=== PATIENT | female | born 1945 | race Caucasian/White ===

== ENCOUNTER 2022-01-31 02:41 | Inpatient (IN) | payer MEDICARE, SELFPAY ==
[2022-01-31] VITALS (25 sets, daily range): BP systolic 98–123; BP diastolic 67–79; PULSE 68–127; RESP 14–18; TEMP 36.4–37; O2SAT 85–98; BMI 17.3
--- NOTE | 2022-01-31 02:51 | PCM.HP.STD ---
HPI - General General Date of Admission: 01/31/22 HPI Narrative JUANJOSE CUEVA, is a 76 F who presents as transfer from [facility]. The patient was recently seen ED in [place], and was transferred here for further cardiac evaluation. She has history of COPD with tobacco use of 40 years, and was recently evaluated by pulmonology for increasing shortness of breath and was increased on her inhalers however she continued to have symptoms. Today was the worst shortness of breath she has ever had and it was not alleviated with her home inhalers. She is on TRELEGY and albuterol inhaler. She presented to the ER with shortness of breath and was hypoxic at 88%, she was given steroids and duo nebs and her breathing did improve and she was 94 to 96% on 2 L. She did have elevated heart rate and EKG noted sinus tachycardia and a troponin was drawn which was elevated and subsequent second troponin was elevated, prompting transfer. Patient was transferred here in stable condition. Is a tobacco user 1 pack/day, for 40 years and family history did note father with early heart disease in his 40s [facility] Medical History COPD (chronic obstructive pulmonary disease) Hernia Kidney stones Smoker Home Medications albuterol sulfate 2 puff INHALATION Q4H PRN 01/31/22 [History Last Taken Unknown] jzxdufrrhir-ipqsagvyy-kzjlsjdm [Trelegy Ellipta] 1 ea INHALATION DAILY 01/31/22 [History Last Taken Unknown] ipratropium-albuterol 3 ml INHALATION Q6H PRN 01/31/22 [History Last Taken Unknown] ditxpezddkaa-vbxo-htmig acid [Multi Complete with Iron] 1 tab PO DAILY 01/31/22 [History Last Taken Unknown] omega 7-grn-koc-fish oil 2 cap PO DAILY 01/31/22 [History Last Taken Unknown] Allergy/AdvReac Type Severity Reaction Status Date / Time brompheniramine Allergy Other Verified 01/31/22 02:50 [From Bromphenex DM] dextromethorphan Allergy Other Verified 01/31/22 02:50 [From Bromphenex DM] pseudoephedrine Allergy Other Verified 01/31/22 02:50 [From Bromphenex DM] Social History Smoking Status: Current every day smoker tobacco type: cigarettes ROS ROS Narrative Patient review is notable for shortness of breath, ongoing weight loss, chest pain dysuria hematuria abdominal pain constipation Rest of seven-point review is negative as well Vital Signs Vital Signs Vital Signs: Weight Weight: 91 lb 11.397 oz Body Mass Index (BMI) 17.3 Physical Exam Narrative Narrative General Appearance ED: cachectic and NAD Nutritional Appearance: above dry mucous membranes normocephalic Eyes PERRL Neck thin Chest Wall inspection of chest normal and palpation of chest normal Respiratory normal respiratory effort, no retractions and minimal air movement but no wheezes Auscultation: Negative for rales, rhonchi or wheezes Cardio fast rate, regular rhythm, S1 normal heart sound, S2 normal heart sound and no murmurs GI non-tender, non-distended and no masses Auscultation: normoactive bowel sounds Palpation: soft; Negative for tender or guarding no lower extremity edema Assessment & Plan Assessment/Plan (1) NSTEMI, initial episode of care: (2) COPD exacerbation: (3) Acute and chronic respiratory failure with hypoxia: PLAN: Elevated troponin - NSTEMI - likely due to demand. Continue monitoring on telemetry, will give 25 mg metoprolol. 2D echo. Stress test and keep NPO. She was advised regarding smoking cessation Continue aspirin 81 mg daily Monitor BP PRN nitroglycerin Continue Heparin drip which patient was transferred on. COPD Continue scheduled DuoNebs while awake, continue p.o. 40 mg prednisone Patient is in no respiratory distress at this time Will titrate nasal cannula oxygen as needed No concern for pneumonia. 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
--- NOTE | 2022-01-31 03:08 | ECHOCS_ITS ---
Reason For Study: NSTEMI Procedure This was a 2D Doppler, Color Flow transthoracic echocardiogram. The study was technically difficult. Contrast injection was performed. Exam performed portable in patient room. Left Ventricle Normal LV size. Moderate segmental systolic dysfunction (see wall motion). The estimated ejection fraction is 35 %. No evidence for diastolic dysfunction. Mid-Anterior : Akinetic. Mid-Lateral : Akinetic. Mid-Posterior: Akinetic. Mid-Inferior: Akinetic. Mid-inferoseptal : Akinetic. Mid- anteroseptal : Akinetic. [place] : Akinetic. Right Ventricle Normal RV size. Normal systolic function. Atria Normal left atrium. Normal right atrium. No doppler evidence for ASD. Mitral Valve There is no mitral annular calcification. Anterior leaflet diffuse mitral valve thickening. Mild (1+) mitral valve insufficiency. Tricuspid Valve Normal tricuspid valve. Mild tricuspid valve insufficiency. Right ventricular systolic pressure estimated to be 36 mmHg. Aortic Valve Trisinus/trileaflet aortic valve. Mild focal aortic valve thickening. Pulmonic Valve The pulmonic valve is not well visualized. Great Vessels Normal sized aortic root. Pericardium/Pleural No pericardial effusion. Medication Diluted definity 2ml given slow IV push to enhance endocardial definition. MMode/2D Measurements & Calculations LVIDd: 4.0 cm IVSd: 0.81 cm Ao root diam: 3.1 cm LVIDs: 2.8 cm LVPWd: 0.72 cm RVDd: 2.3 cm FS: 29.8 % LAV(MOD-bp): 20.7 ml LA A4 area: 9.2 cm2 LA dimension(2D): 2.5 cm LAV(MOD-bp) Indexed: 15.1 ml/m2 LAV(MOD-sp2): 23.4 ml LAV(MOD-sp4): 17.4 ml RA A4 area: 7.0 cm2 Doppler Measurements & Calculations MV E max lauro: 79.5 cm/sec Lat Peak E' Lauro: 5.9 cm/sec Med Peak E' Lauro: 6.6 cm/sec MV A max lauro: 105.3 cm/sec E/E' lat: 13.5 E/E' med: 12.0 MV E/A: 0.75 Ao V2 max: 105.5 cm/sec PA V2 max: 92.0 cm/sec TR max lauro: 263.5 cm/sec Ao max P.5 mmHg TR max P.8 mmHg ECHO/Echo Complete W/ Contrast Interpretation Summary The study was technically difficult. Contrast injection was performed. Moderate segmental systolic dysfunction (see wall motion). The estimated ejection fraction is 35 %. Anterior leaflet diffuse mitral valve thickening. Mild (1+) mitral valve insufficiency. Mild tricuspid valve insufficiency. Mild focal aortic valve thickening. Right ventricular systolic pressure estimated to be 36 mmHg. No evidence for diastolic dysfunction. Comment: Based upon the 2D echocardiographic images of the left ventricle would consider in the differential diagnosis possible Takotsubo syndrome. Ordering Physician: Osmar Stephenson Referring Physician: Vannesa Martin Performed By: Annie Garcia RDCS
--- NOTE | 2022-01-31 03:08 | EKG12_ITS ---
Test Reason : Blood Pressure : / mmHG Vent. Rate : 120 BPM Atrial Rate : 120 BPM P-R Int : 124 ms QRS Dur : 074 ms QT Int : 240 ms P-R-T Axes : 076 006 133 degrees QTc Int : 339 ms Sinus tachycardia Septal infarct , age undetermined Abnormal ECG No previous ECGs available Confirmed by COREY MOSER, AIRN ([id number]), news videotape editor VERENICE NYE ([id number]) on 02/01/2022 9:33:05 AM Referred By: TIO Confirmed By:ARIN NICOLE MD
[2022-01-31 04:17] LABS: Absolute Lymphocyte Count 0.44 X10^3/uL (0.83-4.51); Absolute Neutrophil Count 5.7 X10^3/uL (2.0-7.7); Basophil# 0.01 X10^3/uL; Basophil% 0.2 % (0-1); Hematocrit 39.5 % (37-47); Hemoglobin 13.5 g/dL (12.0-15.0); Lymphocyte # 0.44 X10^3/ul (0.83-4.51); Mean Corp Hgb Conc 34.2 g/dL (32-36); Mean Corpuscular Hgb 30.8 pg (27.0-32.0); Mean Platelet Vol. 8.6 fl (6.2-12.0); Monocyte# 0.12 X10^3/uL; Monocyte% 1.9 % (0-10); NRBC Flagged by Analyzer 0 % (0-5); Neutrophil # 5.73 X10^3/uL (2.7-7.7); Neutrophil % 90.6 % (47-70); POSITIVE DIFFERENTIAL YES; Platelet Count 280 K/mm3 (150-450); RBC Distribution Width CV 12.7 % (11.6-14.6); RBC Distribution Width SD 42.2 fl (35.1-43.9); Red Blood Count 4.39 M/mm3 (4.2-5.4); White Blood Count 6.3 K/mm3 (4.4-11.0)
[2022-01-31 04:20] LABS: Differential Indicated SCAN CRITERIA MET
[2022-01-31 04:47] LABS: Anion Gap 7 (5-15); BUN 16 mg/dL (7-18); BUN/Creat Ratio 28.9 RATIO (10-20); Calcium,Total 8.8 mg/dL (8.5-10.1); Chloride 108 mmol/L (98-107); Creatinine, Serum 0.55 mg/dL (0.55-1.02); EST Glomerular Filtration Rate 114 mL/min (>60); Est Glom Filt Rate - Afr Amer 138 mL/min (>60); Estimated Creatinine Clearance 32.41 ml/min; Glucose 175 mg/dL (74-106); Magnesium 1.8 mg/dL (1.6-2.6); Potassium 3.8 mmol/L (3.5-5.1); Sodium Level 139 mmol/L (136-145)
[2022-01-31 04:48] LABS: Cholesterol 211 mg/dL (200); High Density Lipoprotein 87 mg/dL; Triglycerides 50 mg/dL; Troponin-I HS 1573 pg/mL (3.0-54.0); Very Low Density Lipoprotein 10 mg/dL (5-40)
[2022-01-31 05:35] LABS: Partial Thromboplast Time 45.5 Seconds (24.1-36.2)
[2022-01-31] MEDS: Ipratropium/Albuterol Sulfate 3 ML AMPUL.NEB INHALATION ×2 (06:48→19:13)
[2022-01-31] MEDS: 0.9% Saline Lock 10 ML Syringe IV ×2 (06:51→21:00)
[2022-01-31] MEDS: Metoprolol Tartrate 5 MG/5 ML Vial 2.5 MG IV (06:51)
[2022-01-31] MEDS: 0.9% Normal Saline 1,000 ML 100 ML IV (06:58)
--- NOTE | 2022-01-31 08:27 | PCM.CONS.C ---
Assessment & Plan Assessment/Plan (1) NSTEMI, initial episode of care: PLAN: The patient has findings compatible with an acute non-ST segment elevation ID. It is unclear at this time whether this is an acute coronary syndrome event/type I event versus whether this could be a type II event brought out by the patient's underlying pulmonary disease process. At the moment she is being monitored. Her cardiac enzymes have been followed. Her ECG has been reviewed. Recommendation has been made for further evaluation with diagnostic cardiac catheterization. The procedure and risks of been discussed with her. She was agreeable to this approach. (2) Acute and chronic respiratory failure with hypoxia: PLAN: The patient does have what appears to be acute on chronic respiratory failure and has been noted to have reports of hypoxemia. This may be secondary to her underlying COPD process. She does follow with a curb machine operator-not at [facility]. Depending upon her clinical course she may need evaluation by pulmonology while at [facility]. (3) COPD exacerbation: PLAN: The patient has a history of COPD. She does not know the details of her COPD. She states she does not wear O2 nasal cannula at home. Again she may need further pulmonology evaluation while she is hospitalized. Addt'l Comments This note was generated using a voice recognition system and there may be incorrect words, spelling or punctuation that were not noted when reviewing the office note prior to saving. HPI Consult Data Date of Consult: 01/31/22 HPI Narrative HPI Narrative: JUANJOSE CUEVA, is a 76 year old white female who presents for vascular consultation based upon concerns of an acute non-ST segment elevation ID. She states she has a longstanding history of COPD and chronic shortness of breath/dyspnea. However yesterday she felt that she could not get her breath. She presented to her local emergency department at [facility]. She was noted to have concerns of shortness of breath and dyspnea. She was reported as having an abnormal troponin I level. Her ECG demonstrated sinus rhythm with possible left atrial enlargement. A chest CTA was performed which reported no pulmonary emboli. There was a question of a possible pulmonary changes related to aspiration. She was recommended for further evaluation with diagnostic cardiac catheterization. She stated she requested transfer to [facility] as she has had family members cared for at this institution in the past. During this event she has denied chest discomfort. She denies any nausea or emesis or diaphoresis. She has had no episodes of orthopnea or PND or peripheral pitting edema. She states she has been losing weight. She has had repeat troponin I levels which have been elevated. A repeat ECG demonstrated sinus rhythm with a septal ID pattern of indeterminate age cannot be excluded. PFSH Medical History COPD (chronic obstructive pulmonary disease) Hernia Kidney stones Smoker Home Medications albuterol sulfate 2 puff INHALATION Q4H PRN 01/31/22 [History Last Taken Unknown] kxrnyurxrhc-egvgylsor-wfbbpkhb [Trelegy Ellipta] 1 ea INHALATION DAILY 01/31/22 [History Last Taken Unknown] ipratropium-albuterol 3 ml INHALATION Q6H PRN 01/31/22 [History Last Taken Unknown] hxfztmfytyli-ajpm-hawsd acid [Multi Complete with Iron] 1 tab PO DAILY 01/31/22 [History Last Taken Unknown] omega 5-mif-ntl-fish oil 2 cap PO DAILY 01/31/22 [History Last Taken Unknown] Allergy/AdvReac Type Severity Reaction Status Date / Time brompheniramine Allergy Other Verified 01/31/22 02:50 [From Bromphenex DM] dextromethorphan Allergy Other Verified 01/31/22 02:50 [From Bromphenex DM] pseudoephedrine Allergy Other Verified 01/31/22 02:50 [From Bromphenex DM] Social History Smoking Status: Current every day smoker tobacco type: cigarettes ROS Constitutional Constitutional: Reports as per HPI Eyes Eyes: Reports as per HPI ENT HEENT: Reports as per HPI Cardiovascular Cardiovascular: Reports dyspnea Respiratory/Chest Respiratory/Chest: Reports dyspnea Gastrointestinal Gastrointestinal: Reports weight changes Genitourinary Genitourinary: Reports as per HPI Musculoskeletal Musculoskeletal: Reports as per HPI Integumentary Integumentary: Reports as per HPI Neurologic Neurologic: Reports as per HPI Physical Exam Const alert, oriented x3 and no apparent distress Orientation / Consciousness: awake HEENT normocephalic, head/scalp atraumatic and hearing grossly normal bilaterally Eyes PERRL, EOMs intact bilaterally and conjunctivae normal Neck full ROM, supple and no JVD Resp Auscultation: diminished lung sounds Cardio regular rate, regular rhythm, S1 normal heart sound and S2 normal heart sound Extremity normal to inspection Skin no rashes or lesions noted Neuro oriented x3, moves all extremities, no focal motor deficits and no sensory deficits noted Psych mental status grossly normal Risk Stratification Risk Stratification Applicable: Yes Age >/= 65: Yes >/= 3 CAD Risk Factors (HTN, HLD, DM, family hx of CAD, or current smoker): No Aspirin Use in the Past 7 Days: No Severe Angina (>/= episodes in 24 hours): No EKG ST Changes >/= 0.5mm: No Positive Cardiac Marker: Yes SHAILA Risk Stratification Score: 2 SHAILA % Risk: 8% Risk Procedure Criteria Type of Procedure Procedure Type: Elective Elective Risks - COVID COVID Risk Discussion: The surgeon/proceduralist and patient have discussed in detail the risk of exposure to and/or potential harm posed by the COVID-19 virus with having a surgery/procedure at this time versus the risk of delaying the surgery/procedure. It is not possible to know either the risk of delaying the surgery or procedure or chance of getting an infection with perfect accuracy, but a joint decision was made between the patient and the surgeon/proceduralist to proceed at this time with the scheduled surgery/procedure as indicated on the consent form. Objective Data Vital Signs: Vital Signs Temp Pulse Resp BP Pulse Ox 98.2 F 104 H 18 112/77 94 01/31/22 06:34 01/31/22 07:31 01/31/22 06:48 01/31/22 06:34 01/31/22 06:48 Oxygen Flow Rate (L/min) 2 Oxygen Delivery Method Nasal Cannula Weight: 91 lb 11.397 oz Body Mass Index (BMI) 17.3 Intake & Output: Intake and Output for Last 24 Hours 01/29/22 01/30/22 01/31/22 23:59 23:59 23:59 Intake Total 22.74 / 22.74 Balance 22.74 / 22.74 Lab / Micro Data Result Diagrams: 01/31/22 04:09 01/31/22 04:09 Labs: Laboratory Results - last 24 hr 01/31/22 04:09: Sodium 139, Potassium 3.8, Chloride 108 H, Carbon Dioxide 24.0, Anion Gap 7, BUN 16, Creatinine 0.55, Estim Creat Clear Calc 32.41, Est GFR (MDRD) Af Amer 138, Est GFR (MDRD) Non-Af 114, BUN/Creatinine Ratio 28.9 H, Glucose 175 H, Calcium 8.8, Magnesium 1.8 01/31/22 04:09: Troponin I High Sens 1573 H*, Triglycerides 50, Cholesterol 211 H, LDL Cholesterol 114, VLDL Cholesterol 10, HDL Cholesterol 87 01/31/22 04:09: WBC 6.3, RBC 4.39, Hgb 13.5, Hct 39.5, MCV 90.0, MCH 30.8, MCHC 34.2, RDW Std Deviation 42.2, RDW Coeff of Carter 12.7, Plt Count 280, MPV 8.6, Immature Gran % (Auto) 0.300, Neut % (Auto) 90.6 H, Lymph % (Auto) 7.0 L, [place] % (Auto) 1.9, Eos % (Auto) 0.0, Baso % (Auto) 0.2, Absolute Neuts (auto) 5.7, Absolute Lymphs (auto) 0.44 L, Nucleated RBC % 0 01/31/22 05:09: APTT 45.5 H Cardiology Labs/Tests 01/31/22 04:09: Sodium 139, Potassium 3.8, Chloride 108 H, Carbon Dioxide 24.0, Anion Gap 7, BUN 16, Creatinine 0.55, Est GFR (MDRD) Af Amer 138, Est GFR (MDRD) Non-Af 114, BUN/Creatinine Ratio 28.9 H, Glucose 175 H, Calcium 8.8, Magnesium 1.8 01/31/22 04:09: Triglycerides 50, Cholesterol 211 H, LDL Cholesterol 114, VLDL Cholesterol 10, HDL Cholesterol 87 01/31/22 04:09: WBC 6.3, RBC 4.39, Hgb 13.5, Hct 39.5, MCV 90.0, MCH 30.8, MCHC 34.2, Plt Count 280, MPV 8.6, Immature Gran % (Auto) 0.300, Neut % (Auto) 90.6 H, Lymph % (Auto) 7.0 L, [place] % (Auto) 1.9, Eos % (Auto) 0.0, Baso % (Auto) 0.2, Absolute Neuts (auto) 5.7, Nucleated RBC % 0 01/31/22 05:09: APTT 45.5 H Rhythm: Sinus rhythm EKG: As noted above
[2022-01-31 08:54] LABS: Hemoglobin A1c 5.8 % (3.8-5.6)
--- NOTE | 2022-01-31 09:05 | CASEMGMT ---
According to the [facility] website, the following are in-network tertiary facilities: [facility], [place], [facility], [facility], [facility], [facility], and . Darrell THOMASON CM
[2022-01-31 10:00] LABS: Thyroid Stim Hormone (TSH) 0.29 uIU/mL (0.358-3.74)
--- NOTE | 2022-01-31 10:08 | CL.D_ITS ---
Patient Name: JUANJOSE CUEVA Study Date: 01/31/2022 Performing: Oliver Silverio MD Ht: 61 inches 155 cm : 1945 Wt: 92.7 lbs 42 kg Age: 76 Gender: female BSA: 1.36 PROCEDURE(S) PERFORMED [id number])LHC/COR/LV CLINICAL PROFILE AND INDICATIONS Indications: ACS <= 24 hrs, Suspected CAD Heart Failure: None Stress/Imaging Stress/Image Study Performed: No Angina Classification Anginal Classification w/in 2 Weeks: CCS IV CAD Presentations: Non-STEMI. CONCLUSIONS Elevated Left Ventricular End Diastolic Pressure Segmented LV systolic dysfunction- Mild LVEF: by LV gram 45 % [place] Multivessel CAD (non angiographically significant) RECOMMENDATIONS Risk factor modification Medical therapy DESCRIPTION OF PROCEDURE The patient arrived to the procedure lab. The risks and benefits of the procedure as well as a full d escription of our services here and current unavailability of surgical backup were fully explained to the patient and/or their significant other prior to the catheterization. The Timeout was completed, verifying the correct patient and procedure. The patient's procedural site was prepped and draped in the usual fashion. Local anesthetic was given subcutaneously to right radial region with Lidocaine 2% . Using a modified Seldinger technique, arterial access was obtained via the right radial artery, a 6 Fr sheath was inserted. Left Coronary Artery selective angiography was performed in multiple views u sing a 5 Fr. 4.0 [place] catheter. Right Coronary Artery selective angiography was then performed in mu ltiple views using a 5 Fr. 4.0 [place] catheter. Left Ventriculography was performed in OROZCO projection using a 5 Fr. [place] catheter. LV to AO pullback pressures were then recorded.The arterial sheath was pulled and a TR Band was applied for hemostasis CORONARY ANGIOGRAPHY DOMINANCE: Co- Dominant LEFT HEART ASSESSMENT Left Ventricular Ejection Fraction: by LV Gram 45 % Anterior Hypokinesis. Inferior Mid Hypokinesis. Apical Hypokinesis Elevated Left Ventricular End Diastolic Pressure LVEDP: 35 mmHg LEFT MAIN: Angiographically normal LEFT ANTERIOR DESCENDING ARTERY: Mild luminal irregularities DIAGONAL 1: Proximal - eccentric: 25 % Stenosis CIRCUMFLEX ARTERY: PROX CIRC: Mild luminal irregularities RIGHT CORONARY ARTERY: Mild luminal irregularities PROX RCA: eccentric: 25 % Stenosis AORTIC ROOT: Angiographically normal COMPLICATIONS No Complications PROCEDURE MEDICATIONS Versed 1 mg IV Fentanyl 50 mcg IV Baby Aspirin (81mg) 1 Tabs PO @ 01/31/2022 08:32:25 Heparin given IA 01/31/2022 08:47:49 Verapamil 2.5mg, Ntg 100mcgs, 3000 units of Heparin given IA 01/31/2022 08:47:49 SUMMARY OF HEMODYNAMIC DATA Time AIR REST ECG 08:30:18 Art 121/66 (88) 08:44:25 AO 109/69 (85) SA 08:50:06 LV 123/7, 37 08:56:33 LV 121/5, 35 08:56:40 LV 120/16, 40 08:57:44 LV 124/9, 38 08:57:51 LVp 127/9, 35 08:57:58 AOp 121/74 (95) 08:58:03 Signed By Oliver Silverio MD On 01/31/2022 10:07:06 Oliver Silverio MD
[2022-01-31] MEDS: Acetaminophen 325 MG Tablet 650 MG PO (10:11)
[2022-01-31] MEDS: predniSONE 20 MG Tablet 40 MG PO (10:13)
--- NOTE | 2022-01-31 10:14 | EX.PCM.CONCC ---
Assessment & Plan Assessment/Plan (1) NSTEMI, initial episode of care: PLAN: RECOMMENDATIONS: 1. Wean supplemental oxygen to maintain saturations at or above 90%. 2. Okay to continue scheduled bronchodilators and Solu-Medrol for now. 3. Resume Trelegy Ellipta at discharge along with as needed albuterol. 4. Perform walking oximetry study prior to consideration for discharge home. 5. The patient should follow-up in the pulmonary medicine clinic within 2 weeks of discharge. IMPRESSIONS: 1. Shortness of breath/NSTEMI The patient initially presented as a transfer of care from an outside facility with shortness of breath and an elevated troponin. There was initial concern for an NSTEMI and the patient was taken for cardiac catheterization, which revealed nonangiographically significant bent[place] multivessel coronary artery disease. Ejection fraction was noted to be 45%. I do strongly suspect that there may have been a component of demand ischemia, especially in light of the patient's presumed obstructive lung disease. Although she reported that she was seen by a iron erector in [place] recently, pulmonary function studies nor an ambulatory walking test were ever completed. Therefore, it is certainly plausible that the patient may have been hypoxic at home yesterday with associated tachycardia and tachypnea, which may have precipitated an event of demand ischemia. She does have an extensive tobacco abuse history and stated that she does not have intentions to continue to smoke after discharge. Ultimately, the patient needs to establish care with a local iron erector and needs to have PFTs completed. In addition, I would strongly recommend that an ambulatory pulse oximetry study be completed prior to her discharge home to ensure that she does not require supplemental O2 upon discharge. The patient should follow-up in the pulmonary medicine clinic within 2 weeks of discharge so that PFTs can be order and further pulmonary optimization undertaken. 2. Chronic tobacco dependency I personally spent 3 minutes discussing the deleterious effects of continued tobacco use with the patient, including modalities which could be utilized to achieve a smoke-free lifestyle. As noted above, the patient needs to have baseline PFTs completed on an outpatient basis. In addition, she would be a candidate for yearly LDCT. This note was generated with [employer] software. It may contain incorrect words, spelling, and punctuation that were not noted in checking the note before signing. HPI Consult Data Date of Consult: 01/31/22 HPI Narrative Reason for Consultation: Evaluate for pulmonary reason for demand ischemia HPI Narrative: The patient is a 76-year-old female, with a history as outlined below, who presented as a transfer of care on January 31 from [facility] with increasing shortness of breath. The patient does have an extensive tobacco abuse history of approximately 40 pack years and continues to smoke cigarettes daily. She did report that she was evaluated by a iron erector in [place] recently, who apparently told her that she had COPD based upon the results of a recent CT chest. According to the patient, pulmonary function studies nor an ambulatory walking oximetry study was ever ordered. Instead, the patient was placed on Trelegy by the pulmonary provider. To date, the patient has never completed pulmonary function studies. She does report that she utilizes her Trelegy once daily as instructed in the morning and typically requires the use of her rescue inhaler several times per week. Yesterday, the patient developed more significant dyspnea, which did not respond to the use of her rescue inhaler or nebulizer. On presentation to [facility], the patient was noted to be tachycardic but otherwise hemodynamically stable on 2 L/min of supplemental oxygen. CBC with differential was unremarkable. Chemistry profile was unrevealing. Troponin was increased at 1573. The patient was subsequently evaluated by cardiology and underwent a catheterization, which revealed an elevated LVEDP, mild segmental systolic dysfunction, ejection fraction of 45% and benton multivessel coronary artery disease. PFSH Medical History COPD (chronic obstructive pulmonary disease) Hernia Kidney stones Smoker Home Medications albuterol sulfate 2 puff INHALATION Q4H PRN 01/31/22 [History Last Taken Unknown] gqapvmyayto-cpoavmsou-imxpotoe [Trelegy Ellipta] 1 ea INHALATION DAILY 01/31/22 [History Last Taken Unknown] ipratropium-albuterol 3 ml INHALATION Q6H PRN 01/31/22 [History Last Taken Unknown] zrxhseapoipy-ctys-bpskh acid [Multi Complete with Iron] 1 tab PO DAILY 01/31/22 [History Last Taken Unknown] omega 1-err-rvf-fish oil 2 cap PO DAILY 01/31/22 [History Last Taken Unknown] Allergy/AdvReac Type Severity Reaction Status Date / Time brompheniramine Allergy Other Verified 01/31/22 02:50 [From Bromphenex DM] dextromethorphan Allergy Other Verified 01/31/22 02:50 [From Bromphenex DM] pseudoephedrine Allergy Other Verified 01/31/22 02:50 [From Bromphenex DM] Surgical History (Updated 01/31/22 @ 11:43 by Katie Barrera) History of left heart catheterization (LHC) (~01/31/22) Social History Smoking Status: Current every day smoker tobacco type: cigarettes ROS Constitutional Constitutional: Denies body ache(s), chills or fatigue Eyes Eyes: Denies blurry vision or change in vision ENT HEENT: Denies dizziness, epistaxis or headache(s) Cardiovascular Cardiovascular: Reports dyspnea Respiratory/Chest Respiratory/Chest: Reports cough and dyspnea Gastrointestinal Gastrointestinal: Denies abdominal pain, diarrhea, nausea or vomiting Genitourinary Genitourinary: Denies difficulty urinating Musculoskeletal Musculoskeletal: Denies arthralgias, back pain or joint pain Integumentary Integumentary: Denies lesions Neurologic Neurologic: Denies abnormal gait or abnormal speech Psychiatric Psychiatric: Denies anxiety or depression Endocrine Endocrinology: Denies fatigue Hematologic/Lymphatic Hematologic/Lymphatic: Denies easy bleeding or easy bruising Physical Exam Const alert and no apparent distress General Appearance: cooperative HEENT normocephalic, head/scalp atraumatic and moist oral mucous membranes Eyes PERRL, EOMs intact bilaterally and conjunctivae normal Neck supple General: trachea midline Chest Chest Narrative: Increased AP diameter. Resp Resp Narrative: Prolonged expiratory phase. Auscultation: wheezes and diminished lung sounds Cardio regular rate and regular rhythm GI normal to inspection, nondistended, normoactive bowel sounds Extremity no clubbing, cyanosis or edema Skin no rashes or lesions noted Neuro CN's II-XII intact bilaterally, moves all extremities and no focal motor deficits Psych cooperative and affect normal Lab / Micro Data Result Diagrams: 01/31/22 04:09 01/31/22 04:09 Labs: Laboratory Results - last 24 hr 01/31/22 04:09: Sodium 139, Potassium 3.8, Chloride 108 H, Carbon Dioxide 24.0, Anion Gap 7, BUN 16, Creatinine 0.55, Estim Creat Clear Calc 32.41, Est GFR (MDRD) Af Amer 138, Est GFR (MDRD) Non-Af 114, BUN/Creatinine Ratio 28.9 H, Glucose 175 H, Calcium 8.8, Magnesium 1.8 01/31/22 04:09: Troponin I High Sens 1573 H*, Triglycerides 50, Cholesterol 211 H, LDL Cholesterol 114, VLDL Cholesterol 10, HDL Cholesterol 87 01/31/22 04:09: WBC 6.3, RBC 4.39, Hgb 13.5, Hct 39.5, MCV 90.0, MCH 30.8, MCHC 34.2, RDW Std Deviation 42.2, RDW Coeff of Carter 12.7, Plt Count 280, MPV 8.6, Immature Gran % (Auto) 0.300, Neut % (Auto) 90.6 H, Lymph % (Auto) 7.0 L, [place] % (Auto) 1.9, Eos % (Auto) 0.0, Baso % (Auto) 0.2, Absolute Neuts (auto) 5.7, Absolute Lymphs (auto) 0.44 L, Nucleated RBC % 0 01/31/22 04:09: Troponin I High Sens Cancelled, TSH 0.29 L 01/31/22 04:09: Hemoglobin A1c 5.8 H 01/31/22 05:09: APTT 45.5 H Charges/Coding Visit Charges Inpatient E&M: 12284 Init Hosp L3 Behavior Interventions Behavior Intervention: 04259 Smoking Cessation 3-10 min
--- NOTE | 2022-01-31 10:45 | CASEMGMT ---
PADDY MAYS assessment: Face to Face with patient for initial transition planning/care coordination assessment. PADDY MAYS introduced self and role at [facility], pt voices understanding and consents to assessment. Pt is sitting up in bed in no distress on 2L nc. Pt is A/Ox4 and answers all questions appropriately. Care providers, pharmacy, and demographics verified/updated. Presentation: Pt was direct admit from [facility] for elev troponin-pt also with SOB Admitting dx: NSTEMI, COPD, hypoxia PCP: Mario Specialists: Pt states was seeing pulm in [place] but plans to f/u with Dr. Olson or [place] Preferred Pharmacy: [facility] Benefit[facility] Living Will/HPOA: Pt does not have LW/HPOA and declines AD info. LNOK: Rich Soria, Living Arrangements: Pt lives with in 1 story home with 3-4 railed steps in and states no concerns at home. Pt is independent with ADL's. Transportation: Pt states drives self and states no transportation concerns. DME/HHC: Pt states no current DME or need for any further DME. Pt states no preference for DME company, if qualifies for home oxygen at discharge. Pt states no hx of HHC or SNF. Pt states no concerns with going home at time of discharge. Pt states is retired. Pt states smokes pack cigarettes daily and does not drink ETOH. Pt states no further concerns/needs. CM to follow for home oxygen need and any further discharge planning/needs. Advised pt to ask for CM if any further questions/concerns/needs arise, voices understanding. Pt Goal: Home Plan: [place] PADDY MAYS
[2022-01-31 11:41] LABS: Bedside Glucose 118 mg/dL (74-106)
--- NOTE | 2022-01-31 12:16 | PN.HOSP_ITS ---
Documented by User: Ean PRAKASH 01/31/22 12:33 Subjective Subjective Patient is a 76-year-old female lying in bed, alert and orient x3. Patient reports that she still feels short of breath, although reports this is improved from admission. Denies development of any infectious symptoms to include fever, chills, N/V/D. Does not appear in acute distress. Objective Data Objective Data Vital Signs: Vital Signs Temp Pulse Resp BP Pulse Ox 97.8 F 89 14 115/79 98 01/31/22 09:23 01/31/22 11:47 01/31/22 11:47 01/31/22 11:47 01/31/22 11:47 Oxygen Flow Rate (L/min) 2 Oxygen Delivery Method Nasal Cannula Weight: 91 lb 11.397 oz Body Mass Index (BMI) 17.3 Intake & Output: Intake and Output for Last 24 Hours 01/29/22 01/30/22 01/31/22 23:59 23:59 23:59 Intake Total 382.74 / 382.74 Balance 382.74 / 382.74 Lab / Micro Data Result Diagrams: 01/31/22 04:09 01/31/22 04:09 Labs: Laboratory Results - last 24 hr 01/31/22 04:09: Sodium 139, Potassium 3.8, Chloride 108 H, Carbon Dioxide 24.0, Anion Gap 7, BUN 16, Creatinine 0.55, Estim Creat Clear Calc 32.41, Est GFR (MDRD) Af Amer 138, Est GFR (MDRD) Non-Af 114, BUN/Creatinine Ratio 28.9 H, Glucose 175 H, Calcium 8.8, Magnesium 1.8 01/31/22 04:09: Troponin I High Sens 1573 H*, Triglycerides 50, Cholesterol 211 H, LDL Cholesterol 114, VLDL Cholesterol 10, HDL Cholesterol 87 01/31/22 04:09: WBC 6.3, RBC 4.39, Hgb 13.5, Hct 39.5, MCV 90.0, MCH 30.8, MCHC 34.2, RDW Std Deviation 42.2, RDW Coeff of Carter 12.7, Plt Count 280, MPV 8.6, Immature Gran % (Auto) 0.300, Neut % (Auto) 90.6 H, Lymph % (Auto) 7.0 L, [place] % (Auto) 1.9, Eos % (Auto) 0.0, Baso % (Auto) 0.2, Absolute Neuts (auto) 5.7, Absolute Lymphs (auto) 0.44 L, Nucleated RBC % 0 01/31/22 04:09: Troponin I High Sens Cancelled, TSH 0.29 L 01/31/22 04:09: Hemoglobin A1c 5.8 H 01/31/22 04:09: Free T4 1.40 01/31/22 05:09: APTT 45.5 H 01/31/22 11:31: POC Glucose 118 H Radiography Diagnostic Testing: Radiology Impression Echocardiogram 01/31/22 03:08 Interpretation Summary The study was technically difficult. Contrast injection was performed. Moderate segmental systolic dysfunction (see wall motion). The estimated ejection fraction is 35 %. Anterior leaflet diffuse mitral valve thickening. Mild (1+) mitral valve insufficiency. Mild tricuspid valve insufficiency. Mild focal aortic valve thickening. Right ventricular systolic pressure estimated to be 36 mmHg. No evidence for diastolic dysfunction. Comment: Based upon the 2D echocardiographic images of the left ventricle would consider in the differential diagnosis possible Takotsubo syndrome. Ordering Physician: Osmar Stephenson Referring Physician: Vannesa Martin Performed By: Annie Garcia RDCS Physical Exam Const alert, oriented x3 and no apparent distress HEENT head/scalp atraumatic and moist oral mucous membranes Head and Scalp: normocephalic Eyes conjunctivae normal Neck no lymphadenopathy, supple and no JVD Resp normal respiratory effort, no retractions and no use of accessory muscles Resp Narrative: Patient is having 98% on 2 L via nasal cannula. Cardio regular rate, regular rhythm and no JVD GI normal to inspection, nondistended, normoactive bowel sounds Extremity normal to inspection Skin no rashes or lesions noted Neuro CN's II-XII intact bilaterally Psych affect normal Assessment & Plan Assessment/Plan (1) Acute and chronic respiratory failure with hypoxia: (2) COPD exacerbation: (3) NSTEMI, initial episode of care: PLAN: Day 1 Discharge planning: Current plan is for patient to discharge home medically ready. 1) acute on chronic hypoxic respiratory failure Unclear etiology, probable mixed component of her underlying CHF with Takotsubo and COPD. Currently satting 98% at 2 L via nasal cannula. Pulmonology consult obtained, recommendations are to continue current treatments and wean off oxygen as tolerated with outpatient follow-up to conduct PFTs. Echocardiogram obtained and demonstrated moderate's systolic dysfunction, an EF of 35% and RVSP of 36 mmHg and no evidence of diastolic dysfunction, findings consistent with Takotsubo syndrome. We will continue supplemental oxygen and wean as tolerated, initiate Entresto, initiate Coreg, initiate albuterol and transition from prednisone to IV steroids. 2) Elevated troponins secondary to demand ischemia Secondary to demand ischemia from #1. Plan as above and for patient to follow- up with pulmonary medicine as an outpatient. 3) hyperglycemia without history of diabetes Elevated glucose recorded on admission, hemoglobin A1c is 5.8. Continue Accu- Cheks with sliding scale insulin. 4) hyperlipidemia Cholesterol at 211. Continue statin, will need to be added to home regimen. DVT prophylaxis - Heparin Patient seen by Ean Huggins PA-C, under the supervision of Dr. Velázquez. Time spent on patient care: 10 minutes. Documented by User: Dr. Miriam Velázquez MD 01/31/22 12:34 Objective Data Lab / Micro Data Result Diagrams: 01/31/22 04:09 01/31/22 04:09
[2022-01-31] MEDS: Carvedilol 3.125 MG TABLET PO ×2 (13:02→20:58)
[2022-01-31 16:41] LABS: Bedside Glucose 124 mg/dL (74-106)
[2022-01-31] MEDS: SACUBITRIL/VALSARTAN 24/26 MG TABLET 1 EACH PO (20:58)
[2022-01-31] MEDS: Atorvastatin Calcium 40 MG Tablet PO (20:58)
[2022-01-31 21:06] LABS: Bedside Glucose 134 mg/dL (74-106)
[2022-01-31] MEDS: MELATONIN 3 MG TABLET PO (21:10)
[2022-02-01] VITALS (7 sets, daily range): BP systolic 120–126; BP diastolic 66–72; PULSE 72–95; RESP 16–18; TEMP 36.6–36.8; O2SAT 86–95
[2022-02-01 05:31] LABS: Absolute Neutrophil Count 11.9 X10^3/uL (2.0-7.7); Basophil# 0.02 X10^3/uL; Basophil% 0.1 % (0-1); Eosinophil# 0.01 X10^3/uL; Eosinophils% 0.1 % (0-5); Hematocrit 38.8 % (37-47); Hemoglobin 13.4 g/dL (12.0-15.0); Lymphocyte % 6.6 % (19-41); Mean Corp Hgb Conc 34.5 g/dL (32-36); Mean Corpuscular Hgb 30.3 pg (27.0-32.0); Mean Corpuscular Volume 87.8 fL (81-99); Monocyte# 0.77 X10^3/uL; Monocyte% 5.6 % (0-10); NRBC Flagged by Analyzer 0 % (0-5); Neutrophil # 11.86 X10^3/uL (2.7-7.7); Platelet Count 346 K/mm3 (150-450); RBC Distribution Width SD 41.7 fl (35.1-43.9); Red Blood Count 4.42 M/mm3 (4.2-5.4); White Blood Count 13.6 K/mm3 (4.4-11.0)
[2022-02-01] MEDS: 0.9% Saline Lock 10 ML Syringe IV (05:43)
[2022-02-01 05:53] LABS: ALB/GLOB Ratio 0.9 RATIO (0.9-2.4); AST(SGOT) 32 U/L (15-37); Alanine Aminotransfer ALT/SGPT 29 U/L (13-56); Alkaline Phosphatase 83 U/L (45-117); Anion Gap 4 (5-15); BUN 22 mg/dL (7-18); BUN/Creat Ratio 49.8 RATIO (10-20); Calcium,Total 8.7 mg/dL (8.5-10.1); Chloride 106 mmol/L (98-107); Creatinine, Serum 0.44 mg/dL (0.55-1.02); EST Glomerular Filtration Rate 148 mL/min (>60); Est Glom Filt Rate - Afr Amer 178 mL/min (>60); Estimated Creatinine Clearance 32.73 ml/min; Globulin 3.2 g/dL (2.2-4.2); Glucose 139 mg/dL (74-106); Magnesium 1.9 mg/dL (1.6-2.6); Potassium 4.2 mmol/L (3.5-5.1); Protein, Total 6.2 g/dL (6.4-8.2); Sodium Level 138 mmol/L (136-145)
--- NOTE | 2022-02-01 06:30 | PN.CC_ITS ---
Assessment & Plan Assessment/Plan (1) NSTEMI, initial episode of care: PLAN: RECOMMENDATIONS: 1. Wean supplemental oxygen to maintain saturations at or above 90%. 2. Continue bronchodilators and steroids. At discharge, please provide the patient with a 5-day course of prednisone 40 mg daily. 3. Resume Trelegy Ellipta at discharge along with as needed albuterol. 4. Perform walking oximetry study prior to consideration for discharge home. 5. The patient should follow-up in the pulmonary medicine clinic within 2 weeks of discharge. IMPRESSIONS: 1. Shortness of breath/NSTEMI The patient initially presented as a transfer of care from an outside facility with shortness of breath and an elevated troponin. There was initial concern for an NSTEMI and the patient was taken for cardiac catheterization, which revealed nonangiographically significant [place] multivessel coronary artery disease. Ejection fraction was noted to be 45%. I do strongly suspect that there may have been a component of demand ischemia, especially in light of the patient's presumed obstructive lung disease. Although she reported that she was seen by a medical interpreter in [place] recently, pulmonary function studies nor an ambulatory walking test were ever completed. Therefore, it is certainly plausible that the patient may have been hypoxic at home with associated tachycardia and tachypnea, which may have precipitated an event of demand ischemia. She does have an extensive tobacco abuse history and stated that she does not have intentions to continue to smoke after discharge. Ultimately, the patient needs to establish care with a local medical interpreter and needs to have PFTs completed. In addition, I would strongly recommend that an ambulatory pulse oximetry study be completed prior to her discharge home to ensure that she does not require supplemental O2 upon discharge. The patient should follow-up in the pulmonary medicine clinic within 2 weeks of discharge so that PFTs can be order and further pulmonary optimization undertaken. 2. Chronic tobacco dependency Tobacco cessation counseling was provided. As noted above, the patient needs to have baseline PFTs completed on an outpatient basis. In addition, she would be a candidate for yearly LDCT. This note was generated with [employer] software. It may contain incorrect words, spelling, and punctuation that were not noted in checking the note before signing. Subjective Subjective The patient was seen and examined at the bedside this morning. Events from the last 24 hours have been reviewed. The patient is currently afebrile, hemodynamically stable and maintaining appropriate oxygen saturations on 2 L/min via nasal cannula. There were no overnight issues. The patient is resting comfortably this morning without any specific complaints. Objective Data Objective Data The patient's most recent lab work, culture data and imaging studies have all been personally reviewed. Surface echocardiogram demonstrated moderate segmental systolic dysfunction with an ejection fraction of 35%. Right ventricular systolic pressure was estimated to be 36 mmHg. Cardiac catheterization demonstrated an elevated LVEDP and [place] multivessel coronary disease. Vital Signs: Vital Signs Temp Pulse Resp BP Pulse Ox 98.3 F 72 16 120/66 95 02/01/22 02:30 02/01/22 02:50 02/01/22 02:30 02/01/22 02:30 02/01/22 02:30 Oxygen Flow Rate (L/min) [ 2 AMBULATING with Oxygen #1] Oxygen Flow Rate (L/min) 2 Oxygen Delivery Method Nasal Cannula Weight: 42 kg Body Mass Index (BMI) 17.3 Intake & Output: Intake and Output for Last 24 Hours 01/30/22 01/31/22 02/01/22 23:59 23:59 23:59 Intake Total 1309.41 / 1309.41 Balance 1309.41 / 1309.41 Medical Nutrition Assessment Dietitian: Malnutrition Criteria Met Start: 01/31/22 15:34 Freq: Status: Active Protocol: Document 01/31/22 15:34 (Rec: 01/31/22 15:34 [id number]) Nutrition Malnutrition Evidence of Malnutrition Exists Yes Malnutrition (severe): Chronic Evidenced By Suboptimal Energy Intake ( Severe),Weight Loss (Severe), Physical Changes (Severe) Clinical Problem Chronic Disease or Condition Related Malnutrition Etiology severe, chronic malnutrition r /t inadequate energy intake w/ increased energy needs d/t COPD Signs/Symptoms as evidenced by estimated PO intake meeting <75% of estimated energy needs > 3 months; unintentional wt loss of 23.3#/20% x 1 year; severe cachexia- muscle wasting/fat loss evident in temples, clavicle, orbital, upper extremities; BMI 17.3 Status Active Problem Recommendation Dietitian Recommendations/Changes given severe malnutrition, will change diet to regular; will add ensure enlive 120mL 4x/day w/medpass and magic cup w/ dinner for additional calories/protein if consumed. Lab / Micro Data Attestation: I reviewed the patient's lab results. Result Diagrams: 02/01/22 04:41 02/01/22 04:41 Labs: Laboratory Results - last 24 hr 01/31/22 04:09: Troponin I High Sens Cancelled, TSH 0.29 L 01/31/22 04:09: Hemoglobin A1c 5.8 H 01/31/22 04:09: Free T4 1.40 01/31/22 11:31: POC Glucose 118 H 01/31/22 16:29: POC Glucose 124 H 01/31/22 20:57: POC Glucose 134 H 02/01/22 04:41: Sodium 138, Potassium 4.2, Chloride 106, Carbon Dioxide 28.0, Anion Gap 4 L, BUN 22 H, Creatinine 0.44 L, Estim Creat Clear Calc 32.73, Est GFR (MDRD) Af Amer 178, Est GFR (MDRD) Non-Af 148, BUN/Creatinine Ratio 49.8 H, Glucose 139 H, Calcium 8.7, Magnesium 1.9, Total Bilirubin 0.30, AST 32, ALT 29, Alkaline Phosphatase 83, Total Protein 6.2 L, Albumin 3.0 L, Globulin 3.2, Albumin/Globulin Ratio 0.9 02/01/22 04:41: WBC 13.6 H, RBC 4.42, Hgb 13.4, Hct 38.8, MCV 87.8, MCH 30.3, M CHC 34.5, RDW Std Deviation 41.7, RDW Coeff of Carter 13.0, Plt Count 346, MPV 9.0, Immature Gran % (Auto) 0.600, Neut % (Auto) 87.0 H, Lymph % (Auto) 6.6 L, [place] % (Auto) 5.6, Eos % (Auto) 0.1, Baso % (Auto) 0.1, Absolute Neuts (auto) 11.9 H, Absolute Lymphs (auto) 0.90, Nucleated RBC % 0 Radiography Diagnostic Testing: Radiology Impression Echocardiogram 01/31/22 03:08 Interpretation Summary The study was technically difficult. Contrast injection was performed. Moderate segmental systolic dysfunction (see wall motion). The estimated ejection fraction is 35 %. Anterior leaflet diffuse mitral valve thickening. Mild (1+) mitral valve insufficiency. Mild tricuspid valve insufficiency. Mild focal aortic valve thickening. Right ventricular systolic pressure estimated to be 36 mmHg. No evidence for diastolic dysfunction. Comment: Based upon the 2D echocardiographic images of the left ventricle would consider in the differential diagnosis possible Takotsubo syndrome. Ordering Physician: Osmar Stephenson Referring Physician: Vannesa Martin Performed By: Annie Garcia RDCS Physical Exam Const alert and no apparent distress General Appearance: cooperative Nutritional Appearance: thin HEENT normocephalic, head/scalp atraumatic and moist oral mucous membranes Eyes PERRL, EOMs intact bilaterally and conjunctivae normal Neck supple General: trachea midline Chest Chest Narrative: Increased AP diameter. Resp Resp Narrative: Prolonged expiratory phase. Auscultation: diminished lung sounds Cardio regular rate and regular rhythm GI normal to inspection, nondistended, normoactive bowel sounds Extremity no clubbing, cyanosis or edema Skin no rashes or lesions noted Neuro CN's II-XII intact bilaterally, moves all extremities and no focal motor deficits Psych cooperative and affect normal Charges/Coding Visit Charges Inpatient E&M: 08845 Subs Hosp L2
[2022-02-01 07:01] LABS: Bedside Glucose 149 mg/dL (74-106)
[2022-02-01] MEDS: Ipratropium/Albuterol Sulfate 3 ML AMPUL.NEB INHALATION (07:25)
[2022-02-01] MEDS: SACUBITRIL/VALSARTAN 24/26 MG TABLET 1 EACH PO (09:08)
[2022-02-01] MEDS: Aspirin 81 MG TAB.CHEW PO (09:08)
[2022-02-01] MEDS: Carvedilol 3.125 MG TABLET PO (09:08)
--- NOTE | 2022-02-01 09:20 | PN.CARD_ITS ---
Subjective Subjective The patient states she feels better this day. She is not complaining of any concerning chest discomfort. She has had no worsening shortness of breath or dyspnea. Objective Data Vital Signs: Vital Signs Temp Pulse Resp BP Pulse Ox 97.9 F 95 18 126/72 H 90 02/01/22 07:28 02/01/22 07:28 02/01/22 07:28 02/01/22 07:28 02/01/22 08:59 Oxygen Flow Rate (L/min) [ 4 AMBULATING with Oxygen #2] Oxygen Flow Rate (L/min) [ 2 AMBULATING with Oxygen #1] Oxygen Flow Rate (L/min) 2 Oxygen Delivery Method Nasal Cannula Weight: 92 lb 9.506 oz Body Mass Index (BMI) 17.3 Intake & Output: Intake and Output for Last 24 Hours 01/30/22 01/31/22 02/01/22 23:59 23:59 23:59 Intake Total 1309.41 / 1309.41 Balance 1309.41 / 1309.41 Lab / Micro Data Result Diagrams: 02/01/22 04:41 02/01/22 04:41 Labs: Laboratory Results - last 24 hr 01/31/22 04:09: Troponin I High Sens Cancelled, TSH 0.29 L 01/31/22 04:09: Free T4 1.40 01/31/22 11:31: POC Glucose 118 H 01/31/22 16:29: POC Glucose 124 H 01/31/22 20:57: POC Glucose 134 H 02/01/22 04:41: Sodium 138, Potassium 4.2, Chloride 106, Carbon Dioxide 28.0, Anion Gap 4 L, BUN 22 H, Creatinine 0.44 L, Estim Creat Clear Calc 32.73, Est GFR (MDRD) Af Amer 178, Est GFR (MDRD) Non-Af 148, BUN/Creatinine Ratio 49.8 H, Glucose 139 H, Calcium 8.7, Magnesium 1.9, Total Bilirubin 0.30, AST 32, ALT 29, Alkaline Phosphatase 83, Total Protein 6.2 L, Albumin 3.0 L, Globulin 3.2, Albumin/Globulin Ratio 0.9 02/01/22 04:41: WBC 13.6 H, RBC 4.42, Hgb 13.4, Hct 38.8, MCV 87.8, MCH 30.3, MCHC 34.5, RDW Std Deviation 41.7, RDW Coeff of Carter 13.0, Plt Count 346, MPV 9.0, Immature Gran % (Auto) 0.600, Neut % (Auto) 87.0 H, Lymph % (Auto) 6.6 L, [place] % (Auto) 5.6, Eos % (Auto) 0.1, Baso % (Auto) 0.1, Absolute Neuts (auto) 11.9 H, Absolute Lymphs (auto) 0.90, Nucleated RBC % 0 02/01/22 06:56: POC Glucose 149 H Cardiology Labs/Tests 02/01/22 04:41: Sodium 138, Potassium 4.2, Chloride 106, Carbon Dioxide 28.0, Anion Gap 4 L, BUN 22 H, Creatinine 0.44 L, Est GFR (MDRD) Af Amer 178, Est GFR (MDRD) Non-Af 148, BUN/Creatinine Ratio 49.8 H, Glucose 139 H, Calcium 8.7, Magnesium 1.9, Total Bilirubin 0.30 02/01/22 04:41: WBC 13.6 H, RBC 4.42, Hgb 13.4, Hct 38.8, MCV 87.8, MCH 30.3, MCHC 34.5, Plt Count 346, MPV 9.0, Immature Gran % (Auto) 0.600, Neut % (Auto) 87.0 H, Lymph % (Auto) 6.6 L, [place] % (Auto) 5.6, Eos % (Auto) 0.1, Baso % (Auto) 0.1, Absolute Neuts (auto) 11.9 H, Nucleated RBC % 0 Rhythm: Sinus rhythm Radiography Diagnostic Testing: Radiology Impression Echocardiogram 01/31/22 03:08 Interpretation Summary The study was technically difficult. Contrast injection was performed. Moderate segmental systolic dysfunction (see wall motion). The estimated ejection fraction is 35 %. Anterior leaflet diffuse mitral valve thickening. Mild (1+) mitral valve insufficiency. Mild tricuspid valve insufficiency. Mild focal aortic valve thickening. Right ventricular systolic pressure estimated to be 36 mmHg. No evidence for diastolic dysfunction. Comment: Based upon the 2D echocardiographic images of the left ventricle would consider in the differential diagnosis possible Takotsubo syndrome. Ordering Physician: Osmar Stephenson Referring Physician: Vannesa Martin Performed By: Annie Garcia RDCS Physical Exam Const alert, oriented x3 and no apparent distress Orientation / Consciousness: awake HEENT normocephalic, head/scalp atraumatic and hearing grossly normal bilaterally Eyes PERRL, EOMs intact bilaterally and conjunctivae normal Neck full ROM, supple and no JVD Resp Auscultation: diminished lung sounds Cardio regular rate, regular rhythm, S1 normal heart sound and S2 normal heart sound Extremity normal to inspection Peripheral Pulses: Yes radial pulses present right (No bruits: No hematoma) 2+ Skin no rashes or lesions noted Neuro oriented x3, moves all extremities, no focal motor deficits and no sensory deficits noted Psych mental status grossly normal Assessment & Plan Assessment/Plan (1) NSTEMI, initial episode of care: PLAN: The patient has findings compatible with an acute non-ST segment elevation [place]. She has undergone further evaluation with both transthoracic echocardiogram and diagnostic cardiac catheterization. Based upon the results she does not appear to have angiographically significant CAD to explain her symptoms and/or events. Her left ventricular wall motion systolic function appear potentially compatible with an underlying Takotsubo syndrome which may be secondary to her acute respiratory syndrome/hypoxemia. Thus at the present time she will continue medical therapy which is included the initiation of beta-blockers and afterload reducing agents. She will need continued future outpatient cardiovascular follow-up including outpatient echocardiographic studies to monitor her left ventricular wall motion and systolic function and LVEF-which hopefully will improve over time. (2) Acute and chronic respiratory failure with hypoxia: PLAN: The patient does have what appears to be acute on chronic respiratory failure and has been noted to have reports of hypoxemia. This may be secondary to her underlying COPD process. She has been evaluated by Dr. Olson of pulmonology/critical care medicine. She states she has elected to continue to follow with him (3) COPD exacerbation: PLAN: The patient has a history of COPD. She does not know the details of her COPD. She will continue evaluation and care per internal medicine and pulmonology. Addt'l Comments The patient's case was discussed and reviewed at length with the patient. This note was generated using a voice recognition system and there may be incorrect words, spelling or punctuation that were not noted when reviewing the office note prior to saving. Procedure Criteria Type of Procedure Procedure Type: Elective Elective Risks - COVID COVID Risk Discussion: The surgeon/proceduralist and patient have discussed in detail the risk of exposure to and/or potential harm posed by the COVID-19 virus with having a surgery/procedure at this time versus the risk of delaying the surgery/procedure. It is not possible to know either the risk of delaying the surgery or procedure or chance of getting an infection with perfect accuracy, but a joint decision was made between the patient and the surgeon/proceduralist to proceed at this time with the scheduled surgery/procedure as indicated on the consent form.
--- NOTE | 2022-02-01 10:16 | CASEMGMT ---
Per Daniela RN, pt qualifies for 4L w/ exertion and pt had stated no preference for [employer]. Order signed and faxed to [employer]. Pt to be provided with [employer] portable tank with instructions to call [employer] at discharge. Pt has been independent in room and states no further concerns with going home at discharge. Pt provided with pulse ox from [facility] with instructions by RN. Pt updated on home oxygen and voices no further questions/concerns/needs. SStaten PADDY CM
--- NOTE | 2022-02-01 10:52 | DCINST_ITS ---
Discharge Instructions Diet Discharge Diet: - (Cardiac low fat/low cholesterol diet in addition to ADA 1800 given new onset prediabetes.) Activity Discharge Activity: - (Encourage mild activity until re-evaluation per Pulmonary given oxygen usage, COPD exacerbation.) May resume sexual activity in: 10-14 days Weight Bearing Status: Weight bearing as tolerated Dressing / Incision Call your doctor if your incision/area has: Continuous Slow Oozing, Sudden Increased Bleeding, Increased Pain/ Swelling, Increased Redness, Foul Smelling Discharge and Swelling at the incision site Call your doctor if you observe: Fever of 101 or Higher, Numbness or Tingling, Shortness of breath, Dizziness, Swelling in the ankles, Chest pain, Increased palpitations (irregular heartbeat) and Uncontrolled pain Follow Up Care Test Results: Test results from this visit will be discussed in further detail at your follow-up appointment, if applicable. Discharge Plan Admission Admit Date/Time: 01/31/22 02:41 Primary Reason for Your Visit: Hypoxia, COPD Exacerbation, NSTEMI, Prediabetes Attending Provider: Miriam Velázquez Primary Care Provider: Vannesa Martin Consulting Providers: Oliver Silverio ; Delon Heredia ; Shiva Olson ; Osiris Vanegas [employer] TECHNICIAN Instructions Patient Instructions: Prediabetes, Understanding Oxygen Therapy, Healthy Meals for Diabetes, Understanding Carbohydrates, Eating Out When You Have Diabetes, What Is COPD?, Using a Nebulizer (Adult), Heart Attack Meds, Heart Attack: Back at Home Additional Instructions / Restrictions: FOLLOW-UP/ADMISSION EVALUATION: #1. Oxygen needs with Acute COPD Exacerbation: Please continue to use your supplemental oxygen until it is appropriate evaluated and potentially weaned per Pulmonary medicine. Please complete the steroid taper and if you notice upon completion recurrent shortness of breath please immediately notify the Pulmonary office. #2. Acute Heart Attack secondary to demand from oxygen needs from #1: Your h eart catheterization demonstrated no severe findings therefore no stents were required but cardiology recommended medical management. This regimen will include: aspirin, statin, low-dose Coreg as well as low-dose Entresto per cardiology. Please contact Cardiology office if you notice any routine low or high blood pressures. Cardiology will arrange another future echocardiogram potentially in 6-8 weeks but this can be reviewed at your follow-up. #3. Hyperglycemia with new diagnosis prediabetes: Your HgbA1c was 5.8% which is consistent with prediabetes. Please continue to attempt to reduce this with diet alterations, specifically with the recommended Cardiac/ADA 1800 regimen. #4. Abnormal TSH: Your thyroid function, specifically your TSH was 0.29 which is mildly decreased; however, your free T4 was obtained and noted to be normal 1.40. We consider this subclinical with recommendation for repeat studies given current acute presentation with PCP at follow-up in 6 weeks. Discharge Orders/Prescriptions Prescriptions: New atorvastatin 40 mg Tablet 40 mg PO QHS 30 Days Qty: 30 RF: 1 carvedilol 3.125 mg Tablet 3.125 mg PO BID 30 Days Qty: 60 RF: 1 aspirin 81 mg Tablet,Chewable 81 mg PO BREAKFAST 30 Days Qty: 30 RF: 1 Entresto 24-26 mg Tablet 1 ea PO BID 30 Days Qty: 60 RF: 1 albuterol sulfate 2.5 mg /3 mL (0.083 %) Solution For Nebulization 2.5 mg inhalation Q2H PRN PRN (Reason: Dyspnea, wheezing) 30 Days Qty: 180 RF: 0 Continued ipratropium-albuterol 0.5 mg-3 mg(2.5 mg base)/3 mL solution for nebulization 3 ml inhalation Q6H PRN (Reason: sob) RF: 0 albuterol sulfate 90 mcg/actuation HFA aerosol inhaler 2 puff INHALATION Q4H PRN (Reason: sob) RF: 0 Multi Complete with Iron 18-400 mg-mcg Tablet 1 tab PO DAILY RF: 0 omega [id number]-fish oil 120-180-500 mg Capsule 2 cap PO DAILY RF: 0 Trelegy Ellipta 100-62.5-25 mcg blister with device 1 ea INHALATION DAILY RF: 0 Referrals / Follow Up: Vannesa Martin MD [Primary Care Provider] - (Follow-up within 3-5 days to review admission.) Shiva Olson DO [STAFF PHYSICIAN] - 02/16/22 9:45 am (Follow-up in 2 weeks, may see [employer]OADBAND TECHNICIAN.) Oliver Silverio MD [STAFF PHYSICIAN] - (Follow-up per Cardiology discretion, may see [employer]AD[employer]AND TECHNICIAN. ) Disposition Disposition (needs filled in before D/C Order can be placed): Home, Self Care
--- NOTE | 2022-02-01 11:04 | PCM.DC.SUM ---
Providers Date of Admission: 01/31/22 Primary Care Physician: Dr. Vannesa Martin MD Consultations 01/31/22 03:08 Consult: Cardiology Routine Consulting Provider: Oliver Silverio Reason for Consult: eval NSTEMI EMERGENT Consult: No Notified: Yes Date Notified: 01/31/22 Time Notified: 06:54 Method of Notification: Text 01/31/22 10:05 Consult: Marketing Communication Manager / Pulmonary Medicine Routine Consulting Provider: Pulmonary Medicine [facility] Reason for Consult: Elevated troponis w/ negative heart cath. EMERGENT Consult: No Notified: Yes Date Notified: 01/31/22 Time Notified: 10:05 Method of Notification: Provider Initiated Reason For Visit: NSTEMI, COPD, HYPOXIA Diagnosis Discharge Diagnosis (1) NSTEMI, initial episode of care: Status: Acute Code(s): I21.4 - Non-ST elevation (NSTEMI) myocardial infarction (2) Acute and chronic respiratory failure with hypoxia: Status: Chronic Code(s): J96.21 - Acute and chronic respiratory failure with hypoxia (3) COPD exacerbation: Status: Chronic Code(s): J44.1 - Chronic obstructive pulmonary disease with (acute) exacerbation Medications at Discharge Home Medications Multi Complete with Iron 1 tab PO DAILY 01/31/22 Trelegy Ellipta 1 ea INHALATION DAILY 01/31/22 albuterol sulfate 2 puff INHALATION Q4H PRN 01/31/22 ipratropium-albuterol 3 ml INHALATION Q6H PRN 01/31/22 omega 4-rwc-jio-fish oil 2 cap PO DAILY 01/31/22 albuterol sulfate 2.5 mg INHALATION Q2H PRN PRN 30 Days #180 ml 02/01/22 aspirin 81 mg PO BREAKFAST 30 Days #30 tab 02/01/22 atorvastatin 40 mg PO QHS 30 Days #30 tab 02/01/22 carvedilol 3.125 mg PO BID 30 Days #60 tab 02/01/22 prednisone 40 mg PO DAILY 5 Days #10 tab 02/01/22 sacubitril-valsartan [Entresto] 1 ea PO BID 30 Days #60 tab 02/01/22 Hospital Course Operations None Procedures 2-D Echocardiogram, Cardiac catheterization and EKG Summary of Care Provided Minutes Spent on Discharge: 35 Hospital Course: Discharge Diagnoses: #1. Acute Hypoxia secondary to Acute on Chronic COPD #2. Acute NSTEMI suspected secondary to type II demand secondary to #1, possible Takotsubo cardiomyopathy #3. Hyperglycemia with new diagnosis prediabetes #4. Abnormal TSH (TSH 0.29, free T4 normal 1.40) subclinical #5. Severe protein calorie malnutrition (evidence for reduced BMI, obvious muscle and fat loss) #6. Tobacco Abuse Discharge Summary: The patient is a 76 y/o F w/ PMHx: COPD, Tobacco use who presented to the [facility] ED on 01/31/22 w/ history of dyspnea sensation with hypoxia upon ED evaluation to be 88% with incidentally noted elevated troponin. Admitted to PCU given #2, maintained on oxygen with wean as tolerated to 2L NC with oxygenation assessment with noted 90% on room air at rest, 86% ambulating on room air, 92% on 4 L nasal cannula therefore upon discharge patient required 2 to 4 L which was set up, continued ATC duonebs, PRN albuterol, IV methylprednisolone while inpatient with transition to prednisone 40 mg burst x5 days per pulmonary request, HOB, IS parameters. Pulmonary did evaluate the patient and recommended steroids, continued home inhaler treatments and planned early follow-up with her office. Additionally EKG in ED w/ SR with no acute evidence of ischemia, CXR w/ chronic changes, Trop elevated, 1573. Will maintain on a monitored bed, magnesium level level normal, on heparin drip upon presentation prior to catheterization which demonstrated no marked CAD findings on cardiac catheterization with suspicion secondary to #1, ECHO obtained with EF 35%, mild MVI, mild TVI, RVSP 36 millimercury, no evidence of diastolic dysfunction, patient with continued medical management with aspirin, statin, low-dose Coreg as well as low-dose Entresto per cardiology. Also noted during admission hyperglycemia with hemoglobin A1c obtained and noted to be 5.8% consistent with prediabetes with education initiated as well as diet alteration in lifestyle recommendations. Also during mission TSH noted to be 0.29 however free T4 was normal thus subclinical with recommended follow-up repeat outpatient with PCP given acute presentation. Patient clinically improved and dyspnea subsided with treatments as noted therefore patient discharged to home with continued oxygen supplementation with regimen changes per cardiology as well as steroids with follow-up with PCP, cardiology and pulmonary medicine. Discharge Time: > 35 Minutes DAY OF DISCHARGE PROGRESS NOTE: Subjective: Patient without acute event overnight per self and nursing report. Patient notes feeling significantly improved since initial ED presentation and notes her shortness of breath has abated on the oxygen. She notes if she is attempts to ambulate without the oxygen in the room she does feel dyspnea onset again. Patient denies fever, chills, nausea, emesis, abdominal pain, chest pain. Patient agreeable to discharge to home with continued oxygen supplementation as well as new regimen. Patient will be discharged with follow-up with primary care physician within 3-5 days in addition to follow-up with cardiology and pulmonary medicine. Objective: T 97.9, heart rate 95, BP 126/72, respiratory rate 18, 94% on 2 L nasal cannula. Physical Examination: General: awake, alert, oriented x 3 and cooperative, seated upright in PCU bed, no acute distress, notes dyspnea has resolved. Skin: normal color, turgor, no icterus, cyanosis. HEENT: AT/NC, EOMI, PERRLA, MMM. Lungs: Diffusely diminished, poor air movement, effort improved no current rales, rhonchi or wheezing. Heart: Currently regular rate and rhythm; no gallop, rub audible. Abdomen: soft, thin cachectic habitus, NTTP, ND, normal BS. Extremities: no cyanosis, clubbing, or edema. Neurological: patient awake, alert, oriented as noted; cognitive function intact; pupils equally reactive to light and accomodation; cranial nerves II-XII grossly normal, moving all 4 extremities, no focal deficits, strength improved, moderately global decrease secondary to acute presentation Psychiatric: affect appears more interactive, smiling, no acute evidence of depressive or anxiety feelings. Assessment and Plan: Please see hospital summary above. Medical Records Data Medical Nutrition Assessment Dietitian: Malnutrition Criteria Met Start: 01/31/22 15:34 Freq: Status: Active Protocol: Document 01/31/22 15:34 AG (Rec: 01/31/22 15:34 AG [id number]) Nutrition Malnutrition Evidence of Malnutrition Exists Yes Malnutrition (severe): Chronic Evidenced By Suboptimal Energy Intake ( Severe),Weight Loss (Severe), Physical Changes (Severe) Clinical Problem Chronic Disease or Condition Related Malnutrition Etiology severe, chronic malnutrition r /t inadequate energy intake w/ increased energy needs d/t COPD Signs/Symptoms as evidenced by estimated PO intake meeting <75% of estimated energy needs > 3 months; unintentional wt loss of 23.3#/20% x 1 year; severe cachexia- muscle wasting/fat loss evident in temples, clavicle, orbital, upper extremities; BMI 17.3 Status Active Problem Recommendation Dietitian Recommendations/Changes given severe malnutrition, will change diet to regular; will add ensure enlive 120mL 4x/day w/medpass and magic cup w/ dinner for additional calories/protein if consumed. Weight / BMI Weight Weight: 92 lb 9.506 oz Body Mass Index (BMI) 17.3 ABG / Lab / Microbiology Data Result Diagrams: 02/01/22 04:41 02/01/22 04:41 Laboratory: Laboratory Results - last 24 hr 01/31/22 04:09: Free T4 1.40 01/31/22 11:31: POC Glucose 118 H 01/31/22 16:29: POC Glucose 124 H 01/31/22 20:57: POC Glucose 134 H 02/01/22 04:41: Sodium 138, Potassium 4.2, Chloride 106, Carbon Dioxide 28.0, Anion Gap 4 L, BUN 22 H, Creatinine 0.44 L, Estim Creat Clear Calc 32.73, Est GFR (MDRD) Af Amer 178, Est GFR (MDRD) Non-Af 148, BUN/Creatinine Ratio 49.8 H, Glucose 139 H, Calcium 8.7, Magnesium 1.9, Total Bilirubin 0.30, AST 32, ALT 29, Alkaline Phosphatase 83, Total Protein 6.2 L, Albumin 3.0 L, Globulin 3.2, Albumin/Globulin Ratio 0.9 02/01/22 04:41: WBC 13.6 H, RBC 4.42, Hgb 13.4, Hct 38.8, MCV 87.8, MCH 30.3, MCHC 34.5, RDW Std Deviation 41.7, RDW Coeff of Carter 13.0, Plt Count 346, MPV 9.0, Immature Gran % (Auto) 0.600, Neut % (Auto) 87.0 H, Lymph % (Auto) 6.6 L, Slope % (Auto) 5.6, Eos % (Auto) 0.1, Baso % (Auto) 0.1, Absolute Neuts (auto) 11.9 H, Absolute Lymphs (auto) 0.90, Nucleated RBC % 0 02/01/22 06:56: POC Glucose 149 H Radiography Diagnostic Testing: Radiology Impression Echocardiogram 01/31/22 03:08 Interpretation Summary The study was technically difficult. Contrast injection was performed. Moderate segmental systolic dysfunction (see wall motion). The estimated ejection fraction is 35 %. Anterior leaflet diffuse mitral valve thickening. Mild (1+) mitral valve insufficiency. Mild tricuspid valve insufficiency. Mild focal aortic valve thickening. Right ventricular systolic pressure estimated to be 36 mmHg. No evidence for diastolic dysfunction. Comment: Based upon the 2D echocardiographic images of the left ventricle would consider in the differential diagnosis possible Takotsubo syndrome. Ordering Physician: Osmar Stephenson Referring Physician: Vannesa Martin Performed By: Annie Garcia RDCS D/C Instructions Discharge Diet: - (Cardiac low fat/low cholesterol diet in addition to ADA 1800 given new onset prediabetes.) May resume sexual activity in: 10-14 days Weight Bearing Status: Weight bearing as tolerated Call your doctor if your incision/area has: Continuous Slow Oozing, Sudden Increased Bleeding, Increased Pain/ Swelling, Increased Redness, Foul Smelling Discharge and Swelling at the incision site Call your doctor if you observe: Fever of 101 or Higher, Numbness or Tingling, Shortness of breath, Dizziness, Swelling in the ankles, Chest pain, Increased palpitations (irregular heartbeat) and Uncontrolled pain Meaningful Use Info Meaningful Use Diagnoses (Choose all that apply): AMI AMI/Post PCI/Angioplasty Aspirin given w/in 24hrs of arrival?: Yes ASA at discharge?: Yes Statins at discharge?: Yes Mc/ARB at discharge?: Yes Beta Marisel at discharge?: Yes Done w/ Acute RI measure.: Yes Documented LVEF (%): 35 Discharge Plan Admission Admit Date/Time: 01/31/22 02:41 Primary Reason for Your Visit: Hypoxia, COPD Exacerbation, NSTEMI, Prediabetes Attending Provider: Miriam Velázquez Primary Care Provider: Vannesa Martin Consulting Providers: Oliver Silverio ; Delon Heredia ; Shiva Olson ; Osiris Vanegas HOSPITALIST NOCTURNIST PHYSICIAN Instructions Patient Instructions: Prediabetes, Understanding Oxygen Therapy, Healthy Meals for Diabetes, Understanding Carbohydrates, Eating Out When You Have Diabetes, What Is COPD?, Using a Nebulizer (Adult), Heart Attack Meds, Heart Attack: Back at Home Additional Instructions / Restrictions: FOLLOW-UP/ADMISSION EVALUATION: #1. Oxygen needs with Acute COPD Exacerbation: Please continue to use your supplemental oxygen until it is appropriate evaluated and potentially weaned per Pulmonary medicine. Please complete the steroid taper (per pulmonary 40 mg prednisone x 5 days) and if you notice upon completion recurrent shortness of breath please immediately notify the Pulmonary office. #2. Acute Heart Attack secondary to demand from oxygen needs from #1: Your heart catheterization demonstrated no severe findings therefore no stents were required but cardiology recommended medical management. This regimen will include: aspirin, statin, low-dose Coreg as well as low-dose Entresto per cardiology. Please contact Cardiology office if you notice any routine low or high blood pressures. Cardiology will arrange another future echocardiogram potentially in 6-8 weeks but this can be reviewed at your follow-up. #3. Hyperglycemia with new diagnosis prediabetes: Your HgbA1c was 5.8% which is consistent with prediabetes. Please continue to attempt to reduce this with diet alterations, specifically with the recommended Cardiac/ADA 1800 regimen. #4. Abnormal TSH: Your thyroid function, specifically your TSH was 0.29 which is mildly decreased; however, your free T4 was obtained and noted to be normal 1.40. We consider this subclinical with recommendation for repeat studies given current acute presentation with PCP at follow-up in 6 weeks. Discharge Orders/Prescriptions Prescriptions: New atorvastatin 40 mg Tablet 40 mg PO QHS 30 Days Qty: 30 RF: 1 carvedilol 3.125 mg Tablet 3.125 mg PO BID 30 Days Qty: 60 RF: 1 aspirin 81 mg Tablet,Chewable 81 mg PO BREAKFAST 30 Days Qty: 30 RF: 1 Entresto 24-26 mg Tablet 1 ea PO BID 30 Days Qty: 60 RF: 1 albuterol sulfate 2.5 mg /3 mL (0.083 %) Solution For Nebulization 2.5 mg inhalation Q2H PRN PRN (Reason: Dyspnea, wheezing) 30 Days Qty: 180 RF: 0 prednisone 20 mg tablet 40 mg PO DAILY 5 Days Qty: 10 RF: 0 Continued ipratropium-albuterol 0.5 mg-3 mg(2.5 mg base)/3 mL solution for nebulization 3 ml inhalation Q6H PRN (Reason: sob) RF: 0 albuterol sulfate 90 mcg/actuation HFA aerosol inhaler 2 puff INHALATION Q4H PRN (Reason: sob) RF: 0 Multi Complete with Iron 18-400 mg-mcg Tablet 1 tab PO DAILY RF: 0 omega 4-xmg-dzd-fish oil 120-180-500 mg Capsule 2 cap PO DAILY RF: 0 Trelegy Ellipta 100-62.5-25 mcg blister with device 1 ea INHALATION DAILY RF: 0 Referrals / Follow Up: Vannesa Martin MD [Primary Care Provider] - (Follow-up within 3-5 days to review admission.) Shiva Olson DO [STAFF PHYSICIAN] - 02/16/22 9:45 am (Follow-up in 2 weeks, may see HOSPITALIST NOCTURNIST PHYSICIAN.) Oliver Silverio MD [STAFF PHYSICIAN] - (Follow-up per Cardiology discretion, may see HOSPITALIST NOCTURNIST PHYSICIAN. ) Disposition Disposition (needs filled in before D/C Order can be placed): Home, Self Care Charges/Coding Visit Charges Inpatient E&M: 28688 Disch Hosp
== END 2022-02-01 14:46 | disposition home or self-care (01) | DRG 190 ==
PROVIDERS: Admitting Provider Hospitalist; PCP Internal Medicine; Visit Provider Family Medicine
DX: J44.1 Chronic obstructive pulmonary disease with (acute) exacerbation (principal); E43 Unspecified severe protein-calorie malnutrition; I21.A1 Myocardial infarction type 2; I51.81 Takotsubo syndrome; Z68.1 Body mass index [BMI] 19.9 or less, adult; Z79.4 Long term (current) use of insulin; F17.210 Nicotine dependence, cigarettes, uncomplicated; E78.5 Hyperlipidemia, unspecified; Z66 Do not resuscitate; Z71.6 Tobacco abuse counseling; Z87.442 Personal history of urinary calculi; Z79.899 Other long term (current) drug therapy; R73.03 Prediabetes; R94.6 Abnormal results of thyroid function studies; R09.02 Hypoxemia
CPT/HCPCS: 36415; 80048; 80053; 80061; 82962; 83036; 83735; 84439; 84443; 84484; 85025; 85730; 93005; 93306; 93458; 94640; 97802; 99152; 99153; 99251; J7030; Q9957; A4216; C1769; C1894; C8929; G0463; Q9967

== ENCOUNTER 2022-02-14 13:42 | Outpatient (CLI) | payer MEDICARE, SELFPAY ==
--- NOTE | 2022-02-14 13:48 | ECHOL_ITS ---
Reason For Study: CAD/ASHD Procedure This was a limited 2D transthoracic echocardiogram. Limited views were obtained. Exam performed in department. Left Ventricle Normal LV size. Left ventricular systolic function is normal. The estimated ejection fraction is 60 %. Unable to assess diastolic dysfunction. No regional wall motion abnormalities noted. Right Ventricle Normal RV size. Normal systolic function. Atria Normal left atrium. Normal right atrium. Mitral Valve There is no mitral annular calcification. Anterior leaflet diffuse mitral valve thickening. Tricuspid Valve Normal tricuspid valve. Aortic Valve Trisinus/trileaflet aortic valve. Normal aortic valve. Pulmonic Valve The pulmonic valve is not well visualized. Pericardium/Pleural No pericardial effusion. MMode/2D Measurements & Calculations LVIDd: 3.5 cm IVSd: 0.89 cm LVAd ap4: 21.2 cm2 LVIDs: 2.5 cm LVPWd: 0.96 cm LVLd ap4: 7.1 cm FS: 27.9 % EDV(MOD-sp4): 53.1 ml EDV(sp4-el): 53.8 ml LVAs ap4: 12.4 cm2 LVLs ap4: 5.6 cm ESV(MOD-sp4): 23.3 ml ESV(sp4-el): 23.4 ml EF(MOD-sp4): 56.0 % EF(sp4-el): 56.5 % SV(MOD-sp4): 29.8 ml SV(MOD-sp2): 24.7 ml LVAd ap2: 18.4 cm2 LVLd ap2: 6.6 cm EDV(MOD-sp2): 43.8 ml EDV(sp2-el): 43.4 ml LVAs ap2: 10.0 cm2 LVLs ap2: 6.1 cm ESV(MOD-sp2): 19.2 ml ESV(sp2-el): 13.8 ml EF(MOD-sp2): 56.3 % SV(sp4-el): 30.4 ml ECHO/Echo, Limited Study Interpretation Summary Limited views were obtained. Left ventricular systolic function is normal. The estimated ejection fraction is 60 %. Anterior leaflet diffuse mitral valve thickening. Unable to assess diastolic dysfunction. Ordering Physician: Oliver Silverio Referring Physician: Oliver Silverio Performed By: DANG
== END 2022-02-14 23:59 | disposition home or self-care (01) ==
LOC: CVS 13:46
PROVIDERS: PCP Internal Medicine; Referring Provider Internal Medicine Cardiovascular Disease; Visit Provider Internal Medicine Cardiovascular Disease
DX: I25.10 Atherosclerotic heart disease of native coronary artery without angina pectoris (principal)
CPT/HCPCS: 93308

== ENCOUNTER → 2022-04-05 | Outpatient (CLI) | payer MEDICARE, SELFPAY ==
[2022-04-05 14:19] VITALS: PULSE 101; PULSE 103; PULSE 105; PULSE 106; PULSE 108; PULSE 85; PULSE 91; O2SAT 91; O2SAT 93; O2SAT 94; O2SAT 96
--- NOTE | 2022-04-05 15:30 | WT_ITS ---
PSN 6 Minute Walk Test 6 Minute Walk Test 6 Minute Walk Test: 6 Minute Walk Test PSN:6-Minute Walk Test Start: 04/05/22 14:19 Freq: Status: Active Protocol: RESP.6MINW Document 04/05/22 14:19 DAIN (Rec: 04/05/22 14:21 DAIN [id number]) 6 Minute Walk Test Date Performed 04/05/22 Time Performed 14:00 Height 5 ft Weight: 43.091 kg Weight in Pounds 95.[address]: Osiris Vanegas TELEPHONE DIRECTORY DISTRIBUTOR DRIVER Assistive device used: None Pre-test Oxygen Delivery Method Room Air Pulse Ox (%) 94 Pulse Rate (60-100 beats/min) 91 Dyspnea Primitivo Scale (0-10) 0.5 Exertion Primitivo Scale (6-20) 6 1st minute Oxygen Delivery Method Room Air Pulse Ox (%) 94 Pulse Rate (60-100 beats/min) 101 H 2nd minute Oxygen Delivery Method Room Air Pulse Ox (%) 93 Pulse Rate (60-100 beats/min) 103 H 3rd minute Oxygen Delivery Method Room Air Pulse Ox (%) 91 Pulse Rate (60-100 beats/min) 105 H 4th minute Oxygen Delivery Method Room Air Pulse Ox (%) 91 Pulse Rate (60-100 beats/min) 106 H 5th minute Oxygen Delivery Method Room Air Pulse Ox (%) 91 Pulse Rate (60-100 beats/min) 105 H 6th minute Oxygen Delivery Method Room Air Pulse Ox (%) 91 Pulse Rate (60-100 beats/min) 108 H Dyspnea Primitivo Scale (0-10) 3 Exertion Primitivo Scale (6-20) 12 Post-test Oxygen Delivery Method Room Air Pulse Ox (%) 96 Pulse Rate (60-100 beats/min) 85 Full Laps Walked 19 Partial Lap, Number of Tiles Walked 0 Total Distance Walked (ft) 1121 Interpretation Interpretation: The patient was able to ambulate 1121 feet over the course of 6 minutes on room air with no assistive devices or breaks. The patient did have significant desaturation from baseline of 94% to as low as 91% with an element of reflexive tachycardia. These findings are consistent with a respiratory limitation exercise tolerance. Recommendations Recommendations: No supplemental oxygen is indicated at this time. However, patient will need to be followed closely given level of desaturation.
== END | disposition home or self-care (01) ==
LOC: PSN 14:01
PROVIDERS: PCP Internal Medicine; Referring Provider Nurse Practitioner Acute Care; Visit Provider Nurse Practitioner Acute Care
DX: J44.9 Chronic obstructive pulmonary disease, unspecified (principal)
CPT/HCPCS: 94618

== ENCOUNTER → 2022-04-06 | Outpatient (CLI) | payer MEDICARE, SELFPAY ==
--- NOTE | 2022-04-06 14:34 | PFTCOMP_ITS ---
COMPLETE PULMONARY FUNCTION TEST INTERPRETATION Brief HPI: Patient is a 76-year-old female, currently under the care of Osiris Vanegas, who presents to [facility] for complete pulmonary function tests secondary to diagnosis of COPD. Respiratory therapist reports good effort and reproducible results. Interpretation: Forced expiration spirometry shows a severe large airways obstructive ventilatory defect with an FEV1 of 48% predicted. There is no significant bronchodilator response by strict ATS criteria. Spirograms are of good quality and plateau slowly, indicating slowly emptying areas of the lungs. The respiratory flow volume loop shows decreased expiratory flow rates at all lung volumes consistent with airway obstruction. Lung volumes by body plethysmography show an elevated total lung capacity at 7.08 L, 178% predicted. FRC and RV are elevated out of proportion. Lung volume measurements are consistent with hyperinflation and air-trapping. Diffusion capacity by carbon monoxide is decreased at 43% predicted. The airway resistance is elevated. No previous pulmonary function tests were available for review. Impression: Irreversible severe large airways obstructive ventilatory defect, resulting in air trapping with hyperinflation, and a symmetric reduction diffusion capacity, consistent with patient's diagnosis of COPD.
== END | disposition home or self-care (01) ==
LOC: PSN 06:39
PROVIDERS: PCP Internal Medicine; Referring Provider Nurse Practitioner Acute Care; Visit Provider Nurse Practitioner Acute Care
DX: J44.9 Chronic obstructive pulmonary disease, unspecified (principal)
CPT/HCPCS: 94060; 94726; 94729

== ENCOUNTER → 2023-02-01 | Outpatient (CLI) | payer MEDICARE, SELFPAY ==
--- NOTE | 2023-02-01 07:36 | CT_ITS ---
STUDY: LOW DOSE CT LUNG CANCER SCREENING REASON FOR EXAM: Female, 77 years old. Patient smoked 1 pack per day for 40 years. RADIATION DOSAGE (If Supplied By Facility): CTDIvol = ( 2.01 ) mGy, DLP = ( 69.47 ) mGycm TECHNIQUE: No contrast was administered. Low dose technique was utilized (average mAS-38 and kVp 120). 1.25 mm axial source images with a slice interval of 1.25-mm were reconstructed in lung windows. 2.5 mm axial source images with a slice interval of 2.5-mm were reconstructed in lung windows. 5.0 mm axial source images with a slice interval of 5.0-mm were reconstructed in soft tissue windows. COMPARISON: None. NODULES: No suspicious nodules are seen. Emphysema: Hyperinflation. Diffuse emphysematous changes with centrilobular emphysema worse in the upper lobes. There is evidence of scarring in the posterior right lung apex with a multiple small bullous formation and bronchiectasis. There is also evidence of a scarring and bronchiectasis in the posterior aspect of the right upper lobe. There is also evidence of a left apical scarring posteriorly with bronchiectasis. Endobronchial lesion: None Aorta: Atherosclerotic plaque formation of the aortic arch CORONARY ARTERIES: Coronary artery calcification is seen. Heart: Unremarkable. Pulmonary artery: Prominent pulmonary arteries. Mediastinal nodes: Calcified right hilar lymph nodes. Other chest and abdominal findings: CT/Low Dose CT Lung Screening IMPRESSION: Lung-RADS category 2 - Continue annual screening with LDCT in 12 months. IMPORTANT NOTES FOR USE: ACR Lung-RADS Version 1.1 Assessment Categories Release Date: 2018 Category: Coded 0-4 bases on nodule(s) with highest degree of suspicion. Negative screen is defined as categories 1 and 2; a positive screen is defined as categories 3 and 4. Category 3 and 4A nodules that are unchanged on interval CT should be coded as category 2, and individuals returned to screening in 12 months. Category 4X: Category 3 or 4 nodules with additional imaging findings that increase the suspicion of lung cancer, such as spiculation, GGN that doubles in size in 1 year, enlarged lymph notes, etc. Category Modifiers: S (significant finding unrelated to lung cancer) Electronically Signed: Ron Lassiter MD at 9:58 EDT ,
--- NOTE | 2023-02-02 07:30 | PFT ---
INTRODUCTION: The patient is a 77-year-old female that presents for pulmonary function studies secondary to a diagnosis of COPD. Respiratory therapy reported good patient effort. Bronchodilators were used during testing. INTERPRETATION: Forced expiration spirometry demonstrates the presence of a severe large airways obstructive ventilatory defect. There was no significant response to aerosolized bronchodilators. Spirograms are of fair quality but do not plateau indicating slow emptying of the lungs. Body plethysmography was performed and revealed an elevated TLC and RV, indicative of underlying hyperinflation and air trapping. Diffusing capacity by single breath CO was reduced to 54% of predicted. IMPRESSION: Irreversible severe large airways obstructive ventilatory defect with associated hyperinflation, air trapping and symmetric reduction in diffusing capacity.
== END | disposition home or self-care (01) ==
LOC: CT 07:35
PROVIDERS: PCP Internal Medicine; Referring Provider Nurse Practitioner Acute Care; Visit Provider Nurse Practitioner Acute Care
DX: J44.9 Chronic obstructive pulmonary disease, unspecified (principal); F17.210 Nicotine dependence, cigarettes, uncomplicated
CPT/HCPCS: 71271; 94060; 94726; 94729

== ENCOUNTER → 2023-04-25 | Outpatient (CLI) | payer MEDICARE, SELFPAY ==
[2023-04-25 12:35] VITALS: PULSE 100; PULSE 101; PULSE 104; PULSE 87; PULSE 89; PULSE 94; PULSE 96; O2SAT 87; O2SAT 90; O2SAT 92; O2SAT 95; O2SAT 97; O2SAT 98
--- NOTE | 2023-04-29 07:13 | PCM.PSN.6M ---
PSN 6 Minute Walk Test 6 Minute Walk Test 6 Minute Walk Test: 6 Minute Walk Test PSN:6-Minute Walk Test Start: 04/25/23 12:35 Freq: Status: Discharge Protocol: [id number] Document 04/25/23 12:35 ANGIEFLAKITO (Rec: 04/25/23 12:37 ZENONCHAPARROFLAKITO [id number]) 6 Minute Walk Test Date Performed 04/25/23 Time Performed 12:20 Height 5 ft Weight: 95 lb Weight in Pounds 95.[address]: Shiva Olson Assistive device used: None Pre-test Oxygen Delivery Method Room Air Pulse Ox (%) 92 Pulse Rate (60-100 beats/min) 87 Dyspnea Primitivo Scale (0-10) 0 Exertion Primitivo Scale (6-20) 6 1st minute Oxygen Delivery Method Room Air Pulse Ox (%) 90 Pulse Rate (60-100 beats/min) 101 H 2nd minute Oxygen Delivery Method Room Air Pulse Ox (%) 90 Pulse Rate (60-100 beats/min) 100 3rd minute Oxygen Delivery Method Room Air Pulse Ox (%) 87 Pulse Rate (60-100 beats/min) 94 Dyspnea Primitivo Scale (0-10) 4 Number of Rests Taken 1 4th minute Oxygen Flow Rate (L/min) (L/min) 2 Oxygen Delivery Method Nasal Cannula Pulse Ox (%) 95 Pulse Rate (60-100 beats/min) 89 5th minute Oxygen Flow Rate (L/min) (L/min) 2 Oxygen Delivery Method Nasal Cannula Pulse Ox (%) 95 Pulse Rate (60-100 beats/min) 94 6th minute Oxygen Flow Rate (L/min) (L/min) 2 Oxygen Delivery Method Nasal Cannula Pulse Ox (%) 97 Pulse Rate (60-100 beats/min) 104 H Dyspnea Primitivo Scale (0-10) 4 Exertion Primitivo Scale (6-20) 13 Post-test Oxygen Flow Rate (L/min) (L/min) 2 Oxygen Delivery Method Nasal Cannula Pulse Ox (%) 98 Pulse Rate (60-100 beats/min) 96 Full Laps Walked 18 Partial Lap, Number of Tiles Walked 20 Total Distance Walked (ft) 1082 Interpretation Interpretation: The patient ambulated 1082 feet over the course of 6 minutes beginning on room air without assistive devices. Pretesting oxygen saturation was noted to be 92% on room air. With ambulation, the jack oxygen saturation was 87%. 2 L/min of supplemental oxygen was applied and the patient was able to complete the remainder of the test while maintaining appropriate oxygen saturations. Recommendations Recommendations: 2 L/min of supplemental oxygen should be utilized with exertion.
== END | disposition home or self-care (01) ==
LOC: PSN 11:59
PROVIDERS: PCP Family Medicine; Referring Provider Internal Medicine Critical Care Medicine; Visit Provider Internal Medicine Critical Care Medicine
DX: J44.9 Chronic obstructive pulmonary disease, unspecified (principal); F17.210 Nicotine dependence, cigarettes, uncomplicated
CPT/HCPCS: 94618

== ENCOUNTER 2023-10-11 06:12 | Emergency (ER) | payer MEDICARE, SELFPAY ==
[2023-10-11] VITALS (8 sets, daily range): BP systolic 98–142; BP diastolic 72–98; PULSE 103–116; RESP 18–29; TEMP 36.5–36.8; O2SAT 87–94; BMI 16.7
--- NOTE | 2023-10-11 06:31 | EKG12_ITS ---
Test Reason : SOB Blood Pressure : / mmHG Vent. Rate : 099 BPM Atrial Rate : 099 BPM P-R Int : 116 ms QRS Dur : 084 ms QT Int : 338 ms P-R-T Axes : 081 031 075 degrees QTc Int : 433 ms Normal sinus rhythm Nonspecific ST and T wave abnormality Abnormal ECG Confirmed by COREY MOSER, ARIN ([id number]), editor school photograph AZIZA CHOWDARY ([id number]) on 10/14/2023 10:11:40 AM Referred By: Confirmed By:ARIN NICOLE MD
--- NOTE | 2023-10-11 06:33 | EDS_ITS ---
HPI <Dr. Pj Kamara MD - Last Filed: 10/11/23 07:25> History of Present Illness Chief Complaint: Cough Informant: patient Narrative Narrative: Patient presents with dyspnea. Patient started her symptoms about a week ago. It started with a cough. She was bringing up some whitish-yellow sputum that was a little bit more than her baseline. She has never had fevers chills or chest pain. No muscle aches. No nausea vomiting diarrhea. She has a long history of significant COPD. She is not on oxygen all the time but does have it at home and she uses it every time her oxygen level drops into the 80s. She was seen on Saturday at urgent care. She was started on prednisone at 40 mg a day for 4 days and then down to 30 for 4 days, 20 and then 10. She is taken her first dose of 30 mg. This initial dose is 1 mg/kg since she is a small person. She was also started on 100 mg of doxycycline twice a day. No history of PE or DVT. No history of heart disease other than an episode of Takotsubo that I noted on her medical record. Patient states that she does not want to come in the hospital. She wants medicines to help her get better and then go home. I find out she also has a nebulizer at home she has albuterol. But she does not have Atrovent. PFSH <Dr. Pj Kamara MD - Last Filed: 10/11/23 07:25> [facility] Medical History Atherosclerotic heart disease of [place] coronary artery without angina pectoris Chronic insomnia COPD (chronic obstructive pulmonary disease) COPD exacerbation Hernia Kidney stones NSTEMI, initial episode of care Psoriasis Smoker Takotsubo cardiomyopathy Vitamin D deficiency Home Medications multivitamin-ferrous fumarate-folic acid 18 mg-400 mcg tablet (Multi Complete with Iron) 1 tab PO DAILY 01/31/22 [History Last Taken Unknown] aspirin 81 mg chewable tablet 81 mg PO BREAKFAST 30 days #30 tabs 02/01/22 [Rx Last Taken Unknown] albuterol sulfate 2.5 mg/3 mL (0.083 %) solution for nebulization 2.5 mg (3 mL) inhalation Q4H PRN Dyspnea, wheezing 30 days #180 mL 12/05/22 [Rx Last Taken Unknown] albuterol sulfate 90 mcg/actuation aerosol inhaler 2 inh inhalation Q4H PRN shortness of breath or wheezing #3 ea 01/10/23 [Rx Last Taken Unknown] fluticasone fur. 100 mcg-umeclid 62.5 mcg-vilant 25 mcg inhalat.powder (Trelegy Ellipta) 1 ea inhalation DAILY lungs #3 ea 01/10/23 [Rx Last Taken Unknown] benzonatate 200 mg capsule 200 mg PO TID PRN cough #90 caps 02/28/23 [Rx Last Ta coco Unknown] lisinopril 2.5 mg tablet 2.5 mg PO DAILY #90 tabs 05/22/23 [Rx Last Taken Unknown] Nebulizer tubing/equipment #1 ea 05/24/23 [Rx Last Taken Unknown] doxycycline hyclate 100 mg capsule 100 mg PO Q12H 10/11/23 [History Last Taken Unknown] guaifenesin 1,200 mg tablet, extended release 12 hr (Mucinex) 1,200 mg PO BID 10/11/23 [History Last Taken Unknown] ipratropium bromide 0.02 % solution for inhalation 2.5 ml inhalation Q6H PRN shortness of breath or wheezing #62.5 mL 10/11/23 [Rx Last Taken Unknown] prednisone 10 mg tablet See Taper PO DAILY 10/11/23 [History Last Taken Unknown] Allergy/AdvReac Type Severity Reaction Status Date / Time brompheniramine Allergy Other Verified 10/11/23 06:13 [From Bromphenex DM] dextromethorphan Allergy Other Verified 10/11/23 06:13 [From Bromphenex DM] pseudoephedrine Allergy Other Verified 10/11/23 06:13 [From Bromphenex DM] Family History Father COPD (chronic obstructive pulmonary disease) Colon cancer Heart disease Brother COPD (chronic obstructive pulmonary disease) Lung cancer Diabetes Heart disease Hypertension Mother Heart disease Arthritis Brother Lung cancer Brother Lung cancer Son Cancer renal Other Uterine cancer Surgical History Cataract extraction status H/O eye surgery H/O hernia repair H/O skin graft H/O: hysterectomy History of bladder surgery History of left heart catheterization (LHC) (~01/31/22) Social History household members: spouse current occupational status: 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 Pj Kamara MD - Last Filed: 10/11/23 07:25> ROS ED ROS Narrative A complete review of systems was performed and is negative except as documented in the history of present illness. Some specific details below. Constitutional: No recent fevers or chills. No malaise or myalgias ENT: No difficulty swallowing. No swelling. No pain. No reflux symptoms. No nasal drainage. CV: She denies chest pain or palpitations. No syncope or near syncope. Respiratory: See history of present illness. GI: No abdominal pain. No nausea vomiting diarrhea. No blood in stool. : No frequency dysuria or hematuria. Musculoskeletal: No recent trauma. No pains. No swelling. Skin: No rash. Nondiaphoretic. Neuro: No weakness or numbness. Endocrine: No polyuria or polydipsia. EXAM <Dr. Pj Kamara MD - Last Filed: 10/11/23 07:25> Physical Exam Narrative Exam Narrative: CONSTITUTIONAL: Patient is nontoxic in appearance. The patient looks comfortable. Work of breathing looks slightly increased. HEENT: No notable trauma. Mucous membranes moist. EYES: No conjunctival injection. No pallor noted. NECK:No JVD. No stridor. CARDIOVASCULAR: Mildly tachycardic rate. Regular rhythm. No notable murmur. No JVD. RESPIRATORY: She is not in respiratory distress. She is able to carry on conversation. But she obviously has some increased work of breathing. Her lungs show diffuse inspiratory and expiratory wheezing with decreased air motion bilaterally. No asymmetry. No subcutaneous air. Saturations were about 87% on room air when she walked in here. But they are normal at about 94% on 2 L. GASTROINTESTINAL: Not distended. Bowel sounds are normal. No tenderness. GENITOURINARY: No CVA tenderness. MUSCULOSKELETAL: Atraumatic. No peripheral edema. No cord. No tenderness along the deep venous system. No asymmetry. No distended veins. NEUROLOGICAL: Patient is alert and appropriate. No focal deficit noted. No lethargy or confusion. No indication of CO2 retention at all. SKIN: No noted rashes. No diaphoresis. PSYCHIATRIC: Patient is calm. Mood is appropriate. Const Vital Signs: 10/11/23 06:19 10/11/23 06:19 10/11/23 06:22 Temperature 97.7 F L 97.7 F L Temperature Source Temporal Temporal Pulse Rate 106 H 106 H Respiratory Rate 24 H 21 H Respiratory Effort Short of Breath Blood Pressure 142/98 H 142/98 H Blood Pressure Mean 112 112 Pulse Ox 87 93 Oxygen Delivery Method Room Air Nasal Cannula Oxygen Flow Rate (L/min) 2 10/11/23 06:22 10/11/23 06:43 10/11/23 06:50 Temperature Temperature Source Pulse Rate Respiratory Rate Respiratory Effort Blood Pressure Blood Pressure Mean Pulse Ox 93 92 Oxygen Delivery Method Nasal Cannula Nasal Cannula Nasal Cannula Oxygen Flow Rate (L/min) 2 2 2 10/11/23 06:50 10/11/23 07:18 10/11/23 07:43 Temperature Temperature Source Pulse Rate 103 H 106 H 116 H Respiratory Rate 19 H 25 H 20 H Respiratory Effort Blood Pressure 101/76 Blood Pressure Mean 84 Pulse Ox 94 Oxygen Delivery Method Nasal Cannula Oxygen Flow Rate (L/min) 2.5 10/11/23 07:54 Temperature 98.3 F Temperature Source Oral Pulse Rate 113 H Respiratory Rate 29 H Respiratory Effort Blood Pressure 98/78 Blood Pressure Mean 84 Pulse Ox 93 Oxygen Delivery Method Nasal Cannula Oxygen Flow Rate (L/min) 2.5 <Dr. Adama Mast, DO - Last Filed: 10/11/23 08:46> Physical Exam Const Vital Signs: 10/11/23 06:19 10/11/23 06:19 10/11/23 06:22 Temperature 97.7 F L 97.7 F L Temperature Source Temporal Temporal Pulse Rate 106 H 106 H Respiratory Rate 24 H 21 H Respiratory Effort Short of Breath Blood Pressure 142/98 H 142/98 H Blood Pressure Mean 112 112 Pulse Ox 87 93 Oxygen Delivery Method Room Air Nasal Cannula Oxygen Flow Rate (L/min) 2 10/11/23 06:22 10/11/23 06:43 10/11/23 06:50 Temperature Temperature Source Pulse Rate Respiratory Rate Respiratory Effort Blood Pressure Blood Pressure Mean Pulse Ox 93 92 Oxygen Delivery Method Nasal Cannula Nasal Cannula Nasal Cannula Oxygen Flow Rate (L/min) 2 2 2 10/11/23 06:50 10/11/23 07:18 10/11/23 07:43 Temperature Temperature Source Pulse Rate 103 H 106 H 116 H Respiratory Rate 19 H 25 H 20 H Respiratory Effort Blood Pressure 101/76 Blood Pressure Mean 84 Pulse Ox 94 Oxygen Delivery Method Nasal Cannula Oxygen Flow Rate (L/min) 2.5 10/11/23 07:54 Temperature 98.3 F Temperature Source Oral Pulse Rate 113 H Respiratory Rate 29 H Respiratory Effort Blood Pressure 98/78 Blood Pressure Mean 84 Pulse Ox 93 Oxygen Delivery Method Nasal Cannula Oxygen Flow Rate (L/min) 2.5 MDM <Dr. Pj Kamara MD - Last Filed: 10/11/23 07:25> [facility] MDM Narrative Medical decision making narrative: My independent interpretation of her PA and lateral chest x-ray shows significant pulmonary scarring and chronic changes with signs of COPD. I did review a prior CT scan of the chest done about a month and a half ago. Allowing for different technique and they do have similar appearance. Final reading of her chest x-ray is pending. Patient CBC shows mild elevation of white count 11.2 but she is on her fourth day of steroids. Patient's electrolytes are overall normal. Patient's BNP is pending. Patient's influenza and COVID are both negative. I did listen the patient again after breathing treatments. She still has wheezing but is actually moving better air. She states she feels better. Saturations are 94/95% on 2 L. Patient still affirms that she wants to go home. I told her that she is on good therapy with prednisone and doxycycline. I can add Atrovent for her nebulizer. But if she is not improving I still recommend she come back in and she may need to be admitted at that point. Lab Data Attestation: I reviewed the patient's lab results. Labs: Laboratory Results - last 24 hr 10/11/23 06:35 WBC 11.2 H RBC 4.54 Hgb 13.1 Hct 39.6 MCV 87.2 MCH 28.9 MCHC 33.1 RDW Std Deviation 42.5 RDW Coeff of Carter 13.4 Plt Count 281 MPV 8.5 Immature Gran % (Auto) 0.300 Neut % (Auto) 80.9 H Lymph % (Auto) 7.[address] [place] % (Auto) 10.6 H Eos % (Auto) 0.2 Baso % (Auto) 0.4 Absolute Neuts (auto) 9.1 H Absolute Lymphs (auto) 0.85 Nucleated RBC % 0 Sodium 136 Potassium 3.6 Chloride 102 Carbon Dioxide 27.0 Anion Gap 7 BUN 22 H Creatinine 0.51 L Estim Creat Clear Calc 29.39 Est GFR (MDRD) Af Amer 152 Est GFR (MDRD) Non-Af 125 BUN/Creatinine Ratio 43.4 H Glucose 107 H Calcium 9.0 B-Natriuretic Peptide 40.9 Radiography Diagnostic Testing: Clinical Impression(s) from Imaging Studies Chest X-Ray 10/11/23 07:00 IMPRESSION: COPD with superimposed basilar congestive versus atelectatic changes. Electronically Signed: Otoniel Waite MD at 7:29 EST , EKG Initial EKG: Comments: My independent interpretation of the patient's EKG shows a normal sinus rhythm with overall rate of 99. No ventricular ectopy. Mild baseline variation. Nonspecific ST and T wave change but no sign of acute infarct or ischemia. MT interval, QRS duration and QTc are normal. <Dr. Adama Mast, DO - Last Filed: 10/11/23 08:46> [facility] Lab Data Labs: Laboratory Results - last 24 hr 10/11/23 06:35 WBC 11.2 H RBC 4.54 Hgb 13.1 Hct 39.6 MCV 87.2 MCH 28.9 MCHC 33.1 RDW Std Deviation 42.5 RDW Coeff of [place] 13.4 Plt Count 281 MPV 8.5 Immature Gran % (Auto) 0.300 Neut % (Auto) 80.9 H Lymph % (Auto) 7.[address] [place] % (Auto) 10.6 H Eos % (Auto) 0.2 Baso % (Auto) 0.4 Absolute Neuts (auto) 9.1 H Absolute Lymphs (auto) 0.85 Nucleated RBC % 0 Sodium 136 Potassium 3.6 Chloride 102 Carbon Dioxide 27.0 Anion Gap 7 BUN 22 H Creatinine 0.51 L Estim Creat Clear Calc 29.39 Est GFR (MDRD) Af Amer 152 Est GFR (MDRD) Non-Af 125 BUN/Creatinine Ratio 43.4 H Glucose 107 H Calcium 9.0 B-Natriuretic Peptide 40.9 Radiography Chest X-Ray - ED: 2 View, Read by ED Physician, Read by Radiologist, Chronic Changes and No Infiltrates Diagnostic Testing: Clinical Impression(s) from Imaging Studies Chest X-Ray 10/11/23 07:00 IMPRESSION: COPD with superimposed basilar congestive versus atelectatic changes. Electronically Signed: Otoniel Waite MD at 7:29 EST , PA and lateral chest x-ray was obtained. There are 2 views. On my independent interpretation, lung henson show chronic changes with bibasilar atelectasis. There is normal cardiac silhouette. Bony thorax is normal. There is no acute process noted. Radiologist also interpreted the x-ray and agrees. Treatment and Re-Evaluation :: Care of the patient was turned over to me pending chest x-ray results and BNP results. Chest x-ray was obtained. There are 2 views. On my independent interpretation, there are chronic changes consistent with COPD. There is bibasilar atelectasis. There is no acute infiltrate noted. Radiologist also interpreted the x-rays and agrees. BNP was reviewed and was within normal limits. Patient is feeling better and wants to go home. Patient will be discharged. Patient was instructed to follow-up with her primary care physician in 5 to 7 days. Patient was instructed return if worse in any way. Patient understood and was agreeable with the plan. All questions were answered. Discharge Plan Triage Chief Complaint: Cough ED Provider: Pj Kamara Dx/Rx/DC Orders Clinical Impression: COPD with acute exacerbation, Nicotine dependence, cigarettes, uncomplicated Instructions: ED COPD Flare Prescriptions: New ipratropium bromide 0.02 % solution 2.5 ml inhalation Q6H PRN (Reason: shortness of breath or wheezing) Qty: 62.5 1RF No Action Multi Complete with Iron 18-400 mg-mcg Tablet 1 tab PO DAILY aspirin 81 mg Tablet,Chewable 81 mg PO BREAKFAST 30 Days Qty: 30 1RF doxycycline hyclate 100 mg capsule 100 mg PO Q12H prednisone 10 mg tablet See Taper PO DAILY Taper: Prednisone Taper 40 mg WITH BREAKFAST for 3 Days 30 mg WITH BREAKFAST for 3 Days 20 mg WITH BREAKFAST for 7 Days guaifenesin [Mucinex] 1,200 mg tablet extended release 12hr 1,200 mg PO BID albuterol sulfate 2.5 mg /3 mL (0.083 %) solution for nebulization 2.5 mg inhalation Q4H PRN (Reason: Dyspnea, wheezing) 30 Days Qty: 180 11RF albuterol sulfate 90 mcg/actuation HFA aerosol inhaler 2 inh INHALATION Q4H PRN (Reason: shortness of breath or wheezing) Qty: 3 6RF Trelegy Ellipta 100-62.5-25 mcg blister with device 1 ea INHALATION DAILY Qty: 3 3RF benzonatate 200 mg capsule 200 mg PO TID PRN (Reason: cough) Qty: 90 3RF lisinopril 2.5 mg tablet 2.5 mg PO DAILY Qty: 90 3RF (DME) Nebulizer tubing/equipment See Rx Instructions .ROUTE .MEDSUPPLY Qty: 1 6RF Rx Instructions: As directed Primary Care Provider: Molly Farias Referrals: Molly Farias DO [Primary Care Provider] - 1-2 Days if not improving Activity Restrictions/Additional Instructions: Return if still having trouble breathing, oxygen level is dropping into the 80s with your oxygen, pain, fever or any other concerns. Disposition Disposition: Home, Self Care
[2023-10-11] MEDS: MethylPREDNISolone 125 MG/2 ML Vial IV (06:37)
[2023-10-11] MEDS: Ipratropium/Albuterol Sulfate 3 ML AMPUL.NEB INHALATION (06:42)
[2023-10-11] MEDS: Albuterol 2.5 MG/3 ML VIAL.NEB. INHALATION ×2 (06:42→07:41)
[2023-10-11 06:45] LABS: Absolute Lymphocyte Count 0.85 X10^3/uL (0.83-4.51); Absolute Neutrophil Count 9.1 X10^3/uL (2.0-7.7); Basophil# 0.04 X10^3/uL; Basophil% 0.4 % (0-1); Eosinophil# 0.02 X10^3/uL; Eosinophils% 0.2 % (0-5); Hematocrit 39.6 % (37-47); Hemoglobin 13.1 g/dL (12.0-15.0); Lymphocyte # 0.85 X10^3/ul (0.83-4.51); Lymphocyte % 7.6 % (19-41); Mean Corp Hgb Conc 33.1 g/dL (32-36); Mean Corpuscular Hgb 28.9 pg (27.0-32.0); Mean Corpuscular Volume 87.2 fL (81-99); Mean Platelet Vol. 8.5 fl (6.2-12.0); Monocyte# 1.19 X10^3/uL; Monocyte% 10.6 % (0-10); NRBC Flagged by Analyzer 0 % (0-5); Neutrophil # 9.07 X10^3/uL (2.7-7.7); Neutrophil % 80.9 % (47-70); Platelet Count 281 K/mm3 (150-450); RBC Distribution Width CV 13.4 % (11.6-14.6); RBC Distribution Width SD 42.5 fl (35.1-43.9); Red Blood Count 4.54 M/mm3 (4.2-5.4); White Blood Count 11.2 K/mm3 (4.4-11.0)
--- NOTE | 2023-10-11 07:00 | RAD_ITS ---
INDICATION: Cough, shortness of breath EXAMINATION/TECHNIQUE: X-RAY - frontal and lateral views of chest COMPARISON: None FINDINGS: LINES/DEVICES: None. LUNGS: Hyperexpanded lungs and flattened diaphragms. Scattered bilateral lung scarring. Biapical bullous changes. Coarsened markings within lower lungs. Chronic blunting of costophrenic angles. No detectable pneumothorax. MEDIASTINUM AND CARDIOVASCULAR STRUCTURES: Heart normal size. Atherosclerotic calcifications along aorta. BONES AND SOFT TISSUES: Skeletal degenerative changes. RAD/Chest PA and Lateral IMPRESSION: COPD with superimposed basilar congestive versus atelectatic changes. Electronically Signed: Otoniel Waite MD at 7:29 EST ,
[2023-10-11 07:05] LABS: Anion Gap 7 (5-15); BUN 22 mg/dL (7-18); BUN/Creat Ratio 43.4 RATIO (10-20); Chloride 102 mmol/L (98-107); Creatinine, Serum 0.51 mg/dL (0.55-1.02); EST Glomerular Filtration Rate 125 mL/min (>60); Est Glom Filt Rate - Afr Amer 152 mL/min (>60); Estimated Creatinine Clearance 29.39 ml/min; Glucose 107 mg/dL (74-106); Potassium 3.6 mmol/L (3.5-5.1); Sodium Level 136 mmol/L (136-145)
[2023-10-11 07:55] LABS: BNP,B-Type NATRIURETIC PEPTIDE 40.9 pg/mL (0-100)
== END 2023-10-11 09:11 | disposition home or self-care (01) ==
PROVIDERS: Emergency Provider Emergency Medicine; PCP Family Medicine; Visit Provider Emergency Medicine
DX: J44.1 Chronic obstructive pulmonary disease with (acute) exacerbation (principal); I25.10 Atherosclerotic heart disease of native coronary artery without angina pectoris; F17.210 Nicotine dependence, cigarettes, uncomplicated; Z99.81 Dependence on supplemental oxygen; Z79.51 Long term (current) use of inhaled steroids; Z98.49 Cataract extraction status, unspecified eye; Z90.710 Acquired absence of both cervix and uterus; R06.00 Dyspnea, unspecified; R05.9 Cough, unspecified
CPT/HCPCS: 71046; 80048; 83880; 85025; 87428; 93005; 94640; 96374; 99283; A4216

== ENCOUNTER 2023-10-17 09:00 | Inpatient (IN) | payer MEDICARE, SELFPAY ==
[2023-10-17] VITALS (18 sets, daily range): BP systolic 107–144; BP diastolic 63–79; PULSE 85–126; RESP 16–30; TEMP 36.4–37.2; O2SAT 78–94; BMI 16.8; BMI 16.5
--- NOTE | 2023-10-17 09:25 | EDS_ITS ---
HPI History of Present Illness Chief Complaint: Shortness of Breath Informant: patient Onset/Context/Timing Onset: Days Context: gradual Timing: Continuous Quality: Positive for Dyspnea on exertion Worsened by: Exertion and Lying flat Relieved by: Oxygen Associated Symptoms cough, rhinorrhea, chills and white sputum; Negative for post nasal drip, ear pain, fever, sore throat, sweats, yellow sputum or green sputum Chest Pain: Positive for None Narrative Narrative: Patient presents with shortness of breath that has been getting worse over the past 2 days. Patient was seen here recently for COPD exacerbation. Patient states her breathing is worse with any exertion and with laying flat. Patient states that her oxygen has been helping with her breathing. Patient admits to a cough with some white sputum. Patient admits to some rhinorrhea. Patient also admits to some subjective chills. Patient denies any fevers. Patient denies any chest pain. Patient denies any nausea or vomiting. Patient states she completed a recent course of prednisone and doxycycline for COPD exacerbation. PE Risk Factors: Negative for Cancer, OCP + Smoking + > 35, Prior DVT or PE, Recent immobilization, Recent surgery or Recent travel [facility] Medical History Atherosclerotic heart disease of teller coronary artery without angina pectoris Chronic insomnia COPD (chronic obstructive pulmonary disease) COPD exacerbation Hernia Kidney stones NSTEMI, initial episode of care Psoriasis Smoker Takotsubo cardiomyopathy Vitamin D deficiency Home Medications multivitamin-ferrous fumarate-folic acid 18 mg-400 mcg tablet (Multi Complete with Iron) 1 tab PO DAILY 01/31/22 [History Last Taken 10/16/23] aspirin 81 mg chewable tablet 81 mg PO BREAKFAST 30 days #30 tabs 02/01/22 [Rx Last Taken 10/16/23] albuterol sulfate 2.5 mg/3 mL (0.083 %) solution for nebulization 2.5 mg (3 mL) inhalation Q4H PRN Dyspnea, wheezing 30 days #180 mL 12/05/22 [Rx Last Taken 10/16/23] albuterol sulfate 90 mcg/actuation aerosol inhaler 2 inh inhalation Q4H PRN shor tness of breath or wheezing #3 ea 01/10/23 [Rx Last Taken Unknown] fluticasone fur. 100 mcg-umeclid 62.5 mcg-vilant 25 mcg inhalat.powder (Trelegy Ellipta) 1 ea inhalation DAILY lungs #3 ea 01/10/23 [Rx Last Taken 10/17/23] benzonatate 200 mg capsule 200 mg PO TID PRN cough #90 caps 02/28/23 [Rx Last Taken Unknown] lisinopril 2.5 mg tablet 2.5 mg PO DAILY #90 tabs 05/22/23 [Rx Last Taken 10/16/23] Nebulizer tubing/equipment #1 ea 05/24/23 [Rx Last Taken Unknown] guaifenesin 1,200 mg tablet, extended release 12 hr (Mucinex) 1,200 mg PO BID 10/11/23 [History Last Taken Unknown] ipratropium bromide 0.02 % solution for inhalation 2.5 ml inhalation Q6H PRN shortness of breath or wheezing #62.5 mL 10/11/23 [Rx Last Taken 10/16/23] Allergy/AdvReac Type Severity Reaction Status Date / Time brompheniramine Allergy Other Verified 10/17/23 09:01 [From Bromphenex DM] dextromethorphan Allergy Other Verified 10/17/23 09:01 [From Bromphenex DM] pseudoephedrine Allergy Other Verified 10/17/23 09:01 [From Bromphenex DM] Family History Father COPD (chronic obstructive pulmonary disease) Colon cancer Heart disease Brother COPD (chronic obstructive pulmonary disease) Lung cancer Diabetes Heart disease Hypertension Mother Heart disease Arthritis Brother Lung cancer Brother Lung cancer Son Cancer renal Other Uterine cancer Surgical History Cataract extraction status H/O eye surgery H/O hernia repair H/O skin graft H/O: hysterectomy History of bladder surgery History of left heart catheterization (LHC) (~01/31/22) Social History household members: spouse current occupational status: 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 Smoking Status: Current every day smoker tobacco type: cigarettes Tobacco: How many years used: 40 Electronic Cigarette Use: not used second hand exposure: No alcohol intake: never substance use type: does not use what type of physical activity do you participate in: none do you feel safe at home: Yes ROS ROS ED Constitutional Constitutional ED: Reports chills; Denies fever(s) Eyes Eyes: Denies blurry vision or change in vision ENT ENT ED: Reports rhinorrhea; Denies sore throat Cardiovascular Cardiovascular: Denies chest pain or palpitations Respiratory/Chest Respiratory/Chest: Reports cough and dyspnea Gastrointestinal Gastrointestinal: Denies nausea or vomiting Genitourinary Genitourinary ED: Denies dysuria or hematuria Musculoskeletal Musculoskeletal: Reports back pain; Denies neck pain Integumentary Denies abscess or rash Neurologic Neurologic: Denies headache(s) or weakness Allergic/Immunologic Allergic/Immunologic ED: Denies mouth swelling or urticaria EXAM Physical Exam Const Vital Signs: 10/17/23 09:01 10/17/23 09:03 10/17/23 09:09 Temperature 99 F Temperature Source Temporal Pulse Rate 126 H Respiratory Rate 30 H Respiratory Effort Respiratory Depth Respiratory Pattern Blood Pressure 144/79 H Blood Pressure Mean 100 Pulse Ox 78 89 90 Oxygen Delivery Method Room Air Nasal Cannula Nasal Cannula Oxygen Flow Rate (L/min) 2 4 10/17/23 09:09 10/17/23 09:11 10/17/23 09:13 Temperature 97.6 F L Temperature Source Oral Pulse Rate 120 H Respiratory Rate 27 H Respiratory Effort Short of Breath Labored Respiratory Depth Deep Respiratory Pattern Hyperpnea Blood Pressure 141/72 H Blood Pressure Mean 95 Pulse Ox 88 93 Oxygen Delivery Method Nasal Cannula Nasal Cannula Nasal Cannula Oxygen Flow Rate (L/min) 2 3 3 10/17/23 09:13 10/17/23 10:09 10/17/23 10:07 Temperature Temperature Source Pulse Rate 112 H Respiratory Rate 27 H Respiratory Effort Respiratory Depth Respiratory Pattern Normal Blood Pressure Blood Pressure Mean Pulse Ox 93 93 Oxygen Delivery Method Nasal Cannula Nasal Cannula Oxygen Flow Rate (L/min) 3 3 10/17/23 11:03 10/17/23 11:39 Temperature 98.2 F 98 F Temperature Source Temporal Pulse Rate 106 H 109 H Respiratory Rate 26 H 24 H Respiratory Effort Respiratory Depth Respiratory Pattern Blood Pressure 124/74 H 107/76 Blood Pressure Mean 90 86 Pulse Ox 91 91 Oxygen Delivery Method Nasal Cannula Oxygen Flow Rate (L/min) 3 Positive well nourished General Appearance ED: NAD HEENT Reports moist mucous membranes Neck supple and no JVD Resp Auscultation: wheezes expiratory wheezes and throughout and diminished lung sounds diffuse Cardio regular rhythm Rate: tachycardic GI non-tender and non-distended Auscultation: normoactive bowel sounds Palpation: soft Extremity normal to inspection General Extremety ED: Negative for edema or tenderness General Extremity: Negative for edema Neuro oriented x3, CN's II-XII intact bilaterally and no sensory deficits noted [place] Coma Scale: document GCS findings Spontaneous Obeys Commands Oriented 15 Sensorium / Orientation: alert Speech: speech normal Motor Exam: strength 5/5 throughout Psych mental status grossly normal MDM MDM MDM Narrative Medical decision making narrative: Differential diagnosis includes COPD exacerbation, pneumonia, bronchitis, viral upper respiratory infection, cardiac dysrhythmia, cardiac ischemia, and pulmonary embolism. EKG will be obtained to assess for cardiac dysrhythmia and cardiac ischemia. Chest x-ray will be obtained to assess for pneumonia and pneumothorax. CBC will be obtained to assess for leukocytosis and anemia. Basic metabolic profile will be obtained to assess for electrolyte abnormality and renal function. D-dimer will be obtained to assess for pulmonary embolism. High-sensitivity troponin will be obtained to assess for cardiac ischemia. Lab Data Attestation: I reviewed the patient's lab results. Lab results narrative: CBC was reviewed. There is a mild leukocytosis of 12.3. Basic metabolic profile was reviewed and was within normal limits. High-sensitivity troponin was reviewed and was normal at 8. D-dimer was reviewed and was normal at 0.43. Labs: Laboratory Results - last 24 hr 10/17/23 10/17/23 09:10 10:38 WBC 12.3 H RBC 4.90 Hgb 13.8 Hct 43.1 MCV 88.0 MCH 28.2 MCHC 32.0 RDW Std Deviation 43.7 RDW Coeff of Carter 13.5 Plt Count 319 MPV 8.7 Immature Gran % (Auto) 0.600 Neut % (Auto) 91.2 H Lymph % (Auto) 3.4 L [place] % (Auto) 4.5 Eos % (Auto) 0.1 Baso % (Auto) 0.2 Absolute Neuts (auto) 11.3 H Absolute Lymphs (auto) 0.42 L Nucleated RBC % 0 Differential Comment SCANNED D-Dimer Quant (PE/DVT) 0.43 Sodium 136 Potassium 3.8 Chloride 101 Carbon Dioxide 32.0 Anion Gap 3 L BUN 13 Creatinine 0.96 Estim Creat Clear Calc 30.77 Est GFR (MDRD) Af Amer 72 Est GFR (MDRD) Non-Af 60 BUN/Creatinine Ratio 13.5 Glucose 102 Calcium 8.8 Troponin I High Sens 8 Radiography Chest X-Ray - ED: 2 View, Read by ED Physician and Read by Radiologist Diagnostic Testing: Clinical Impression(s) from Imaging Studies Chest X-Ray 10/17/23 10:15 IMPRESSION: Findings suggestive of a chronic interstitial scarring worse at the lung bases with a superimposed infiltrate in the right lower lobe. Electronically Signed: Ron Lassiter MD at 10:33 EST , PA and lateral chest x-rays obtained. There are 2 views. On my independent interpretation, there are chronic changes. There is a right lower lobe infiltrate. There is no cardiomegaly noted. Bony thorax is normal. Radiologist also interpreted the x-ray and agrees. EKG Initial EKG: Attestation: I personally reviewed and interpreted this EKG as follows: Interpretation: Sinus Tachycardia (112) and Non-Specific ST Changes Comments: EKG was obtained. On my independent interpretation, it showed a sinus tachycardia with a rate of 112. CA interval, QRS interval, and QTc intervals were all normal. [place] was normal. There are nonspecific ST-T wave changes. Prior EKG tracings: available for review Prior: Unchanged (10/11/2023) Management Discussion w/another healthcare provider: Hospitalist Treatment and Re-Evaluation :: Smoking cessation was discussed. Patient was given a DuoNeb aerosol here. Patient was given a dose of Solu-Medrol. Patient was advised of her findings. Patient was started on Rocephin and Zithromax. Patient is agreeable to admission to the hospital. Case will be discussed with the hospitalist for admission. He will admit the patient to medical surgical floor. Discharge Plan Triage Chief Complaint: Shortness of Breath ED Provider: Adama Mast Dx/Rx/DC Orders Clinical Impression: Pneumonia, Nicotine dependence, cigarettes, uncomplicated, COPD with acute exacerbation Prescriptions: No Action Multi Complete with Iron 18-400 mg-mcg Tablet 1 tab PO DAILY aspirin 81 mg Tablet,Chewable 81 mg PO BREAKFAST 30 Days Qty: 30 1RF guaifenesin [Mucinex] 1,200 mg tablet extended release 12hr 1,200 mg PO BID ipratropium bromide 0.02 % solution 2.5 ml inhalation Q6H PRN (Reason: shortness of breath or wheezing) Qty: 62.5 1RF albuterol sulfate 2.5 mg /3 mL (0.083 %) solution for nebulization 2.5 mg inhalation Q4H PRN (Reason: Dyspnea, wheezing) 30 Days Qty: 180 11RF albuterol sulfate 90 mcg/actuation HFA aerosol inhaler 2 inh INHALATION Q4H PRN (Reason: shortness of breath or wheezing) Qty: 3 6RF Trelegy Ellipta 100-62.5-25 mcg blister with device 1 ea INHALATION DAILY Qty: 3 3RF benzonatate 200 mg capsule 200 mg PO TID PRN (Reason: cough) Qty: 90 3RF lisinopril 2.5 mg tablet 2.5 mg PO DAILY Qty: 90 3RF (DME) Nebulizer tubing/equipment See Rx Instructions .ROUTE .MEDSUPPLY Qty: 1 6RF Rx Instructions: As directed Primary Care Provider: Molly Farias Referrals: Molly Farias DO [Primary Care Provider] - Disposition Disposition: Acute Care Hospital [facility]
[2023-10-17] MEDS: Ipratropium/Albuterol Sulfate 3 ML AMPUL.NEB INHALATION ×2 (10:06→20:10)
[2023-10-17 10:10] LABS: Absolute Lymphocyte Count 0.42 X10^3/uL (0.83-4.51); Absolute Neutrophil Count 11.3 X10^3/uL (2.0-7.7); Basophil# 0.03 X10^3/uL; Basophil% 0.2 % (0-1); Eosinophil# 0.01 X10^3/uL; Eosinophils% 0.1 % (0-5); Hematocrit 43.1 % (37-47); Hemoglobin 13.8 g/dL (12.0-15.0); Lymphocyte # 0.42 X10^3/ul (0.83-4.51); Lymphocyte % 3.4 % (19-41); Mean Corpuscular Hgb 28.2 pg (27.0-32.0); Mean Platelet Vol. 8.7 fl (6.2-12.0); Monocyte# 0.55 X10^3/uL; Monocyte% 4.5 % (0-10); NRBC Flagged by Analyzer 0 % (0-5); Neutrophil # 11.25 X10^3/uL (2.7-7.7); Neutrophil % 91.2 % (47-70); POSITIVE DIFFERENTIAL YES; Platelet Count 319 K/mm3 (150-450); RBC Distribution Width CV 13.5 % (11.6-14.6); RBC Distribution Width SD 43.7 fl (35.1-43.9); White Blood Count 12.3 K/mm3 (4.4-11.0)
[2023-10-17 10:11] LABS: Differential Indicated SCAN CRITERIA MET
[2023-10-17] MEDS: MethylPREDNISolone 125 MG/2 ML Vial 80 MG IV (10:15)
--- NOTE | 2023-10-17 10:15 | RAD_ITS ---
STUDY: X-RAY CHEST REASON FOR EXAM: Female, 78 years old. Dyspnea . Cough and chills. TECHNIQUE: PA and lateral views of the chest. COMPARISON: Comparison is made with prior study dated October 11, 2023. FINDINGS: EKG electrodes are seen. There is hyperinflation of the lungs consistent with chronic obstructive lung disease (COPD). Stable increased markings at the lung bases worse on the right side suggestive of scarring with possible superimposed infiltrate in the right lower lobe. Stable scarring at the right lung apex. There is no demonstrated pleural abnormality. Normal size heart. Normal mediastinum and tino. Normal visualized pulmonary arteries. There is atherosclerotic calcification of the aortic arch with tortuosity. Normal visualized thoracic spine. Normal visualized ribs, clavicles, and shoulders. There is no demonstrated abnormality of the visualized soft tissue structures of the upper abdomen. RAD/Chest PA and Lateral IMPRESSION: Findings suggestive of a chronic interstitial scarring worse at the lung bases with a superimposed infiltrate in the right lower lobe. Electronically Signed: Ron Lassiter MD at 10:33 EST ,
[2023-10-17 10:25] LABS: Anion Gap 3 (5-15); BUN 13 mg/dL (7-18); BUN/Creat Ratio 13.5 RATIO (10-20); Calcium,Total 8.8 mg/dL (8.5-10.1); Chloride 101 mmol/L (98-107); Creatinine, Serum 0.96 mg/dL (0.55-1.02); EST Glomerular Filtration Rate 60 mL/min (>60); Est Glom Filt Rate - Afr Amer 72 mL/min (>60); Estimated Creatinine Clearance 30.77 ml/min; Glucose 102 mg/dL (74-106); Potassium 3.8 mmol/L (3.5-5.1); Sodium Level 136 mmol/L (136-145); Troponin-I HS 8 pg/mL (3.0-54.0)
[2023-10-17 10:39] LABS: Differential Comment SCANNED
[2023-10-17 11:05] LABS: D-Dimer Quantitative (DVT/PE) 0.43 FEU/ug/m (0.27-0.49)
[2023-10-17] MEDS: Ceftriaxone 2 GM in 0.9% Normal Saline (50mL MB+) 50 ML IV (11:35)
[2023-10-17] MEDS: Azithromycin 500 MG in Dextrose 5%-Water (250mL Bag) 250 ML 250 MG IV (12:54)
[2023-10-17] MEDS: 0.9% Saline Lock 10 ML Syringe IV ×2 (17:36→21:30)
--- NOTE | 2023-10-17 18:21 | HP.PCM.HOS_ITS ---
HPI - General General Date of Admission: 10/17/23 Date of Service: 10/17/23 Chief Complaint: Shortness of breath HPI Narrative JUANJOSE CUEVA, is a 78 F who presents to the emergency room at [facility] for evaluation of increased shortness of breath over the last 2 days, patient has home O2 but only uses it as needed. She states she has been coughing up some clear phlegm, she denies any fever but she states that at times she feels hot and then cold. Patient states that she started having increased dyspnea with cough productive of whitish-yellow sputum last week in September of this year. Patient was seen in the emergency room on 10/11/2023 here for exacerbation of COPD, she had been seen in an urgent care center 5 days before and had been started on prednisone taper and doxycycline. Patient was discharged from the emergency room on 10/11/2023 with instructions to follow-up with her PCP, she was kept on doxycycline and prednisone. Workup in the emergency room today included a chest x-ray which showed findings suggestive of a chronic interstitial scarring worse at the lung bases with a superimposed infiltrate in the right lower lobe. Patient was admitted to [place] [id number] for acute exacerbation of COPD and right lower lobe pneumonia, she will be maintained on IV Solu-Medrol and she was placed on IV Zithromax and Rocephin, I briefly talked with her about her CODE STATUS-she emphasized that she is a DNR CC arrest with no intubation. [facility] Medical History (Updated 10/17/23 @ 15:41 by Debora Bardales) Atherosclerotic heart disease of [place] coronary artery without angina pectoris Chronic insomnia COPD (chronic obstructive pulmonary disease) COPD exacerbation Hernia Hypertension Kidney stones NSTEMI, initial episode of care On home oxygen therapy Psoriasis Smoker Takotsubo cardiomyopathy Vitamin D deficiency Home Medications multivitamin-ferrous fumarate-folic acid 18 mg-400 mcg tablet (Multi Complete with Iron) 1 tab PO DAILY HEALTH MAINTENANCE 01/31/22 [History Last Taken 10/16/23] aspirin 81 mg chewable tablet 81 mg PO BREAKFAST HEART HEALTH 30 days #30 tabs 02/01/22 [Rx Last Taken 10/16/23] albuterol sulfate 2.5 mg/3 mL (0.083 %) solution for nebulization 2.5 mg (3 mL) inhalation Q4H PRN SHORTNESS OF BREATH/WHEEZING 30 days #180 mL 12/05/22 [Rx Last Taken 10/16/23] albuterol sulfate 90 mcg/actuation aerosol inhaler 2 inh inhalation Q4H PRN SHORTNESS OF BREATH/WHEEZING #3 ea 01/10/23 [Rx Last Taken Unknown] fluticasone fur. 100 mcg-umeclid 62.5 mcg-vilant 25 mcg inhalat.powder (Trelegy Ellipta) 1 ea inhalation DAILY COPD #3 ea 01/10/23 [Rx Last Taken 10/17/23] benzonatate 200 mg capsule 200 mg PO TID PRN COUGH #90 caps 02/28/23 [Rx Last Taken Unknown] lisinopril 2.5 mg tablet 2.5 mg PO DAILY BLOOD PRESSURE #90 tabs 05/22/23 [Rx Last Taken 10/16/23] Nebulizer tubing/equipment #1 ea 05/24/23 [Rx Last Taken Unknown] guaifenesin 1,200 mg tablet, extended release 12 hr (Mucinex) 1,200 mg PO BID CONGESTION 10/11/23 [History Last Taken Unknown] ipratropium bromide 0.02 % solution for inhalation 2.5 ml inhalation Q6H PRN SHORTNESS OF BREATH #62.5 mL 10/11/23 [Rx Last Taken 10/16/23] Allergy/AdvReac Type Severity Reaction Status Date / Time brompheniramine Allergy Other Verified 10/17/23 09:01 [From Bromphenex DM] dextromethorphan Allergy Other Verified 10/17/23 09:01 [From Bromphenex DM] pseudoephedrine Allergy Other Verified 10/17/23 09:01 [From Bromphenex DM] Family History Father COPD (chronic obstructive pulmonary disease) Colon cancer Heart disease Brother COPD (chronic obstructive pulmonary disease) Lung cancer Diabetes Heart disease Hypertension Mother Heart disease Arthritis Brother Lung cancer Brother Lung cancer Son Cancer renal Other Uterine cancer Surgical History Cataract extraction status H/O eye surgery H/O hernia repair H/O skin graft H/O: hysterectomy History of bladder surgery History of left heart catheterization (LHC) (~01/31/22) Social History household members: spouse current occupational status: 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 Smoking Status: Current every day smoker tobacco type: cigarettes Tobacco: How many years used: 40 Electronic Cigarette Use: not used second hand exposure: No alcohol intake: never substance use type: does not use what type of physical activity do you participate in: none do you feel safe at home: Yes ROS Constitutional Constitutional: Reports chills, fatigue, malaise and weakness; Denies anorexia, change in weight, fever(s) or night sweats Eyes Eyes: Denies blurry vision, change in vision, discharge from eye(s) or eye pain Cardiovascular Cardiovascular: Reports dyspnea on exertion; Denies chest pain, claudication, edema or palpitations Respiratory/Chest Respiratory/Chest: Reports cough, productive cough, shortness of breath at rest and shortness of breath with exertion; Denies hemoptysis Gastrointestinal Gastrointestinal: Denies abdominal pain, constipation, diarrhea, hematemesis, hematochezia, melena, nausea or vomiting Genitourinary Genitourinary: Denies dysuria, hematuria, urinary frequency, urinary hesitancy, urinary incontinence or urinary urgency Musculoskeletal Musculoskeletal: Denies back pain, joint pain, joint stiffness, joint swelling, myalgias or neck pain Neurologic Neurologic: Denies abnormal gait, abnormal speech, dizziness, focal weakness, headache(s), loss of vision, numbness, other visual disturbances, paresthesias, syncope or tingling Psychiatric Psychiatric: Denies anxiety, cognitive impairment, depression, irritability, mood swings or suicidal ideation Endocrine Endocrinology: Denies change in body appearance, cold intolerance, excessive sweating, heat intolerance, polydipsia or polyuria Hematologic/Lymphatic Hematologic/Lymphatic: Denies none, anemia, easy bleeding, easy bruising or lymphadenopathy Allergic/Immunologic Allergic/Immunologic: Denies rhinitis, urticaria, eczemia or asthma Vital Signs Vital Signs Vital Signs: 10/17/23 09:01 10/17/23 09:03 10/17/23 09:09 Temperature 99 F Temperature Source Temporal Pulse Rate 126 H Respiratory Rate 30 H Respiratory Effort Respiratory Depth Respiratory Pattern Blood Pressure 144/79 H Blood Pressure Mean 100 Blood Pressure Source Blood Pressure Position Blood Pressure Location Pulse Ox 78 89 90 Oxygen Delivery Method Room Air Nasal Cannula Nasal Cannula Oxygen Flow Rate (L/min) 2 4 10/17/23 09:09 10/17/23 09:11 10/17/23 09:13 Temperature 97.6 F L Temperature Source Oral Pulse Rate 120 H Respiratory Rate 27 H Respiratory Effort Short of Breath Labored Respiratory Depth Deep Respiratory Pattern Hyperpnea Blood Pressure 141/72 H Blood Pressure Mean 95 Blood Pressure Source Blood Pressure Position Blood Pressure Location Pulse Ox 88 93 Oxygen Delivery Method Nasal Cannula Nasal Cannula Nasal Cannula Oxygen Flow Rate (L/min) 2 3 3 10/17/23 09:13 10/17/23 10:09 10/17/23 10:07 Temperature Temperature Source Pulse Rate 112 H Respiratory Rate 27 H Respiratory Effort Respiratory Depth Respiratory Pattern Normal Blood Pressure Blood Pressure Mean Blood Pressure Source Blood Pressure Position Blood Pressure Location Pulse Ox 93 93 Oxygen Delivery Method Nasal Cannula Nasal Cannula Oxygen Flow Rate (L/min) 3 3 10/17/23 11:03 10/17/23 11:39 10/17/23 12:00 Temperature 98.2 F 98 F 98 F Temperature Source Temporal Temporal Pulse Rate 106 H 109 H 113 H Respiratory Rate 26 H 24 H 28 H Respiratory Effort Respiratory Depth Respiratory Pattern Blood Pressure 124/74 H 107/76 111/63 Blood Pressure Mean 90 86 79 Blood Pressure Source Blood Pressure Position Blood Pressure Location Pulse Ox 91 91 93 Oxygen Delivery Method Nasal Cannula Nasal Cannula Oxygen Flow Rate (L/min) 3 3 10/17/23 13:00 10/17/23 14:00 10/17/23 15:18 Temperature 97.8 F 97.8 F Temperature Source Temporal Temporal Pulse Rate 99 93 Respiratory Rate 22 H 26 H Respiratory Effort Respiratory Depth Respiratory Pattern Blood Pressure 116/74 111/69 Blood Pressure Mean 88 83 Blood Pressure Source Blood Pressure Position Blood Pressure Location Pulse Ox 93 92 92 Oxygen Delivery Method Nasal Cannula Nasal Cannula Nasal Cannula Oxygen Flow Rate (L/min) 3 3 3 10/17/23 15:30 10/17/23 16:32 Temperature 98.8 F Temperature Source Oral Pulse Rate 98 Respiratory Rate 20 H 20 H Respiratory Effort Short of Breath Respiratory Depth Respiratory Pattern Blood Pressure 112/65 Blood Pressure Mean 80 Blood Pressure Source Monitor Blood Pressure Position Semi-Fowlers Blood Pressure Location Right Arm Pulse Ox 94 Oxygen Delivery Method Nasal Cannula Nasal Cannula Oxygen Flow Rate (L/min) 2 3 Weight Weight: 38.3 kg Body Mass Index (BMI) 16.5 Physical Exam Const alert, oriented x3 and no apparent distress Constitutional Narrative: Patient appears cachectic General Appearance: cooperative, well kempt and well developed Orientation / Consciousness: awake, oriented to person, oriented to place and oriented to time HEENT normocephalic, head/scalp atraumatic, hearing grossly normal bilaterally and moist oral mucous membranes Eyes PERRL, EOMs intact bilaterally and conjunctivae normal Neck supple, no JVD, thyroid normal and no carotid bruits General: trachea midline Resp normal respiratory effort, no retractions and no use of accessory muscles Resp Narrative: Decreased breath sounds are noted bilaterally with occasional expiratory wheezes noted over both lung Auscultation: wheezes; Negative for rales or rhonchi Cardio regular rate, regular rhythm, S1 normal heart sound, S2 normal heart sound, no m urmurs, no rub and no gallops GI normal to inspection, nondistended, normoactive bowel sounds, soft to palpation, non-tender and non-distended Extremity no clubbing, cyanosis or edema Skin no rashes or lesions noted General Skin Exam: no breakdown Neuro oriented x3, CN's II-XII intact bilaterally, moves all extremities, no focal motor deficits and no sensory deficits noted Sensorium / Orientation: awake and alert Speech: speech normal Psych affect normal Results Lab / Micro Data 10/17/23 09:10 10/17/23 09:10 Labs: Laboratory Results - last 24 hr 10/17/23 09:10: WBC 12.3 H, RBC 4.90, Hgb 13.8, Hct 43.1, MCV 88.0, MCH 28.2, MCHC 32.0, RDW Std Deviation 43.7, RDW Coeff of Carter 13.5, Plt Count 319, MPV 8.7, Immature Gran % (Auto) 0.600, Neut % (Auto) 91.2 H, Lymph % (Auto) 3.4 L, Leslie % (Auto) 4.5, Eos % (Auto) 0.1, Baso % (Auto) 0.2, Absolute Neuts (auto) 11.3 H, Absolute Lymphs (auto) 0.42 L, Nucleated RBC % 0, Differential Comment SCANNED, Sodium 136, Potassium 3.8, Chloride 101, Carbon Dioxide 32.0, Anion Gap 3 L, BUN 13, Creatinine 0.96, Estim Creat Clear Calc 30.77, Est GFR (MDRD) Af Am er 72, Est GFR (MDRD) Non-Af 60, BUN/Creatinine Ratio 13.5, Glucose 102, Calcium 8.8, Troponin I High Sens 8 10/17/23 10:38: D-Dimer Quant (PE/DVT) 0.43 Micro: Microbiology 10/17/23 14:31 Mucosa - Nasopharyngeal Respiratory Panel (PCR) - Final 10/17/23 16:20 Urine, Clean Catch Legionella Antigen - Final 10/17/23 16:20 Urine, Clean Catch Streptococcus pneumoniae Antigen (M - Final Imagaing Radiology Impression Chest X-Ray 10/17/23 10:15 IMPRESSION: Findings suggestive of a chronic interstitial scarring worse at the lung bases with a superimposed infiltrate in the right lower lobe. Electronically Signed: Ron Lassiter MD at 10:33 EST , Assessment & Plan Assessment/Plan (1) Pneumonia: PLAN: Plan 1. Right lower lobe community-acquired pneumonia-patient was admitted she will receive IV Zithromax and Rocephin, urine antigen for Legionella and strep will be obtained, respiratory panel will be obtained #2 acute exacerbation of COPD-patient will be maintained on IV Solu-Medrol and aggressive aerosol treatments #3 chronic hypoxic respiratory failure-patient's pulse ox will be monitored Total clinical time spent by myself addressing the patient's medical issues, reviewing all of her data, and collaborating with patient's care team: 55 minutes Charges/Coding Visit Charges Inpatient E&M: 20155 Init Hosp L2
[2023-10-17] MEDS: hydrOXYzine PAM 25 MG Capsule 50 MG PO (18:29)
[2023-10-17] MEDS: guaiFENesin 1,200 MG Tablet 1200 MG PO (21:29)
[2023-10-17] MEDS: Heparin Injection (Vial) 5,000 UNIT/ML VIAL 5000 UNIT SC (21:30)
[2023-10-18] VITALS (12 sets, daily range): BP systolic 100–122; BP diastolic 68–73; PULSE 87–122; RESP 16–20; TEMP 36.4–36.8; O2SAT 91–97
[2023-10-18 05:30] LABS: Absolute Lymphocyte Count 0.29 X10^3/uL (0.83-4.51); Absolute Neutrophil Count 8.9 X10^3/uL (2.0-7.7); Hematocrit 38.2 % (37-47); Hemoglobin 12.8 g/dL (12.0-15.0); Lymphocyte # 0.29 X10^3/ul (0.83-4.51); Mean Corp Hgb Conc 33.5 g/dL (32-36); Mean Corpuscular Hgb 29.1 pg (27.0-32.0); Mean Corpuscular Volume 86.8 fL (81-99); Mean Platelet Vol. 8.7 fl (6.2-12.0); Monocyte# 0.39 X10^3/uL; Monocyte% 4.1 % (0-10); NRBC Flagged by Analyzer 0 % (0-5); Neutrophil # 8.85 X10^3/uL (2.7-7.7); Neutrophil % 92.5 % (47-70); POSITIVE DIFFERENTIAL YES; Platelet Count 268 K/mm3 (150-450); RBC Distribution Width CV 13.4 % (11.6-14.6); RBC Distribution Width SD 42.5 fl (35.1-43.9); White Blood Count 9.6 K/mm3 (4.4-11.0)
[2023-10-18 05:44] LABS: Differential Indicated SCAN CRITERIA MET
[2023-10-18 06:09] LABS: Differential Comment SCANNED
[2023-10-18] MEDS: Ipratropium/Albuterol Sulfate 3 ML AMPUL.NEB INHALATION ×4 (07:42→19:49)
[2023-10-18] MEDS: Heparin Injection (Vial) 5,000 UNIT/ML VIAL 5000 UNIT SC ×2 (09:26→23:50)
[2023-10-18] MEDS: Aspirin 81 MG TAB.CHEW PO (09:26)
[2023-10-18] MEDS: guaiFENesin 1,200 MG Tablet 1200 MG PO ×2 (09:27→23:51)
[2023-10-18] MEDS: Ceftriaxone 1 GM/50 ML BAG IV (09:27)
[2023-10-18] MEDS: Lisinopril 2.5 MG Tablet PO (09:27)
[2023-10-18] MEDS: Azithromycin 500 MG in Dextrose 5%-Water (250mL Bag) 250 ML 250 MG IV (10:50)
--- NOTE | 2023-10-18 10:52 | CASEMGMT ---
PADDY MAYS Assessment: Face to Face with pt for initial transition planning/care coordination assessment. PADDY MAYS introduced self and role at [facility], pt voices understanding and consents to assessment. Pt is A&O x4 and answers all questions appropriately at this time. Pt sitting up in bed in no distress with oxygen on. Care providers, pharmacy, and demographics verified/updated. Admitting Dx: pneumonia, exac COPD PCP:Dinora Specialists:Nora Olson pulm Preferred Pharmacy: [facility] Insurance: [employer] [facility] Prescription Benefit: yes LNOK: Rich Soria, Living Arrangements: Pt lives with in a mobile home with 3 steps to enter. Pt reports she is I in ADL's and denies concerns at home. Transportation: Pt drives self and denies concerns with transportation. DME:nebulizer, pox, oxygen through [employer], portable oxygen tanks- pt family to bring in upon dc. HHC/SNF: Denies hx of Pt states no concerns with going home at time of dc. Email to [employer] to verify oxygen rx. Discussed Pt Link with pt, she is not interested in this. Pt states no further concerns/needs. CM to follow. Advised pt to ask CM if any further question/concerns/needs arise, voices understanding. Pt Goal: Home Plan: Home, follow for oxygen rx change
--- NOTE | 2023-10-18 14:08 | PN.HOSP_ITS ---
Reason for Visit Reason for Visit: Diagnoses Pneumonia, unspecified organism (10/17/23) Subjective Subjective Patient was seen and examined today, she remains on 4 L of oxygen, her white blood cell count is normal. Objective Data Objective Data Vital Signs: Vital Signs Temp Pulse Resp BP Pulse Ox O2 Del Method O2 Flow Rate 97.8 F 122 H 18 100/68 92 Nasal Cannula 4 10/18/23 08:40 10/18/23 11:42 10/18/23 11:42 10/18/23 08:40 10/18/23 11:42 10/18/23 11:42 10/18/23 11:42 Oxygen Flow Rate (L/min) 4 Oxygen Delivery Method Nasal Cannula Weight: 38.3 kg Body Mass Index (BMI) 16.5 Intake & Output: Intake and Output for Last 24 Hours 10/16/23 10/17/23 10/18/23 23:59 23:59 23:59 Intake Total 305 / 455 1455 / 1455 Balance 305 / 455 1455 / 1455 Medical Nutrition Assessment Dietitian: Malnutrition Criteria Met Start: 10/18/23 12:06 Freq: Status: Active Protocol: Document 10/18/23 12:06 LEONOR (Rec: 10/18/23 12:07 SLA Desktop) Nutrition Malnutrition Evidence of Malnutrition Exists Yes Malnutrition (severe): Chronic Evidenced By Suboptimal Energy Intake ( Severe),Weight Loss (Severe), Physical Changes (Severe) Clinical Problem Chronic Disease or Condition Related Malnutrition Etiology related to increased pearl/pro needs r/t COPD and inadequate energy intake Signs/Symptoms as evidenced by BMI 16.5 kg, inability to gain wt in past two years and pt meeting <75% of est nutritional needs. Pt w/ obvious fat/muscle loss throughout body. Status Active Problem Recommendation Dietitian Recommendations/Changes Will continue Regular diet as ordered - pt does not want fortified foods now. Encouraged pt to ask nsg staff for snacks between meals - order updated to include snacks tid between meals. Will continue ensure compact tid w/ medpass as ordered Continue to monitor for changes in pt nutritional status and make adjustments as needed. Lab / Micro Data 10/18/23 04:41 10/17/23 09:10 Labs: Laboratory Results - last 24 hr 10/18/23 04:41: WBC 9.6, RBC 4.40, Hgb 12.8, Hct 38.2, MCV 86.8, MCH 29.1, MCHC 33.5, RDW Std Deviation 42.5, RDW Coeff of Carter 13.4, Plt Count 268, MPV 8.7, Immature Gran % (Auto) 0.400, Neut % (Auto) 92.5 H, Lymph % (Auto) 3.0 L, Gilliam % (Auto) 4.1, Eos % (Auto) 0.0, Baso % (Auto) 0.0, Absolute Neuts (auto) 8.9 H, Absolute Lymphs (auto) 0.29 L, Nucleated RBC % 0, Differential Comment SCANNED Micro: Microbiology 10/17/23 14:31 Mucosa - Nasopharyngeal Respiratory Panel (PCR) - Final 10/17/23 16:20 Urine, Clean Catch Legionella Antigen - Final 10/17/23 16:20 Urine, Clean Catch Streptococcus pneumoniae Antigen (M - Final Physical Exam Narrative alert, oriented x3 and no apparent distress Constitutional Narrative: Patient appears cachectic General Appearance: cooperative, well kempt and well developed Orientation / Consciousness: awake, oriented to person, oriented to place and oriented to time HEENT normocephalic, head/scalp atraumatic, hearing grossly normal bilaterally and moist oral mucous membranes Eyes PERRL, EOMs intact bilaterally and conjunctivae normal Neck supple, no JVD, thyroid normal and no carotid bruits General: trachea midline Resp normal respiratory effort, no retractions and no use of accessory muscles Resp Narrative: Decreased breath sounds are noted bilaterally with occasional expiratory wheezes noted over both lung Auscultation: wheezes; Negative for rales or rhonchi Cardio regular rate, regular rhythm, S1 normal heart sound, S2 normal heart sound, no murmurs, no rub and no gallops GI normal to inspection, nondistended, normoactive bowel sounds, soft to palpation, non-tender and non-distended Extremity no clubbing, cyanosis or edema Skin no rashes or lesions noted General Skin Exam: no breakdown Neuro oriented x3, CN's II-XII intact bilaterally, moves all extremities, no focal mot or deficits and no sensory deficits noted Sensorium / Orientation: awake and alert Speech: speech normal Psych affect normal Assessment & Plan Assessment/Plan (1) Pneumonia: PLAN: Plan 1. Right lower lobe community-acquired pneumonia-patient will remain on Zithromax and Rocephin, white blood cell count was normal #2 acute exacerbation of COPD-patient will be maintained on IV Solu-Medrol and aggressive aerosol treatments #3 chronic hypoxic respiratory failure-patient's pulse ox will be monitored Total clinical time spent by myself addressing the patient's medical issues, reviewing all of her data, and collaborating with patient's care team: 25 minutes Charges/Coding Visit Charges Inpatient E&M: 20208 Subs Hosp L1
[2023-10-18] MEDS: 0.9% Saline Lock 10 ML Syringe IV ×2 (14:37→23:55)
[2023-10-18] MEDS: hydrOXYzine PAM 25 MG Capsule 50 MG PO ×2 (14:37→23:51)
[2023-10-19] VITALS (14 sets, daily range): BP systolic 113–146; BP diastolic 67–90; PULSE 97–117; RESP 18–20; TEMP 36.4–36.9; O2SAT 90–94
[2023-10-19] MEDS: 0.9% Saline Lock 10 ML Syringe IV (06:24)
[2023-10-19] MEDS: Ipratropium/Albuterol Sulfate 3 ML AMPUL.NEB INHALATION ×4 (07:07→20:08)
[2023-10-19] MEDS: Heparin Injection (Vial) 5,000 UNIT/ML VIAL 5000 UNIT SC ×2 (09:10→20:49)
[2023-10-19] MEDS: guaiFENesin 1,200 MG Tablet 1200 MG PO ×2 (09:23→20:51)
[2023-10-19] MEDS: Lisinopril 2.5 MG Tablet PO (09:23)
[2023-10-19] MEDS: Aspirin 81 MG TAB.CHEW PO (09:23)
[2023-10-19] MEDS: Ceftriaxone 1 GM/50 ML BAG IV (09:24)
[2023-10-19] MEDS: Oxymetazoline 0.05% 1 SPRAY SPRAY.BTL NASAL ×2 (11:07→20:49)
[2023-10-19] MEDS: Azithromycin 500 MG in Dextrose 5%-Water (250mL Bag) 250 ML 250 MG IV (11:08)
--- NOTE | 2023-10-19 15:29 | PN.HOSP_ITS ---
Reason for Visit Reason for Visit: Diagnoses Pneumonia, unspecified organism (10/17/23) Subjective Subjective Seen and examined today, she does complain of some nasal congestion today. No increased shortness of breath. Objective Data Objective Data Vital Signs: Vital Signs Temp Pulse Resp BP Pulse Ox O2 Del Method O2 Flow Rate 98.4 F 106 H 18 113/67 92 Nasal Cannula 3 10/19/23 14:41 10/19/23 14:41 10/19/23 14:41 10/19/23 14:41 10/19/23 14:41 10/19/23 14:41 10/19/23 14:41 FiO2 93 10/19/23 07:08 Oxygen Flow Rate (L/min) 3 Oxygen Delivery Method Nasal Cannula Weight: 38.3 kg Body Mass Index (BMI) 16.5 Intake & Output: Intake and Output for Last 24 Hours 10/17/23 10/18/23 10/19/23 23:59 23:59 23:59 Intake Total 305 / 455 2205 / 2205 305 / 305 Balance 305 / 455 2205 / 2205 305 / 305 Medical Nutrition Assessment Dietitian: Malnutrition Criteria Met Start: 10/18/23 12:06 Freq: Status: Active Protocol: Document 10/18/23 12:06 SLA (Rec: 10/18/23 12:07 SLA Desktop) Nutrition Malnutrition Evidence of Malnutrition Exists Yes Malnutrition (severe): Chronic Evidenced By Suboptimal Energy Intake ( Severe),Weight Loss (Severe), Physical Changes (Severe) Clinical Problem Chronic Disease or Condition Related Malnutrition Etiology related to increased pearl/pro needs r/t COPD and inadequate energy intake Signs/Symptoms as evidenced by BMI 16.5 kg, inability to gain wt in past two years and pt meeting <75% of est nutritional needs. Pt w/ obvious fat/muscle loss throughout body. Status Active Problem Recommendation Dietitian Recommendations/Changes Will continue Regular diet as ordered - pt does not want fortified foods now. Encouraged pt to ask nsg staff for snacks between meals - order updated to include snacks tid between meals. Will continue ensure compact tid w/ medpass as ordered Continue to monitor for changes in pt nutritional status and make adjustments as needed. Lab / Micro Data 10/18/23 04:41 10/17/23 09:10 Micro: Microbiology 10/17/23 14:31 Mucosa - Nasopharyngeal Respiratory Panel (PCR) - Final 10/17/23 16:20 Urine, Clean Catch Legionella Antigen - Final 10/17/23 16:20 Urine, Clean Catch Streptococcus pneumoniae Antigen (M - Final Physical Exam Narrative alert, oriented x3 and no apparent distress Constitutional Narrative: Patient appears cachectic General Appearance: cooperative, well kempt and well developed Orientation / Consciousness: awake, oriented to person, oriented to place and or iented to time HEENT normocephalic, head/scalp atraumatic, hearing grossly normal bilaterally and moist oral mucous membranes Eyes PERRL, EOMs intact bilaterally and conjunctivae normal Neck supple, no JVD, thyroid normal and no carotid bruits General: trachea midline Resp normal respiratory effort, no retractions and no use of accessory muscles Resp Narrative: Decreased breath sounds are noted bilaterally with occasional expiratory wheezes noted over both lung Auscultation: wheezes; Negative for rales or rhonchi Cardio regular rate, regular rhythm, S1 normal heart sound, S2 normal heart sound, no murmurs, no rub and no gallops GI normal to inspection, nondistended, normoactive bowel sounds, soft to palpation, non-tender and non-distended Extremity no clubbing, cyanosis or edema Skin no rashes or lesions noted General Skin Exam: no breakdown Neuro oriented x3, CN's II-XII intact bilaterally, moves all extremities, no focal motor deficits and no sensory deficits noted Sensorium / Orientation: awake and alert Speech: speech normal Psych affect normal Assessment & Plan Assessment/Plan (1) Pneumonia: PLAN: Plan 1. Right lower lobe community-acquired pneumonia-patient will remain on Zithromax and Rocephin #2 acute exacerbation of COPD-patient will be maintained on IV Solu-Medrol and aggressive aerosol treatments #3 chronic hypoxic respiratory failure-patient's pulse ox will be monitored #4 chronic protein and caloric malnutrition-related to increased caloric and protein needs as a result of COPD and inadequate energy intake as evidenced by BMI of 16.5 and inability to gain weight in the past 2 years and patient meeting less than 75% of estimated nutritional needs. Patient has obvious fat/muscle loss throughout the body-regular diet will be continued, Ensure compact 3 times daily with med Pass will be given. Total clinical time spent by myself addressing the patient's medical issues, reviewing all of her data, and collaborating with patient's care team: 25 minutes Charges/Coding Visit Charges Inpatient E&M: 89136 Subs Hosp L1
[2023-10-19] MEDS: hydrOXYzine PAM 25 MG Capsule 50 MG PO (21:04)
[2023-10-20 02:57] VITALS: BP 124/75; PULSE 102; RESP 18; TEMP 36.8; O2SAT 92
[2023-10-20 05:35] VITALS: BP 125/82; PULSE 108; RESP 18; TEMP 36.6; O2SAT 92
[2023-10-20] MEDS: Ipratropium/Albuterol Sulfate 3 ML AMPUL.NEB INHALATION (06:57)
[2023-10-20 06:58] VITALS: PULSE 101; RESP 20; O2SAT 94
[2023-10-20 08:52] VITALS: BP 135/72; PULSE 120; RESP 20; TEMP 36.9; O2SAT 92
[2023-10-20] MEDS: Lisinopril 2.5 MG Tablet PO (08:55)
[2023-10-20] MEDS: Heparin Injection (Vial) 5,000 UNIT/ML VIAL 5000 UNIT SC (08:55)
[2023-10-20] MEDS: guaiFENesin 1,200 MG Tablet 1200 MG PO (08:55)
[2023-10-20] MEDS: Aspirin 81 MG TAB.CHEW PO (08:55)
[2023-10-20] MEDS: Oxymetazoline 0.05% 1 SPRAY SPRAY.BTL NASAL (08:55)
[2023-10-20] MEDS: Ceftriaxone 1 GM/50 ML BAG IV (09:02)
--- NOTE | 2023-10-20 09:22 | PCM.DC ---
Discharge Instructions Diet Discharge Diet: No restrictions Activity Discharge Activity: Return to Normal Activity Weight Bearing Status: Full weight bearing Follow Up Care Test Results: Test results from this visit will be discussed in further detail at your follow-up appointment, if applicable. Discharge Plan Admission Admit Date/Time: 10/17/23 11:49 Primary Reason for Your Visit: pneumonia Attending Provider: Otoniel Ervin Primary Care Provider: Molly Farias Discharge Orders/Prescriptions Prescriptions: New hydroxyzine HCl 25 mg tablet 25 mg PO QHS PRN (Reason: sleep) Qty: 60 0RF Rx Instructions: use one or two capsules at bedtime as needed for sleep levofloxacin 750 mg tablet 750 mg PO DAILY Qty: 7 0RF Rx Instructions: one daily starting 10/21/23 prednisone 20 mg tablet 40 mg PO DAILY Qty: 15 0RF Rx Instructions: two daily for 5 days, then one daily for 5 days, then stop Continued Multi Complete with Iron 18-400 mg-mcg Tablet 1 tab PO DAILY aspirin 81 mg Tablet,Chewable 81 mg PO BREAKFAST 30 Days Qty: 30 1RF guaifenesin [Mucinex] 1,200 mg tablet extended release 12hr 1,200 mg PO BID ipratropium bromide 0.02 % solution 2.5 ml inhalation Q6H PRN (Reason: SHORTNESS OF BREATH ) Qty: 62.5 1RF albuterol sulfate 2.5 mg /3 mL (0.083 %) solution for nebulization 2.5 mg inhalation Q4H PRN (Reason: SHORTNESS OF BREATH/WHEEZING ) 30 Days Qty: 180 11RF albuterol sulfate 90 mcg/actuation HFA aerosol inhaler 2 inh INHALATION Q4H PRN (Reason: SHORTNESS OF BREATH/WHEEZING ) Qty: 3 6RF Trelegy Ellipta 100-62.5-25 mcg blister with device 1 ea INHALATION DAILY Qty: 3 3RF benzonatate 200 mg capsule 200 mg PO TID PRN (Reason: COUGH ) Qty: 90 3RF lisinopril 2.5 mg tablet 2.5 mg PO DAILY Qty: 90 3RF (DME) Nebulizer tubing/equipment See Rx Instructions .ROUTE .MEDSUPPLY Qty: 1 6RF Rx Instructions: As directed Referrals / Follow Up: Molly Farias DO [Primary Care Provider] - Within 1 Month Osiris Vanegas MASTER CONTROL TECHNICIAN, MASTER CONTROL TECHNICIAN-C [Med Staff - Adv Practice Prof] - See Referral Note (in two weeks) Disposition Disposition (needs filled in before D/C Order can be placed): Home, Self Care
[2023-10-20] MEDS: Azithromycin 500 MG in Dextrose 5%-Water (250mL Bag) 250 ML 250 MG IV (09:53)
--- NOTE | 2023-10-20 09:57 | DS.PCM_ITS ---
Providers Date of Admission: 10/17/23 Date of Discharge: 10/20/23 Primary Care Physician: Dr. Molly Farias, DO Reason For Visit: PNEUMONIA, EXACERBATION OF COPD Diagnosis Discharge Diagnosis (1) Pneumonia: Status: Acute Code(s): J18.9 - Pneumonia, unspecified organism Plan 1. Right lower lobe community-acquired pneumonia-patient will remain on Zithromax and Rocephin #2 acute exacerbation of COPD-patient will be maintained on IV Solu-Medrol and aggressive aerosol treatments #3 chronic hypoxic respiratory failure-patient's pulse ox will be monitored #4 chronic protein and caloric malnutrition-related to increased caloric and protein needs as a result of COPD and inadequate energy intake as evidenced by BMI of 16.5 and inability to gain weight in the past 2 years and patient meeting less than 75% of estimated nutritional needs. Patient has obvious fat/muscle loss throughout the body-regular diet will be continued, Ensure compact 3 times daily with med Pass will be given. Total clinical time spent by myself addressing the patient's medical issues, reviewing all of her data, and collaborating with patient's care team: 25 minutes Medications at Discharge Home Medications multivitamin-ferrous fumarate-folic acid 18 mg-400 mcg tablet (Multi Complete with Iron) 1 tab PO DAILY HEALTH MAINTENANCE 01/31/22 aspirin 81 mg chewable tablet 81 mg PO BREAKFAST HEART HEALTH 30 days #30 tabs 02/01/22 albuterol sulfate 2.5 mg/3 mL (0.083 %) solution for nebulization 2.5 mg (3 mL) inhalation Q4H PRN SHORTNESS OF BREATH/WHEEZING 30 days #180 mL 12/05/22 albuterol sulfate 90 mcg/actuation aerosol inhaler 2 inh inhalation Q4H PRN SHORTNESS OF BREATH/WHEEZING #3 ea 01/10/23 fluticasone fur. 100 mcg-umeclid 62.5 mcg-vilant 25 mcg inhalat.powder (Trelegy Ellipta) 1 ea inhalation DAILY COPD #3 ea 01/10/23 benzonatate 200 mg capsule 200 mg PO TID PRN COUGH #90 caps 02/28/23 lisinopril 2.5 mg tablet 2.5 mg PO DAILY BLOOD PRESSURE #90 tabs 05/22/23 Nebulizer tubing/equipment #1 ea 05/24/23 guaifenesin 1,200 mg tablet, extended release 12 hr (Mucinex) 1,200 mg PO BID CONGESTION 10/11/23 ipratropium bromide 0.02 % solution for inhalation 2.5 ml inhalation Q6H PRN SHORTNESS OF BREATH #62.5 mL 10/11/23 hydroxyzine HCl 25 mg tablet 25 mg PO QHS PRN sleep #60 tabs 10/20/23 levofloxacin 750 mg tablet 750 mg PO DAILY #7 tabs 10/20/23 prednisone 20 mg tablet 40 mg (2 x 20 mg) PO DAILY #15 tabs 10/20/23 Hospital Course Operations None Procedures None Summary of Care Provided Minutes Spent on Discharge: 31 Hospital Course: This 78-year-old white female was seen in the emergency room at [facility] with complaints of cough, chills, and shortness of breath over 48 hours. Patient has home O2 but only uses it as needed, she had been seen in the emergency room on 10/11/2023 for exacerbation of COPD and had been seen in an urgent care center 5 days previously and had been started on a prednisone taper and doxycycline. Patient was discharged from her emergency room visit on 10/11/2020 through with instructions to follow-up with her PCP and remain on prednisone and doxycycline. Workup in the emergency room included a chest x-ray which showed findings suggestive of a chronic interstitial scarring worse at the lung bases with a superimposed infiltrate in the right lower lobe. Patient was admitted to [place] [address] for acute exacerbation of COPD and right lower lobe pneumonia, she was treated with IV Zithromax and Rocephin and placed on IV corticosteroids, patient's breathing improved during her hospital stay, the etiology of her pneumonia was not determined, her urine antigen studies were negative and her COVID and flu test was negative. On 10/20/2023, patient was seen and examined: On examination she appeared older than her stated age, she appeared cachectic, she does not appear to be in any distress. Vital signs as documented. Skin warm and dry and without overt rashes. Neck without JVD, thyroid appears normal, trachea is midline, neck is supple. Lungs there were scattered expiratory wheezes noted over both lungs but these were minimal, normal air movement was noted. Heart exam notable for regular rhythm, normal sounds and absence of murmurs, rubs or gallops. Abdomen unremarkable and without evidence of organomegaly, masses, or abdominal aortic enlargement, bowel sounds are present in all 4 quadrants, no abdominal tenderness was noted. Extremities nonedematous, no cyanosis was noted, no clubbing was noted. Neuro: Cranial nerves II through XII are grossly intact, no focal motor deficits were noted, sensation to light touch and pinprick is intact, motor exam 5/5 throughout. Psych: Patient is alert and oriented x3, she does not appear anxious or depressed, she does not appear agitated. Patient was discharged home in stable condition on 10/20/2023, she was instructed to follow-up with her aromatherapist as an outpatient within the next 2 weeks. Medical Records Data Medical Nutrition Assessment Dietitian: Malnutrition Criteria Met Start: 10/18/23 12:06 Freq: Status: Active Protocol: Document 10/18/23 12:06 [facility] (Rec: 10/18/23 12:07 [facility] Desktop) Nutrition Malnutrition Evidence of Malnutrition Exists Yes Malnutrition (severe): Chronic Evidenced By Suboptimal Energy Intake ( Severe),Weight Loss (Severe), Physical Changes (Severe) Clinical Problem Chronic Disease or Condition Related Malnutrition Etiology related to increased pearl/pro needs r/t COPD and inadequate energy intake Signs/Symptoms as evidenced by BMI 16.5 kg, inability to gain wt in past two years and pt meeting <75% of est nutritional needs. Pt w/ obvious fat/muscle loss throughout body. Status Active Problem Recommendation Dietitian Recommendations/Changes Will continue Regular diet as ordered - pt does not want fortified foods now. Encouraged pt to ask nsg staff for snacks between meals - order updated to include snacks tid between meals. Will continue ensure compact tid w/ medpass as ordered Continue to monitor for changes in pt nutritional status and make adjustments as needed. Weight / BMI Weight Weight: 38.3 kg Body Mass Index (BMI) 16.5 ABG / Lab / Microbiology Data 10/18/23 04:41 10/17/23 09:10 Microbiology: Microbiology 10/17/23 14:31 Mucosa - Nasopharyngeal Respiratory Panel (PCR) - Final 10/17/23 16:20 Urine, Clean Catch Legionella Antigen - Final 10/17/23 16:20 Urine, Clean Catch Streptococcus pneumoniae Antigen (M - Final D/C Instructions Discharge Diet: No restrictions Weight Bearing Status: Full weight bearing Meaningful Use Info Meaningful Use Diagnoses (Choose all that apply): None applicable Discharge Plan Admission Admit Date/Time: 10/17/23 11:49 Primary Reason for Your Visit: pneumonia Attending Provider: Otoniel Ervin Primary Care Provider: Molly Farias Discharge Orders/Prescriptions Prescriptions: New hydroxyzine HCl 25 mg tablet 25 mg PO QHS PRN (Reason: sleep) Qty: 60 0RF Rx Instructions: use one or two capsules at bedtime as needed for sleep levofloxacin 750 mg tablet 750 mg PO DAILY Qty: 7 0RF Rx Instructions: one daily starting 10/21/23 prednisone 20 mg tablet 40 mg PO DAILY Qty: 15 0RF Rx Instructions: two daily for 5 days, then one daily for 5 days, then stop Continued Multi Complete with Iron 18-400 mg-mcg Tablet 1 tab PO DAILY aspirin 81 mg Tablet,Chewable 81 mg PO BREAKFAST 30 Days Qty: 30 1RF guaifenesin [Mucinex] 1,200 mg tablet extended release 12hr 1,200 mg PO BID ipratropium bromide 0.02 % solution 2.5 ml inhalation Q6H PRN (Reason: SHORTNESS OF BREATH ) Qty: 62.5 1RF albuterol sulfate 2.5 mg /3 mL (0.083 %) solution for nebulization 2.5 mg inhalation Q4H PRN (Reason: SHORTNESS OF BREATH/WHEEZING ) 30 Days Qty: 180 11RF albuterol sulfate 90 mcg/actuation HFA aerosol inhaler 2 inh INHALATION Q4H PRN (Reason: SHORTNESS OF BREATH/WHEEZING ) Qty: 3 6RF Trelegy Ellipta 100-62.5-25 mcg blister with device 1 ea INHALATION DAILY Qty: 3 3RF benzonatate 200 mg capsule 200 mg PO TID PRN (Reason: COUGH ) Qty: 90 3RF lisinopril 2.5 mg tablet 2.5 mg PO DAILY Qty: 90 3RF (DME) Nebulizer tubing/equipment See Rx Instructions .ROUTE .MEDSUPPLY Qty: 1 6RF Rx Instructions: As directed Referrals / Follow Up: Molly Farias DO [Primary Care Provider] - Within 1 Month Osiris Vanegas NP, STRATEGIC ACCOUNT MANAGER-C [Med Staff - [facility] Practice Prof] - See Referral Note (in two weeks) Disposition Disposition (needs filled in before D/C Order can be placed): Home, Self Care Charges/Coding Visit Charges Inpatient E&M: 54981 Disch Hosp >30min
== END 2023-10-20 11:17 | disposition home or self-care (01) | DRG 190 ==
LOC: ED 11:45 → MS3 14:58
PROVIDERS: Admitting Provider Internal Medicine; Emergency Provider Emergency Medicine; PCP Family Medicine; Referring Provider Emergency Medicine; Visit Provider Internal Medicine
DX: J44.1 Chronic obstructive pulmonary disease with (acute) exacerbation (principal); J18.9 Pneumonia, unspecified organism; E46 Unspecified protein-calorie malnutrition; J96.11 Chronic respiratory failure with hypoxia; Z68.1 Body mass index [BMI] 19.9 or less, adult; Z99.81 Dependence on supplemental oxygen; J44.0 Chronic obstructive pulmonary disease with (acute) lower respiratory infection; I10 Essential (primary) hypertension; I25.10 Atherosclerotic heart disease of native coronary artery without angina pectoris; F17.210 Nicotine dependence, cigarettes, uncomplicated; I25.2 Old myocardial infarction; Z79.51 Long term (current) use of inhaled steroids; Z79.82 Long term (current) use of aspirin
CPT/HCPCS: 36415; 71046; 80048; 84484; 85025; 85379; 87449; 87633; 93005; 94640; 94668; 97802; 99284; J7040; A4216; J0696

== ENCOUNTER → 2024-03-20 | Outpatient (CLI) | payer MEDICARE, SELFPAY ==
--- NOTE | 2024-03-20 06:39 | CT_ITS ---
STUDY: LOW DOSE CT LUNG CANCER SCREENING REASON FOR EXAM: Female, 78 years old. One pack per day smoker x48 years RADIATION DOSAGE (If Supplied By Facility): CTDIvol = ( 1.29 ) mGy, DLP = ( 45.26 ) mGycm TECHNIQUE: No contrast was administered. Low dose technique was utilized (average mAS-38 and kVp 120). 1.25 mm axial source images with a slice interval of 1.25-mm were reconstructed in lung windows. 2.5 mm axial source images with a slice interval of 2.5-mm were reconstructed in lung windows. 5.0 mm axial source images with a slice interval of 5.0-mm were reconstructed in soft tissue windows. COMPARISON: 02/01/2023 FINDINGS: There is severe underlying emphysema unchanged from the previous examination with stable fibrotic scarring in both apices, more pronounced in the right lung than the left. Emphysematous blebs are noted throughout both lung henson with nonspecific pleural thickening in both hemithoraces and fibrotic scarring in the lung bases. There is no organized infiltrate, or effusion. No suspicious noncalcified mass or nodule. Limited soft tissue windows show normal-appearing thyroid gland. No suspicious bulky mediastinal or perihilar lymph nodes. The thoracic aorta is ectatic without aneurysmal dilatation. There are calcified coronary vessels. Limited cuts of the upper abdomen do not show a suspicious abnormality. Bony structures show degenerative change Overall, no significant interval change since the previous study CT/Low Dose CT Lung Screening IMPRESSION: Lung-RADS category 2 - Continue annual screening with LDCT in 12 months. IMPORTANT NOTES FOR USE: ACR Lung-RADS Version 1.1 Assessment Categories Release Date: 2018 Category: Coded 0-4 bases on nodule(s) with highest degree of suspicion. Negative screen is defined as categories 1 and 2; a positive screen is defined as categories 3 and 4. Category 3 and 4A nodules that are unchanged on interval CT should be coded as category 2, and individuals returned to screening in 12 months. Category 4X: Category 3 or 4 nodules with additional imaging findings that increase the suspicion of lung cancer, such as spiculation, GGN that doubles in size in 1 year, enlarged lymph notes, etc. Category Modifiers: S (significant finding unrelated to lung cancer) Electronically Signed: Eduardo Raman MD at 8:43 EDT ,
== END | disposition home or self-care (01) ==
LOC: CT 06:39
PROVIDERS: PCP Family Medicine; Referring Provider Nurse Practitioner Acute Care; Visit Provider Nurse Practitioner Acute Care
DX: F17.210 Nicotine dependence, cigarettes, uncomplicated (principal)
CPT/HCPCS: 71271

== ENCOUNTER 2024-05-20 19:31 | Emergency (ER) | payer MEDICARE, SELFPAY ==
[2024-05-20] VITALS (8 sets, daily range): BP systolic 100–141; BP diastolic 70–80; PULSE 100–310; RESP 17–23; TEMP 36–36.4; O2SAT 94–98; BMI 17.7
--- NOTE | 2024-05-20 19:51 | EKG12_ITS ---
Test Reason : SOB Blood Pressure : / mmHG Vent. Rate : 102 BPM Atrial Rate : 102 BPM P-R Int : 120 ms QRS Dur : 066 ms QT Int : 330 ms P-R-T Axes : 076 044 081 degrees QTc Int : 430 ms Sinus tachycardia Nonspecific ST abnormality Abnormal ECG Confirmed by RADU MOSER, PERRI ([id number]), editorial manager VERENICE NYE ([id number]) on 05/27/2024 10:34:16 A M Referred By: ZHAO Confirmed By:MICKY LOVELACE MD
--- NOTE | 2024-05-20 20:03 | ED.VIS.DYS ---
HPI History of Present Illness Chief Complaint: Shortness of Breath Informant: patient Onset/Context/Timing Onset: Days Context: gradual Timing: Continuous Quality: Positive for Wheezing Current Severity: Mild Maximum Severity: Mild Worsened by: Exertion and Coughing Relieved by: Rest and Oxygen Associated Symptoms cough and white sputum; Negative for fever or sore throat Chest Pain: Positive for None Narrative Narrative: 79-year-old female history of COPD diagnosed January of this year. She is on 2 L oxygen at home which she has been using more recently. Denies any chest pain. No fever. She has a chronic cough of white sputum is not new or changed. She denies any leg pain or swelling. No travel or surgery or immobilization. No history of DVT or PE. No hemoptysis. She is wheezing more. PE Risk Factors: Negative for Cancer, OCP + Smoking + > 35, Prior DVT or PE, Recent immobilization, Recent surgery or Recent travel Prior similar symptoms: Yes Recent Illness/Hospitalization: No PFSH PFSH Medical History On home oxygen therapy Hypertension Pneumonia COPD with acute exacerbation Nicotine dependence, cigarettes, uncomplicated Vitamin D deficiency Psoriasis Chronic insomnia Takotsubo cardiomyopathy Atherosclerotic heart disease of [place] coronary artery without angina pectoris Hernia Kidney stones Smoker COPD (chronic obstructive pulmonary disease) COPD exacerbation NSTEMI, initial episode of assisted Medications ?Medication ?Instructions ?Recorded ?Last Taken ?Type multivitamin-ferrous 1 tab PO DAILY HEALTH MAINTENANCE 01/31/22 10/16/23 History fumarate-folic acid 18 mg-400 mcg tablet (Multi Complete with Iron) aspirin 81 mg chewable tablet 81 mg PO BREAKFAST [facility] 02/01/22 10/16/23 Rx 30 days #30 tabs lisinopril 2.5 mg tablet 2.5 mg PO DAILY BLOOD PRESSURE 05/22/23 10/16/23 Rx #90 tabs Nebulizer tubing/equipment #1 ea 05/24/23 Unknown Rx ipratropium bromide 0.02 % 2.5 ml inhalation Q6H PRN 10/11/23 10/16/23 Rx solution for inhalation SHORTNESS OF BREATH #62.5 mL albuterol sulfate 90 mcg/actuation 2 inh inhalation Q4H PRN SHORTNESS 01/17/24 Unknown Rx aerosol inhaler OF BREATH/WHEEZING #3 ea fluticasone fur. 100 mcg-umeclid 1 ea inhalation DAILY COPD #3 ea 01/29/24 Unknown Rx 62.5 mcg-vilant 25 mcg inhalat.powder (Trelegy Ellipta) albuterol sulfate 2.5 mg/3 mL 2.5 mg (3 mL) inhalation Q4H PRN 04/07/24 Unknown Rx (0.083 %) solution for nebulization SHORTNESS OF BREATH/WHEEZING 30 days #180 mL prednisone 20 mg tablet 40 mg (2 x 20 mg) PO DAILY 7 days 05/20/24 Unknown Rx #14 tabs Allergy/AdvReac Type Severity Reaction Status Date / Time brompheniramine (From Allergy Other Verified 05/20/24 19:31 Bromphenex DM) dextromethorphan (From Allergy Other Verified 05/20/24 19:31 Bromphenex DM) pseudoephedrine (From Allergy Other Verified 05/20/24 19:31 Bromphenex DM) Family History Father COPD (chronic obstructive pulmonary disease) Colon cancer Heart disease Brother COPD (chronic obstructive pulmonary disease) Lung cancer Diabetes Heart disease Hypertension Mother Heart disease Arthritis Brother Lung cancer Brother Lung cancer Son Cancer renal Other Uterine cancer Surgical History H/O hernia repair H/O skin graft Cataract extraction status H/O eye surgery History of bladder surgery H/O: hysterectomy History of left heart catheterization (LHC) (~01/31/22) Social History household members: spouse current occupational status: 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 Shortness of breath. Chronic cough. Review of Systems ROS Unobtainable: Denies due to encephalopathy Constitutional Constitutional ED: Denies chills or fever(s) Eyes Eyes: Denies blurry vision ENT ENT ED: Denies ear pain Cardiovascular Cardiovascular: Denies chest pain Respiratory/Chest Respiratory/Chest: Reports cough and dyspnea Gastrointestinal Gastrointestinal: Denies abdominal pain Genitourinary Genitourinary ED: Denies dysuria Musculoskeletal Musculoskeletal: Denies arthralgias Integumentary Denies abscess Neurologic Neurologic: Denies headache(s) or paresthesias Psychiatric Psychiatric: Denies anxiety or depression Endocrine Endocrinology: Denies cold intolerance Hematologic/Lymphatic Hematologic/Lymphatic: Denies easy bleeding Allergic/Immunologic Allergic/Immunologic ED: Denies mouth swelling EXAM Physical Exam Narrative Exam Narrative: 79-year-old female vital signs are stable. She is afebrile. Pulse ox is 94% on 2 L which is her normal home O2 no hypoxia on oxygen. She does not look septic or toxic she is in no distress. H EENT exam unremarkable. Neck nontender. Lungs prolonged expiratory phase. Expiratory wheezing bilaterally. Equal symmetrical. Consistent with COPD. No rales or rhonchi. Heart tachycardic 110 no murmur. Chest wall ribs nontender. No subcu air. Abdomen soft nontender. Normal bowel sounds currently no hernia or mass. Moving all 4 extremities. Calves are nontender without edema or cords. Back unremarkable. She is awake and alert. Const Vital Signs: 05/20/24 19:32 05/20/24 19:39 05/20/24 20:00 Temperature 96.8 F L Temperature Source Temporal Pulse Rate 310 H Respiratory Rate 18 Respiratory Effort Short of Breath Respiratory Pattern Blood Pressure 136/71 H Blood Pressure Mean 92 Pulse Ox 94 95 Oxygen Delivery Method Nasal Cannula Nasal Cannula Nasal Cannula Oxygen Flow Rate (L/min) 2 2 2 05/20/24 20:08 05/20/24 20:08 05/20/24 20:35 Temperature Temperature Source Pulse Rate 102 H 102 H Respiratory Rate 23 H 18 Respiratory Effort Respiratory Pattern Normal Blood Pressure 141/70 H Blood Pressure Mean 93 Pulse Ox 96 98 Oxygen Delivery Method Nasal Cannula Nasal Cannula Oxygen Flow Rate (L/min) 2 2 05/20/24 21:05 05/20/24 22:00 Temperature Temperature Source Pulse Rate 109 H Respiratory Rate 17 Respiratory Effort Respiratory Pattern Blood Pressure 100/71 115/76 Blood Pressure Mean 80 89 Pulse Ox 97 Oxygen Delivery Method Room Air Oxygen Flow Rate (L/min) Positive well nourished and well developed; Negative for obese, cachectic, contractures or unkempt General Appearance ED: well developed and NAD; Negative for unkempt, cachectic, contractures or pallor Nutritional Appearance: Negative for cachectic or obese HEENT Reports moist mucous membranes; Denies dry mucous membranes atraumatic; Negative for trauma or tenderness Mouth ED: No dry mucous membranes Mouth: No dry mucous membranes Eyes PERRL and EOMs intact bilaterally General Eye ED: Negative for pale conjunctiva or scleral icterus Neck no lymphadenopathy, supple, no meningeal signs and no JVD General: Negative for tenderness Lymph Lymphatic: Negative for other Resp No normal respiratory effort and No clear to auscultation bilaterally Resp Narrative: Prolonged expiratory phase bilaterally. Bilateral expiratory wheezes. No rales or rhonchi. Equal symmetrical. Auscultation: wheezes; Negative for rales or rhonchi Cardio regular rhythm, S1 normal heart sound, S2 normal heart sound and no murmurs; Negative for regular rate Rate: tachycardic GI non-tender, non-distended and no masses Auscultation: normoactive bowel sounds Palpation: soft; Negative for tender, guarding or rebound tenderness present Back/Spine no CVA tenderness and normal to inspection General Back: Negative for CVA tenderness or tenderness Extremity normal to inspection General Extremety ED: Negative for edema, tenderness or other findings General Extremity: Negative for edema or other findings Neuro oriented x3 and CN's II-XII intact bilaterally Sensorium / Orientation: alert, oriented to person, oriented to place and oriented to time; Negative for orientation impaired Speech: speech normal Motor Exam: strength 5/5 throughout Psych mental status grossly normal Appearance: Negative for unkempt Attitude: No agitated Mood & Affect: Negative for depressed, anxious or tearful Thought Process: normal thought process Skin no wounds and skin turgor normal General Skin Exam: Negative for jaundice or pallor Lesions: no lesions Rashes: no rashes Trauma: Negative for abrasion or laceration MDM MDM MDM Narrative Medical decision making narrative: Send 9-year-old female COPD exacerbation. Will be treated with DuoNeb and albuterol aerosols oral prednisone and screening labs chest x-ray and EKG. Clinically ultimately she has a pneumonia. No reason to have a DVT or PE denies cardiac history. Repeat exam at 10:15 PM patient doing much better. She is moving air better. She is not wheezing at this time. She feels much better and she is in no distress. We discussed her care is comfortable being discharged home. She has an inhaler at home. She has a nebulizer with albuterol at home. She will be placed on prednisone 40 mg a day for a week. Use her inhaler or nebulizer. Return if worse. I discussed all test results with her and her . I strongly encouraged her to stop smoking. History & Record Review Discussion w/independent historian: Patient and Family Additional record(s) reviewed:: Prior inpatient record, Prior outpatient record, Prior ED visit and Prior labs Lab Data Attestation: I reviewed the patient's lab results. Lab results narrative: CBC white count is 6 H&H 11.1 and 34. Platelets 286. Electrolytes 3. Normal BUN and creatinine. Glucose 129. Troponin 8. Chest x-ray chronic changes. No pneumonia. No pneumothorax. Labs: Laboratory Results - last 24 hr 05/20/24 19:57 WBC 6.8 RBC 3.73 L Hgb 11.1 L Hct 34.2 L MCV 91.7 MCH 29.8 MCHC 32.5 RDW Std Deviation 45.1 H RDW Coeff of Carter 13.3 Plt Count 286 MPV 8.6 Immature Gran % (Auto) 0.100 Neut % (Auto) 78.7 H Lymph % (Auto) 11.0 L [place] % (Auto) 7.7 Eos % (Auto) 1.5 Baso % (Auto) 1.0 Absolute Neuts (auto) 5.4 Absolute Lymphs (auto) 0.75 L Nucleated RBC % 0 Sodium 139 Potassium 3.7 Chloride 103 Carbon Dioxide 33.0 H Anion Gap 3 L BUN 13 Creatinine 0.60 Estim Creat Clear Calc 38.40 Est GFR (MDRD) Af Amer 124 Est GFR (MDRD) Non-Af 102 BUN/Creatinine Ratio 21.5 H Glucose 129 H Calcium 9.6 Troponin I High Sens 8 Radiography Chest X-Ray - ED: 1 View, Read by ED Physician, Read by Radiologist, Normal, Heart, Lungs, Mediastinum, Bony Structures, No Acute Disease and Chronic Changes Diagnostic Testing: Clinical Impression(s) from Imaging Studies Chest X-Ray 05/20/24 20:15 IMPRESSION: There are no acute findings. Electronically Signed: Santos Hernandez MD at 20:27 EDT , Chest chest x-ray, single view, portable, interpreted both by myself and radiologist shows no acute abnormality. Normal cardiac silhouette. Chronic changes and lung scarring. No pneumonia. No pneumothorax. No effusions. Rhythm Strip Rhythm Strip: Sinus Tach Rate: 102 Ectopy: None EKG Initial EKG: Attestation: I personally reviewed and interpreted this EKG as follows: Interpretation: Sinus Rhythm and No Acute Injury Pattern Comments: Sinus tachycardia rate of 102 no acute signs of [place] or ischemia. Discharge Plan Triage Chief Complaint: Shortness of Breath ED Provider: Js López Dx/Rx/DC Orders Clinical Impression: Acute dyspnea, COPD exacerbation Instructions: ED COPD Flare Prescriptions: New prednisone 20 mg tablet 40 mg PO DAILY 7 Days Qty: 14 0RF No Action Multi Complete with Iron 18-400 mg-mcg Tablet 1 tab PO DAILY aspirin 81 mg Tablet,Chewable 81 mg PO BREAKFAST 30 Days Qty: 30 1RF ipratropium bromide 0.02 % solution 2.5 ml inhalation Q6H PRN (Reason: SHORTNESS OF BREATH ) Qty: 62.5 1RF lisinopril 2.5 mg tablet 2.5 mg PO DAILY Qty: 90 3RF (DME) Nebulizer tubing/equipment See Rx Instructions .ROUTE .MEDSUPPLY Qty: 1 6RF Rx Instructions: As directed albuterol sulfate 90 mcg/actuation HFA aerosol inhaler 2 inh INHALATION Q4H PRN (Reason: SHORTNESS OF BREATH/WHEEZING ) Qty: 3 6RF Trelegy Ellipta 100-62.5-25 mcg blister with device 1 ea INHALATION DAILY Qty: 3 3RF albuterol sulfate 2.5 mg /3 mL (0.083 %) solution for nebulization 2.5 mg inhalation Q4H PRN (Reason: SHORTNESS OF BREATH/WHEEZING ) 30 Days Qty: 180 11RF Primary Care Provider: Molly Farias Referrals: Molly Farias, [Primary Care Provider] - 3-5 Days if not improving Activity Restrictions/Additional Instructions: Return if feeling worse. Use your inhaler or nebulizer at home Prednisone the steroids 40 mg a day for the next 7 days start tomorrow. Prescription sent to your pharmacy. Follow-up with your doctor if not improving or return if worse. Stop smoking. Print Language: Stateless Disposition Disposition: Home, Self Care
[2024-05-20] MEDS: Ipratropium/Albuterol Sulfate 3 ML AMPUL.NEB INHALATION (20:08)
[2024-05-20] MEDS: Albuterol 2.5 MG/3 ML VIAL.NEB. INHALATION (20:08)
[2024-05-20 20:12] LABS: Absolute Lymphocyte Count 0.75 X10^3/uL (0.83-4.51); Absolute Neutrophil Count 5.4 X10^3/uL (2.0-7.7); Basophil# 0.07 X10^3/uL; Eosinophils% 1.5 % (0-5); Hematocrit 34.2 % (37-47); Hemoglobin 11.1 g/dL (12.0-15.0); Lymphocyte # 0.75 X10^3/ul (0.83-4.51); Mean Corp Hgb Conc 32.5 g/dL (32-36); Mean Corpuscular Hgb 29.8 pg (27.0-32.0); Mean Corpuscular Volume 91.7 fL (81-99); Mean Platelet Vol. 8.6 fl (6.2-12.0); Monocyte# 0.53 X10^3/uL; Monocyte% 7.7 % (0-10); NRBC Flagged by Analyzer 0 % (0-5); Neutrophil # 5.38 X10^3/uL (2.7-7.7); Neutrophil % 78.7 % (47-70); Platelet Count 286 K/mm3 (150-450); RBC Distribution Width CV 13.3 % (11.6-14.6); RBC Distribution Width SD 45.1 fl (35.1-43.9); Red Blood Count 3.73 M/mm3 (4.2-5.4); White Blood Count 6.8 K/mm3 (4.4-11.0)
--- NOTE | 2024-05-20 20:15 | RAD_ITS ---
STUDY: XR Chest 1 View 05/20/2024 8:15 PM REASON FOR EXAM: Female, 79 years old. sob COMPARISON: 10/17/2023 TECHNIQUE: XR Chest 1 View FINDINGS: There is no demonstrated pleural abnormality. The lung henson are hyperexpanded. Normal heart size. Normal mediastinum. Normal tino. Prominent appearing increased interstitial lung markings. Normal visualized pulmonary arteries. There is atherosclerotic calcification of the aortic arch with tortuosity. There are diffuse degenerative changes of the visualized thoracic spine. There is degenerative osteoarthritis of the bilateral shoulders. There are no acute findings of the upper abdomen. RAD/Chest 1 View (Portable) IMPRESSION: There are no acute findings. Electronically Signed: Santos Hernandez MD at 20:27 EDT ,
[2024-05-20] MEDS: predniSONE 20 MG Tablet 60 MG PO (20:16)
[2024-05-20 20:30] LABS: Anion Gap 3 (5-15); BUN 13 mg/dL (7-18); BUN/Creat Ratio 21.5 RATIO (10-20); Calcium,Total 9.6 mg/dL (8.5-10.1); Chloride 103 mmol/L (98-107); EST Glomerular Filtration Rate 102 mL/min (>60); Est Glom Filt Rate - Afr Amer 124 mL/min (>60); Glucose 129 mg/dL (74-106); Potassium 3.7 mmol/L (3.5-5.1); Sodium Level 139 mmol/L (136-145); Troponin-I HS 8 pg/mL (3.0-54.0)
== END 2024-05-20 22:40 | disposition home or self-care (01) ==
PROVIDERS: Emergency Provider Emergency Medicine; PCP Family Medicine; Visit Provider Emergency Medicine
DX: R06.00 Dyspnea, unspecified (principal); J44.1 Chronic obstructive pulmonary disease with (acute) exacerbation; I10 Essential (primary) hypertension; F17.210 Nicotine dependence, cigarettes, uncomplicated; I25.10 Atherosclerotic heart disease of native coronary artery without angina pectoris; Z99.81 Dependence on supplemental oxygen; I25.2 Old myocardial infarction; Z79.82 Long term (current) use of aspirin; Z79.899 Other long term (current) drug therapy; Z79.51 Long term (current) use of inhaled steroids; Z90.710 Acquired absence of both cervix and uterus
CPT/HCPCS: 71045; 80048; 84484; 85025; 93005; 94640; 99285; A4216

== ENCOUNTER → 2024-07-01 | Outpatient (CLI) | payer MEDICARE, SELFPAY ==
--- NOTE | 2024-07-01 08:00 | CT_ITS ---
STUDY: CT ABDOMEN AND PELVIS WITH CONTRAST REASON FOR EXAM: Female, 79 years old. Lower abdominal pain. Prior right inguinal hernia repair. RADIATION DOSAGE (If Supplied By Facility): CTDIvol = ( 7.79 ) mGy, DLP = ( 245.82 ) mGycm TECHNIQUE: Transaxial images were obtained from the dome of the diaphragm to the symphysis pubis with oral contrast. Oral and amp; IV Readi-CAT and amp; 70mL Isovue-370 was administered. Sagittal and coronal images were reconstructed. Individualized dose optimization techniques were used for this CT. COMPARISON: None. FINDINGS: Mild degree of increased signal markings at the right lung base suggestive of either atelectasis and/or scarring. No significant coronary calcification is seen. Danae''s lobe of the liver. Normal gallbladder and extrahepatic biliary system. Normal spleen. Normal pancreas. Normal bilateral adrenal glands. Normal right kidney. Normal left kidney. Normal visualized stomach. Normal small intestine. Normal colon. There is non-visualization of the appendix. There is diffuse atherosclerotic calcification of the abdominal aorta, without a demonstrated aneurysm. Normal inferior vena cava. Normal retroperitoneum. The urinary bladder is distended. There is absence of the uterus consistent with a prior hysterectomy. Normal abdominal wall. Spondylosis at the L1-L2 level. CT/Abdomen/Pelvis WITH Contrast IMPRESSION: Findings suggestive of a right basilar scarring and/or atelectasis. Danae''s lobe of the liver. Electronically Signed: Ron Lassiter MD at 10:22 EDT ,
[2024-07-01 08:30] LABS: CREATININE FINGERSTICK < 1.0 mg/dL (0.55-1.02); EGFR FINGERSTICK > 60.0000 mL/min (>60)
== END | disposition home or self-care (01) ==
LOC: CT 08:00
PROVIDERS: PCP Family Medicine; Referring Provider Surgery; Visit Provider Surgery
DX: R10.30 Lower abdominal pain, unspecified (principal)
CPT/HCPCS: 74177; Q9967; A4216

== ENCOUNTER → 2024-08-12 | Outpatient (CLI) | payer MEDICARE, SELFPAY ==
[2024-08-12 11:09] LABS: Erythrocyte Sedimentation Rate 13 mm/hr (0-30)
[2024-08-12 11:12] LABS: Absolute Lymphocyte Count 0.73 X10^3/uL (0.83-4.51); Absolute Neutrophil Count 5.1 X10^3/uL (2.0-7.7); Basophil# 0.07 X10^3/uL; Eosinophil# 0.14 X10^3/uL; Eosinophils% 2.1 % (0-5); Hematocrit 37.1 % (37-47); Hemoglobin 11.9 g/dL (12.0-15.0); Lymphocyte # 0.73 X10^3/ul (0.83-4.51); Lymphocyte % 10.9 % (19-41); Mean Corp Hgb Conc 32.1 g/dL (32-36); Mean Corpuscular Hgb 29.7 pg (27.0-32.0); Mean Corpuscular Volume 92.5 fL (81-99); Mean Platelet Vol. 8.9 fl (6.2-12.0); Monocyte# 0.67 X10^3/uL; NRBC Flagged by Analyzer 0 % (0-5); Neutrophil # 5.09 X10^3/uL (2.7-7.7); Neutrophil % 75.7 % (47-70); Platelet Count 305 K/mm3 (150-450); RBC Distribution Width CV 12.2 % (11.6-14.6); RBC Distribution Width SD 41.8 fl (35.1-43.9); Red Blood Count 4.01 M/mm3 (4.2-5.4); White Blood Count 6.7 K/mm3 (4.4-11.0)
[2024-08-12 11:39] LABS: AST(SGOT) 30 U/L (15-37); Alanine Aminotransfer ALT/SGPT 40 U/L (13-56); Albumin, Serum 3.5 g/dL (3.2-5.0); Alkaline Phosphatase 103 U/L (45-117); Anion Gap 4 (5-15); BUN 15 mg/dL (7-18); BUN/Creat Ratio 27.3 RATIO (10-20); CRP 4.66 mg/L (0.0-3.0); Calcium,Total 9.5 mg/dL (8.5-10.1); Chloride 100 mmol/L (98-107); Creatinine, Serum 0.55 mg/dL (0.55-1.02); EST Glomerular Filtration Rate 114 mL/min (>60); Est Glom Filt Rate - Afr Amer 138 mL/min (>60); Globulin 3.5 g/dL (2.2-4.2); Glucose 96 mg/dL (74-106); Lipase 37 U/L (13-75); Potassium 4.7 mmol/L (3.5-5.1); Sodium Level 138 mmol/L (136-145)
== END | disposition home or self-care (01) ==
LOC: LAB 10:35
PROVIDERS: PCP Family Medicine; Referring Provider Student in an Organized Health Care Education/Training Program; Visit Provider Student in an Organized Health Care Education/Training Program
DX: R10.13 Epigastric pain (principal)
CPT/HCPCS: 36415; 80053; 83690; 85025; 85652; 86140

== ENCOUNTER → 2024-08-15 | Outpatient (CLI) | payer MEDICARE, SELFPAY ==
[2024-08-18 02:08] LABS: Pancreatic Elastase, Fecal > 800 (>200)
[2024-08-18 17:08] LABS: Calprotectin, Stool 89 ug/g (0-120)
== END | disposition home or self-care (01) ==
LOC: LABSPEC 09:12
PROVIDERS: PCP Family Medicine; Referring Provider Student in an Organized Health Care Education/Training Program; Visit Provider Student in an Organized Health Care Education/Training Program
DX: R10.13 Epigastric pain (principal); K58.9 Irritable bowel syndrome, unspecified
CPT/HCPCS: 82653; 83630; 83993

== ENCOUNTER 2024-08-28 05:10 | Day surgery (SDC) | payer MEDICARE, SELFPAY ==
[2024-08-28] VITALS (11 sets, daily range): BP systolic 72–122; BP diastolic 47–77; PULSE 90–107; RESP 18; TEMP 37–37.4; O2SAT 95–100; BMI 18.3
--- NOTE | 2024-08-28 06:30 | IMM_PTH ---
PATIENT: JUANJOSE CUEVA LOC: EN U#:[id number] AGE/SX: 79/F ROOM: RE08/28/[address]: Dr. Forest Stephenson DO : 1945 BED: DIS: 08/28/2024 SPEC #: [id number] RECD: 08/28/24 11:43 STATUS: YOLANDA REQ #: [id number] LUIS: 08/28/24 06:[address]: Forest Stephenson DEPT: IMMUNOHISTOCHEMISTRY RECD BY: Arnulfo Prasad ENTERED: 08/28/24 11:44 SP TYPE: IMMUNO OTHR DR: Dr. Molly Farias DO Tissues: B - Gastric mucous membrane Procedures: H Pylori (initial) KI-67 (add) P53 (add) PHYSICIAN & INSTITUTION [place] [id number] SPECIMEN INFORMATION: Tissue Source: B- Gastric antrum biopsy Clinical Info: Lower abdominal pain, epigastric abdominal pain Specimen Number: [id number] CPT code: 51596,18375g3 METHODOLOGY: Deparaffinized sections of prefer/formalin-fixed tissue or PAP/DQ stained slides are incubated with monoclonal/polyclonal antibodies/oligonucleotide probes. Localization is made via biotin free immunoperoxidase method. Appropriate controls are performed and reacted as expected. Results on target cell population are indicated in the following table: RESULTS: ANTIBODY / CLONE RESULT Block B H Pylori (polyclonal) negative P53 (DO-7) positive, wild type Ki-67 (30-9) positive, low to moderate These tests were developed and their performance characteristics determined by [facility]. They may not have been cleared or approved by the U.S. Food and Drug Administration. The FDA has determined that such clearance or approval is not necessary. The above immunohistochemical/dualISH markers are ordered and reviewed by the Pathologist. INTERPRETATION: B. Gastric antrum, biopsy: Negative for Helicobacter pylori organisms. No evidence of dysplasia. AM. 09/01/2024
--- NOTE | 2024-08-28 06:30 | EGD_PTH ---
PATIENT: JUANJOSE CUEVA LOC: EN U#:[id number] AGE/SX: 79/F ROOM: RE08/28/[address]: Dr. Forest Stephenson DO : 1945 BED: DIS: 08/28/2024 SPEC #: [id number] RECD: 08/28/24 10:28 STATUS: YOLANDA JUANITA #: [id number] LUIS: 08/28/24 06:[address]: Forest Stephenson DEPT: SURGICAL PATHOLOGY RECD BY: Kristen Benavides ENTERED: 08/28/24 12:19 SP TYPE: EGD BIOPSY OT DR: Dr. Molly Farias DO Tissues: A - Duodenum, NOS B - Gastric mucous membrane Procedures: Special Stain Group I Surgery Specimen Level IV Alcian Blue/PAS (control) HEADER OPERATION: EGD with biopsy PRE-OP DIAGNOSIS: Lower abdominal pain, epigastric abdominal pain TISSUE SUBMITTED: A- Duodenum biopsy, B- Gastric antrum biopsy MICROSCOPIC DIAGNOSIS A. Duodenum, biopsy: No pathologic change. B. Gastric antrum, biopsy: Extensive intestinal metaplasia. No evidence of dysplasia. Chronic gastritis. See comment. 08/31/2024 COMMENT B. The results of immunohistochemistry for Helicobacter pylori will be reported separately ([id number]). Alcian blue/PAS stain with matched control supports the above diagnosis. MICROSCOPIC DESCRIPTION Slides are reviewed. GROSS DESCRIPTION A. Received in fixative is one container labeled with the patient's name and designated Duodenum biopsy. The specimen consists of two irregular fragments of light nielson soft tissue that in aggregate measure 0.6 x 0.3 x 0.1 cm. The specimen is totally submitted in one cassette. B. Received in fixative is one container labeled with the patient's name and designated Gastric antrum biopsy. The specimen consists of two irregular fragments of light nielson soft tissue that in aggregate measure 0.6 x 0.3 x 0.1 cm. The specimen is totally submitted in one cassette. 08/28/2024 TC:3 CPT:83688p9,65820
--- NOTE | 2024-08-28 07:03 | PCM.PRE.AN2 ---
ASA Classification* ASA Classification ASA Classification: 3 Assessment & Plan Anesthesia* Anesthesia Assessment Anesthesia Assessment: Discussed sedation and/or anesthesia options, risks, benefits, and alternatives with patient/parents/legal guardian/POA. Questions invited. The patient/parents/legal guardian/POA seems to understand and agrees to proceed with anesthesia plan. Reviewed the physical assessment, medical history, allergy history and patient home medications list prior to surgery/procedure/anesthetic and documented any changes. Performed airway and anesthesia risk assessments. Anesthesia Type Anesthesia Type: MAC (see written pre anesthesia record for full assessment) Anesthesia Focused Assessment* Temperature: 98.6 F Pulse Rate: 107 Blood Pressure: 122/63 Respiratory Rate: 18 Pulse Ox: 96 Airway Assessment Mouth opens: >3 cm Mallampati Score: II Focused Labs Anesthesia Preop lab: CBC WBC 6.7 K/mm3 (4.4-11.0) 08/12/24 10:37 RBC 4.01 M/mm3 (4.2-5.4) L 08/12/24 10:37 Hgb 11.9 g/dL (12.0-15.0) L 08/12/24 10:37 Hct 37.1 % (37-47) 08/12/24 10:37 Plt Count 305 K/mm3 (150-450) 08/12/24 10:37 CHEMISTRY Potassium 4.7 mmol/L (3.5-5.1) 08/12/24 10:37 Sodium 138 mmol/L (136-145) 08/12/24 10:37 Magnesium 1.9 mg/dL (1.6-2.6) 02/01/22 04:41 BUN 15 mg/dL (7-18) 08/12/24 10:37 Creatinine 0.55 mg/dL (0.55-1.02) 08/12/24 10:37 Glucose 96 mg/dL (74-106) 08/12/24 10:37 POC Glucose 149 mg/dL (74-106) H 02/01/22 06:56 TSH 0.29 uIU/mL (0.358-3.74) L 01/31/22 04:09 COAG Pre-Assessment Diagnosis/Proposed Procedure Planned Operative Procedure(s): EGD Anesthesia History 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 When Was Last Pacemaker Check QUESTION #4 FULL TEXT: You/Your Family Experience fever (hyperthermia) with Anesthesia Last Oral Intake Last Oral intake: Last Oral Intake NPO since 00:00 08/28/24 05:50 Meds taken in AM with sips of No 08/28/24 05:50 water? 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 Female Yes 08/26/24 10:52 HX of Motion Sickness No 08/26/24 10:52 HX of N/V After Surgery No 08/26/24 10:52 Non-Smoker Yes 08/26/24 10:52 Duration of Surgery greater No 08/26/24 10:52 than 60 minutes Number of Risk Factors 2 08/26/24 10:52 PONV Score Moderate Risk 08/26/24 10:52 Height & Weight Height & Weight: Anesthesia: Height & Weight Height 5 ft 08/28/24 05:50 Weight: 42.638 kg 08/28/24 05:50 Body Mass Index (BMI) 18.3 08/28/24 05:50 Respiratory Assessment Respiratory Assessment - 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 Has anyone observed you stop No 08/26/24 10:52 breathing during sleep? STOP Results Negative 08/26/24 10:52 QUESTION #5 FULL TEXT : Do you snore loudly (louder than talking or can be heard through closed doors)? 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 Specify any problems Hx of Preganancy in last 3 No 08/26/24 10:52 Months Nurse Filling Out Transfusion VCHRISTIN 08/26/24 10:52 & Questions: Date: 08/26/24 08/26/24 10:52 Time: 10:54 08/26/24 10:52 Patient unable to answer at this time (ie. 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 Hx Now Gestational Age (in weeks): EDC: Hx Hx Para Hx Section SAB PFSH Medical History (Updated 08/26/24 @ 10:52 by Ya Ang) Wears dentures Wears glasses Post-menopausal Former smoker Shortness of breath on exertion Chronic cough History of echocardiogram Cardiology follow-up encounter On home oxygen therapy Hypertension Pneumonia COPD with acute exacerbation Nicotine dependence, cigarettes, uncomplicated Vitamin D deficiency Psoriasis Chronic insomnia Takotsubo cardiomyopathy Atherosclerotic heart disease of [place] coronary artery without angina pectoris Hernia Kidney stones Smoker COPD (chronic obstructive pulmonary disease) COPD exacerbation NSTEMI, initial episode of prison Medications ?Medication ?Instructions ?Recorded ?Last Taken ?Type multivitamin-ferrous 1 tab PO DAILY HEALTH MAINTENANCE 01/31/22 10/16/23 History fumarate-folic acid 18 mg-400 mcg tablet (Multi Complete with Iron) aspirin 81 mg chewable tablet 81 mg PO BREAKFAST HEART HEALTH 02/01/22 08/25/24 Rx 30 days #30 tabs Nebulizer tubing/equipment #1 ea 05/24/23 Unknown Rx fluticasone fur. 100 mcg-umeclid 1 ea inhalation DAILY COPD #3 ea 01/29/24 08/28/24 Rx 62.5 mcg-vilant 25 mcg inhalat.powder (Trelegy Ellipta) lisinopril 2.5 mg tablet 2.5 mg PO DAILY BLOOD PRESSURE 06/01/24 08/27/24 Rx #90 tabs albuterol sulfate 90 mcg/actuation 2 inh inhalation Q4H PRN SHORTNESS 07/08/24 Unknown Rx aerosol inhaler OF BREATH/WHEEZING #3 ea guaifenesin 1,200 mg tablet, 1,200 mg PO Q12H #60 tabs 07/08/24 08/27/24 Rx extended release 12 hr ipratropium 0.5 mg-albuterol 3 mg 3 ml inhalation Q4H PRN PRN SOB 07/08/24 08/28/24 Rx (2.5 mg base)/3 mL nebulization &/OR WHEEZING #180 mL soln benzonatate 200 mg capsule 200 mg PO TID PRN cough 08/26/24 Unknown History omeprazole 20 mg capsule,delayed 20 mg PO DAILY 08/26/24 08/27/24 History release Allergy/AdvReac Type Severity Reaction Status Date / Time brompheniramine (From Allergy Other Verified 08/28/24 05:43 Bromphenex DM) dextromethorphan (From Allergy Other Verified 08/28/24 05:43 Bromphenex DM) pseudoephedrine (From Allergy Other Verified 08/28/24 05:43 Bromphenex DM) Family History Father COPD (chronic obstructive pulmonary disease) Colon cancer Heart disease Brother COPD (chronic obstructive pulmonary disease) Lung cancer Diabetes Heart disease Hypertension Mother Heart disease Arthritis Brother Lung cancer Brother Lung cancer Son Cancer renal Other Uterine cancer Surgical History (Updated 08/26/24 @ 10:52 by Ya Ang) History of cardiac catheterization H/O hernia repair H/O skin graft Cataract extraction status H/O eye surgery History of bladder surgery H/O: hysterectomy History of left heart catheterization (LHC) (~01/31/22) Social History (Updated 08/12/24 @ 10:09 by Maranda Clayton) household members: spouse current occupational status: 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
--- NOTE | 2024-08-28 08:14 | PCM.HP.BLA ---
History and Physical Date of Admission: 08/28/24 Chief Complaint: epigastric pain Details: JUANJOSE CUEVA, is a 79 F who presents to the office today for establishment with [facility]. Pt has a PMHx of HTN, COPD, Takotsubo cardiomyopathy, and CAD. She has had chronic epigastric pain for a couple months now. She is unable to tell me if the pain is dull, achy or sharp. It is not constant but it does happen on a daily basis. Pain is worse with laying down. It is not associated with eating food and not worse on an empty stomach. She does tell me she has no appetite and has been losing weight unintentionally over past year. See used to weigh 115lbs and is down to 90 lbs. She also has complaints of constipation with 2 bm per week. SHe will take milk of mag PRN. She has never had an EGD. Colonoscopies in the past have been normal. CT abdomen/pelvis 07.01.24;Findings suggestive of a right basilar scarring and/or atelectasis. Danae''s lobe of the liver. ROS Const Constitutional: Positive for weight change; No fatigue or fever(s) ENT ENT: No difficulty swallowing Gastro GI: Positive for abdominal pain, change in bowel habits and constipation; No belching, bloating, change in stool character, coffee ground emesis, cramping, diarrhea, heartburn, difficulty swallowing, feeling full early, excessive flatus, incontinent of stools, Vomiting blood/hematemesis, Blood in stool, loose stools, Black,tarry stools, nausea/dyspepsia, pain with swallowing, vomiting or other Musc Musculoskeletal: Positive for muscle cramps and muscle weakness; No joint pain Skin Skin: No yellowing of the eye or itchy eyes Psych Psychiatric: No anxiety and No depression Endo Endocrine: Positive for weight change; No fatigue Aller/Imm Allergy/Immunologic: No itchy eyes Oli/Lymp Hematologic/Lymphatic: Positive for easy bruising; No easy bleeding Exam Const General: cooperative and comfortable Nutritional Appearance: average body habitus and malnourished [facility] Head: normal to inspection Ears: hearing grossly normal bilaterally Nose: external nose normal Face and sinus: normal facial exam Eyes General: appearance normal, both eyes and all related structures Neck Neck: normal visual inspection Chest Chest palpation & inspection: normal inspection of the chest Resp Effort & Inspection: normal respiratory effort and other (on oxygen ) GI Inspection: normal to inspection Palpation: no hepatosplenomegaly Skin General: no rashes or lesions noted Neuro General: patient alert Extrem General: normal to inspection Psych Affect: normal affect Assessment and Plan Assessment and Plan (1) Lower abdominal pain: Status: Acute (2) Epigastric abdominal pain: Status: Acute Plan: Pt is here today for evaluation of epigastric pain x3 months. The pain is happening daily but is not constant. It radiates from side to side. Over the past year she has had a 25 lbs unintentional weight loss. On exam, she does appear frail and malnourished. I recommended we start work up with blood work, stool tests and an EGD. She denies ever having an EGD in the past. I discussed that it sounds like she may of some inflammation in her stomach or duodenum. She has never taken a PPI; I recommend she start omeprazole BID. She has some hesitation since she does not feel it is reflux but she agreed to try it. Differential diagnosis includes gastritis, duodenitis, malignancy, ulcer or chronic pancreatitis. -EGD -ESR, CRP, CMP, CBC -Calprotectin, lactoferrin, elastase -f/u in 3 months Orders: Orders Comprehensive Metabolic Profil Today R10.13 - Epigastric pain CBC W/Diff, Automated Today R10.13 - Epigastric pain Calprotectin, Stool Today R10.13 - Epigastric pain CRP Today R10.13 - Epigastric pain Erythrocyte Sed Rate Today R10.13 - Epigastric pain Stool Lactoferrin/WBC Today K58.9 - Irritable bowel syndrome, unspecified, R10.13 - Epigastric pain Pancreatic Elastase, Fecal Today R10.13 - Epigastric pain Lipase Today R10.13 - Epigastric pain Medications: New omeprazole 20 mg PO BID 30 caps 3RF I have examined the patient and the H&P has been reviewed. There are no clinical changes since date of exam.
--- NOTE | 2024-08-28 08:48 | PCM.POSTANE2 ---
Anesthesia Postop Eval I Sum Anesthesia Postop Eval I Summary Anesthesia Postop Eval I Summary: Anesthesia Postop Eval I: Assessment Summary Airway patent Spontaneous unlabored respirations Mental status nausea Vomiting Anesthesia Postop Eval I: Fluid Summary Crystalloid volume administer (ml) Colloids volume administered ( ml) Blood Product volume administered (ml) Total IV fluid infused Anesthesia Postop Eval I: Summary Notes Anesthesia Complication Anesthesia Complication Comment: Post-operative progress note Anesthesia: Postop Eval II Evaluation Mental status: Awake Pain Level: 0 nausea: No Vomiting: No Progress Note Post-operative progress note: PT hypoTN, TC, placed on IVF + bolous, and positioned
--- NOTE | 2024-08-28 08:59 | POSTOPAN2_ITS ---
Anesthesia Postop Eval I Sum Postop Eval Completion status Anesthesia document: Postop Eval 1 completed: Yes Anesthesia Postop Eval I Summary Anesthesia Postop Eval I Summary: Anesthesia Postop Eval I: Assessment Summary Airway patent Yes 08/28/24 08:59 OFFSHORE WIND OPERATIONS MANAGER.MDOT Spontaneous unlabored Yes 08/28/24 08:59 OFFSHORE WIND OPERATIONS MANAGER.MDOT respirations Mental status Awake,Calm 08/28/24 08:59 OFFSHORE WIND OPERATIONS MANAGER.MDOT nausea No 08/28/24 08:59 OFFSHORE WIND OPERATIONS MANAGER.MDOT Vomiting No 08/28/24 08:59 OFFSHORE WIND OPERATIONS MANAGER.MDOT Anesthesia Postop Eval I: Fluid Summary Crystalloid volume administer 10 08/28/24 08:59 OFFSHORE WIND OPERATIONS MANAGER.MDOT (ml) Colloids volume administered ( ml) Blood Product volume administered (ml) Total IV fluid infused 10 08/28/24 08:59 OFFSHORE WIND OPERATIONS MANAGER.MDOT Anesthesia Postop Eval I: Summary Notes Anesthesia Complication No 08/28/24 08:59 OFFSHORE WIND OPERATIONS MANAGER.MDOT Anesthesia Complication Comment: Post-operative progress note Anesthesia: Postop Eval II Evaluation Mental status: Awake and Calm Pain Level: 0 nausea: No Vomiting: No Complications Anesthesia Complication: No
--- NOTE | 2024-08-28 08:59 | PCM.POST.ANE ---
Anesthesia: Postop Eval I Current Vital Signs Temperature: 99.3 F Pulse Rate: 100 Blood Pressure: 90/60 Respiratory Rate: 18 Pulse Ox: 95 Oxygen Delivery Method: Nasal Cannula Oxygen Flow Rate (L/min): 3 Assessment Airway patent: Yes Spontaneous unlabored respirations: Yes Mental status: Awake and Calm nausea: No Vomiting: No Anesthesia Complication: No Fluid Hydration Crystalloid volume administer (ml): 10 Total IV fluid infused: 10 Progress Note Anesthesia document: Postop Eval 1 completed: Yes
--- NOTE | 2024-08-28 08:59 | PCM.POSTANE2 ---
Anesthesia Postop Eval I Sum Postop Eval Completion status Anesthesia document: Postop Eval 1 completed: Yes Anesthesia Postop Eval I Summary Anesthesia Postop Eval I Summary: Anesthesia Postop Eval I: Assessment Summary Airway patent Yes 08/28/24 08:59 REPAIRER SCREEN CRUSHER.MDOT Spontaneous unlabored Yes 08/28/24 08:59 REPAIRER SCREEN CRUSHER.MDOT respirations Mental status Awake,Calm 08/28/24 08:59 REPAIRER SCREEN CRUSHER.MDOT nausea No 08/28/24 08:59 REPAIRER SCREEN CRUSHER.MDOT Vomiting No 08/28/24 08:59 REPAIRER SCREEN CRUSHER.MDOT Anesthesia Postop Eval I: Fluid Summary Crystalloid volume administer 10 08/28/24 08:59 REPAIRER SCREEN CRUSHER.MDOT (ml) Colloids volume administered ( ml) Blood Product volume administered (ml) Total IV fluid infused 10 08/28/24 08:59 REPAIRER SCREEN CRUSHER.MDOT Anesthesia Postop Eval I: Summary Notes Anesthesia Complication No 08/28/24 08:59 REPAIRER SCREEN CRUSHER.MDOT Anesthesia Complication Comment: Post-operative progress note Anesthesia: Postop Eval II Evaluation Mental status: Awake and Calm Pain Level: 0 nausea: No Vomiting: No Complications Anesthesia Complication: No
--- NOTE | 2024-08-31 15:27 | OP.CCLET_ITS ---
08/28/2024 Molly Farias Re : Upper GI endoscopy procedure for Beatrice Soria Dear Dinora This procedure was performed on Wednesday, August 28, 2024. My impressions and recommendations are as follows: Impressions : - Normal esophagus. - Erythematous mucosa in the antrum. Biopsied. - Duodenal mucosal atrophy. Biopsied. Recommendations : - Discharge patient to home. - Resume previous diet. - Continue present medications. - Await pathology results. - CTA of the abdomen and pelvis to look for SMA syndrome My findings are described in the full procedure note, which is enclosed. If I can be of further assistance, please feel free to contact me at . Sincerely, Forest Stephenson, 08/28/2024 8:36:44 AM This report has been signed electronically.
--- NOTE | 2024-08-31 15:27 | OP.EGD_ITS ---
Patient Name: Beatrice Soria Procedure Date: 08/28/2024 6:12 AM Date of : 1945 Age: 79 Procedure: Upper GI endoscopy Indications: Epigastric abdominal pain Providers: Forest Stephenson DO Medicines: Monitored Anesthesia Care Patient Profile: This is a 79 year old female. Refer to note in patient chart for documentation of history and physical. Patient has symptoms of acute epigastric abdominal pain and acute nausea. Complications: No immediate complications. Procedure: Pre-Anesthesia Assessment: - Prior to the procedure, a History and Physical was performed, and patient medications and allergies were reviewed. The patient is competent. The risks and benefits of the procedure and the sedation options and risks were discussed with the patient. All questions were answered and informed consent was obtained. Patient identification and proposed procedure were verified by the physician in the pre-procedure area. Mental Status Examination: alert and oriented. Airway Examination: normal oropharyngeal airway and neck mobility. Respiratory Examination: clear to auscultation. CV Examination: normal. Prophylactic Antibiotics: The patient does not require prophylactic antibiotics. Prior Anticoagulants: The patient has taken no anticoagulant or antiplatelet agents except for NSAID medication. ASA Grade Assessment: II - A patient with mild systemic disease. After reviewing the risks and benefits, the patient was deemed in satisfactory condition to undergo the procedure. The anesthesia plan was to use monitored anesthesia care (MAC). Immediately prior to administration of medications, the patient was re-assessed for adequacy to receive sedatives. The heart rate, respiratory rate, oxygen saturations, blood pressure, adequacy of pulmonary ventilation, and response to care were monitored throughout the procedure. The physical status of the patient was re-assessed after the procedure. After obtaining informed consent, the endoscope was passed under direct vision. Throughout the procedure, the patient's blood pressure, pulse, and oxygen saturations were monitored continuously. The gastroscope was introduced through the mouth, and advanced to the second part of duodenum. The upper GI endoscopy was accomplished without difficulty. The patient tolerated the procedure well. Scope In: 8:27:45 AM Scope Out: 8:29:58 AM Total Procedure Duration Time 0 hours 2 minutes 13 seconds Findings: The examined esophagus was normal. Patchy mildly erythematous mucosa without bleeding was found in the gastric antrum. Biopsies were taken with a cold forceps for histology. Verification of patient identification for the specimen was done. Estimated blood loss was minimal. Biopsies were taken with a cold forceps for Helicobacter pylori testing. Verification of patient identification for the specimen was done. Estimated blood loss was minimal. Patchy atrophic mucosa was found in the duodenal bulb. Biopsies were taken with a cold forceps for histology. Verification of patient identification for the specimen was done. Estimated blood loss was minimal. Impression: - Normal esophagus. - Erythematous mucosa in the antrum. Biopsied. - Duodenal mucosal atrophy. Biopsied. Recommendation: - Discharge patient to home. - Resume previous diet. - Continue present medications. - Await pathology results. - CTA of the abdomen and pelvis to look for SMA syndrome Procedure Code(s): --- Professional --- 06518, Esophagogastroduodenoscopy, flexible, transoral; with biopsy, single or multiple CPT copyright 2021 [employer]. All rights reserved. The codes documented in this report are preliminary and upon motel food service supervisor review may be revised to meet current compliance requirements. Forest Stephenson DO 08/28/2024 8:36:44 AM This report has been signed electronically. Number of Addenda: 0 Note Initiated On: 08/28/2024 6:12 AM
== END 2024-08-28 09:38 | disposition home or self-care (01) ==
LOC: EN 05:15 → AC 05:16
PROVIDERS: PCP Family Medicine; Referring Provider Family Medicine; Visit Provider Internal Medicine Gastroenterology
PROC: 0DJ08ZZ Inspection of Upper Intestinal Tract, Via Natural or Artificial Opening Endoscopic (ICD-10-PCS; CPT 43235; principal; 2024-08-28 06:25)
DX: R10.13 Epigastric pain (principal); J44.9 Chronic obstructive pulmonary disease, unspecified; I25.10 Atherosclerotic heart disease of native coronary artery without angina pectoris; K31.89 Other diseases of stomach and duodenum; R10.30 Lower abdominal pain, unspecified; I10 Essential (primary) hypertension
CPT/HCPCS: 43239; 88305; 88312; 88341; 88342; A4216

== ENCOUNTER → 2024-09-25 | Outpatient (CLI) | payer MEDICARE, SELFPAY ==
--- NOTE | 2024-09-25 08:11 | CT_ITS ---
HISTORY: Superior mesenteric artery syndrome. TECHNIQUE: Multiple helical CT images were of the abdomen after the intravenous demonstration 75 mL Isovue-370 with multiplanar reconstructions. On a separate workstation, 3-dimensional reconstructions were obtained of the arterial vasculature using volume rendering technique and maximal intensity projection technique as per departmental protocol. The protocol utilizes one or more of the following dose reduction techniques: automated exposure control, adjustment of mA and/or kV according to patient size,and/or use of iterative reconstruction technique. 373 images. COMPARISON: 07/01/2024. FINDINGS: LOWER CHEST: Emphysema and mild dependent atelectasis. BOWEL: Bowel nondilated. No focal inflammatory change observed. PERITONEUM: No significant ascites. LIVER: No enhancing mass. GALLBLADDER: Gallbladder present. SPLEEN/PANCREAS/ADRENAL glands: Unremarkable. KIDNEYS: 1 mm left lower pole calculus without hydronephrosis. Unremarkable right kidney. OSSEOUS STRUCTURES: Degenerative change. ABDOMINAL AORTA: Tortuous without aneurysm or dissection flap. Mild atherosclerosis. CELIAC AXIS: No significant stenosis. Very mild calcified plaque at the origin. Tortuosity of the branches. SUPERIOR MESENTERIC ARTERY: Patent without demonstrated narrowing. Very mild calcified plaque at the origin. RENAL ARTERIES: No significant stenosis of the single bilateral renal arteries. INFERIOR MESENTERIC ARTERY: No occlusion. ILIAC ARTERIES: Mild atherosclerosis of the bilateral common, visualized internal, and visualized external iliac arteries without high-grade stenosis or aneurysm. CT/CTA Abdomen W/WO Contrast IMPRESSION: Tortuous abdominal aorta without aneurysm. Mild atherosclerosis. No evidence for significant stenosis of the superior mesenteric artery. Small nonobstructing left renal calculus. Electronically Signed: Brit Rodriguez MD at 9:35 EST ,
[2024-09-25 08:46] LABS: CREATININE FINGERSTICK < 1.0 mg/dL (0.55-1.02); EGFR FINGERSTICK > 60.0000 mL/min (>60)
== END | disposition home or self-care (01) ==
LOC: CT 08:11
PROVIDERS: PCP Family Medicine; Referring Provider Internal Medicine Gastroenterology; Visit Provider Internal Medicine Gastroenterology
DX: K55.1 Chronic vascular disorders of intestine (principal)
CPT/HCPCS: 74175; Q9967

== ENCOUNTER 2024-11-08 09:50 | Inpatient (IN) | payer MEDICARE, SELFPAY ==
[2024-11-08] VITALS (14 sets, daily range): BP systolic 94–163; BP diastolic 58–94; PULSE 85–143; RESP 12–30; TEMP 35.9–36.8; O2SAT 96–100; BMI 19.0; BMI 17.3
--- NOTE | 2024-11-08 09:50 | RAD_ITS ---
INDICATION: dyspnea EXAMINATION/TECHNIQUE: X-RAY - XR Chest 1 View COMPARISON: Prior study dated: 05/20/2024 FINDINGS: LINES/DEVICES: None. LUNGS: COPD changes Mild stranding/scarring in the lower lungs. No new infiltrate is seen. No evidence of pleural effusions. MEDIASTINUM AND CARDIOVASCULAR STRUCTURES: Cardiac silhouette not enlarged. Central airways and mediastinal contour are unremarkable. BONES AND SOFT TISSUES: There are soft tissues and osseous structures. RAD/Chest 1 View (Portable) IMPRESSION: No radiographic evidence of acute cardiopulmonary disease. Electronically Signed: Mick Mock MD at 10:23 EST ,
--- NOTE | 2024-11-08 09:55 | EKG12_ITS ---
Test Reason : Blood Pressure : */* mmHG Vent. Rate : 125 BPM Atrial Rate : 125 BPM P-R Int : 122 ms QRS Dur : 76 ms QT Int : 304 ms P-R-T Axes : 74 9 97 degrees QTcB Int : 438 ms Sinus tachycardia Septal infarct , age undetermined Abnormal ECG Confirmed by COREY MOSER, ARIN ([id number]), television news video editor VERENICE NYE ([id number]) on 11/09/2024 10:53:35 AM Referred By: KRISTAL Confirmed By: ARIN NICOLE MD
--- NOTE | 2024-11-08 10:01 | ED.VIS.DYS ---
HPI History of Present Illness Chief Complaint: Shortness of Breath Informant: patient, spouse/S.O. and EMS Narrative Narrative: 79-year-old female presenting to the emergency room via EMS with a chief complaint of dyspnea. Patient has a history of COPD chronically wears home oxygen at a couple liters. She apparently was up had just finished a breathing treatment and about 30 minutes after the treatment stated that she needed help. She notes dyspnea. She did not have any significant issues yesterday. She still smokes. No history of pneumothorax. No reported fevers. EMS notes she was hypoxic into the 70s they placed her on a nonrebreather administered 2 DuoNebs. 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 Hernia Kidney stones Smoker COPD (chronic obstructive pulmonary disease) COPD exacerbation NSTEMI, initial episode of senior care Medications ?Medication ?Instructions ?Recorded ?Last Taken ?Type multivitamin-ferrous 1 tab PO DAILY HEALTH MAINTENANCE 01/31/22 10/16/23 History fumarate-folic acid 18 mg-400 mcg tablet (Multi Complete with Iron) aspirin 81 mg chewable tablet 81 mg PO BREAKFAST HEART HEALTH 02/01/22 08/25/24 Rx 30 days #30 tabs Nebulizer tubing/equipment #1 ea 05/24/23 Unknown Rx lisinopril 2.5 mg tablet 2.5 mg PO DAILY BLOOD PRESSURE 06/01/24 08/27/24 Rx #90 tabs albuterol sulfate 90 mcg/actuation 2 inh inhalation Q4H PRN SHORTNESS 07/08/24 Unknown Rx aerosol inhaler OF BREATH/WHEEZING #3 ea guaifenesin 1,200 mg tablet, 1,200 mg PO Q12H #60 tabs 07/08/24 08/27/24 Rx extended release 12 hr ipratropium 0.5 mg-albuterol 3 mg 3 ml inhalation Q4H PRN PRN SOB 07/08/24 08/28/24 Rx (2.5 mg base)/3 mL nebulization &/OR WHEEZING #180 mL soln benzonatate 200 mg capsule 200 mg PO TID PRN cough 08/26/24 Unknown History Disability Placard #2 ea 10/07/24 Unknown Rx prednisone 10 mg tablet 10 mg PO QDAY #30 tabs 10/07/24 Unknown Rx omeprazole 40 mg capsule,delayed 40 mg PO BID 90 days #180 caps 10/22/24 Unknown Rx release fluticasone fur. 100 mcg-umeclid 1 inh inhalation Q24H #60 ea 10/30/24 Unknown Rx 62.5 mcg-vilant 25 mcg inhalat.powder (Trelegy Ellipta) Allergy/AdvReac Type Severity Reaction Status Date / Time brompheniramine (From Allergy Other Verified 10/07/24 07:44 Bromphenex DM) dextromethorphan (From Allergy Other Verified 10/07/24 07:44 Bromphenex DM) pseudoephedrine (From Allergy Other Verified 10/07/24 07:44 Bromphenex DM) Family History Father COPD (chronic obstructive pulmonary disease) Colon cancer Heart disease Brother COPD (chronic obstructive pulmonary disease) Lung cancer Diabetes Heart disease Hypertension Mother Heart disease Arthritis Brother Lung cancer Brother Lung cancer Son Cancer renal Other Uterine cancer Surgical History History of cardiac catheterization H/O hernia repair H/O skin graft Cataract extraction status H/O eye surgery History of bladder surgery H/O: hysterectomy History of left heart catheterization (LHC) (~01/31/22) Social History household members: spouse current occupational status: 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 Smoking Status: Current every day smoker tobacco type: cigarettes Tobacco: How many years used: 40 Electronic Cigarette Use: not used second hand exposure: No alcohol intake: never substance use type: does not use what type of physical activity do you participate in: none do you feel safe at home: Yes ROS ROS ED Constitutional Constitutional ED: Denies chills, fever(s) or weight loss Eyes Eyes: Denies change in vision or diplopia ENT ENT ED: Denies ear pain, rhinorrhea or sore throat Cardiovascular Cardiovascular: Denies chest pain, orthopnea, palpitations or racing heartbeat Respiratory/Chest Respiratory/Chest: Reports dyspnea and dyspnea on exertion; Denies cough or orthopnea Gastrointestinal Gastrointestinal: Denies abdominal pain, diarrhea, nausea or vomiting Genitourinary Genitourinary ED: Denies dysuria, hematuria or urinary frequency Musculoskeletal Musculoskeletal: Denies arthralgias or myalgias Integumentary Denies abscess or rash Neurologic Neurologic: Denies headache(s) or weakness Psychiatric Psychiatric: Denies anxiety, depression, suicidal ideation or suicidal thoughts Endocrine Endocrinology: Denies polydipsia, polyphagia or polyuria Allergic/Immunologic Allergic/Immunologic ED: Denies mouth swelling, tongue swelling or urticaria EXAM Physical Exam Narrative Exam Narrative: Slightly cachectic appearing Const Vital Signs: 11/08/24 09:50 11/08/24 09:54 11/08/24 09:55 Temperature 96.9 F L Temperature Source Oral Pulse Rate 143 H Respiratory Rate 24 H Respiratory Effort Labored Accessory Muscle Use Respiratory Pattern Tachypnea Blood Pressure 163/94 H Blood Pressure Mean 117 Pulse Ox 100 Oxygen Delivery Method Non-Rebreather Non-Rebreather Oxygen Flow Rate (L/min) 15 Fraction of Inspired Oxygen (FIO2) 11/08/24 10:01 11/08/24 10:18 11/08/24 10:25 Temperature Temperature Source Pulse Rate 135 H 126 H Respiratory Rate 18 20 H Respiratory Effort Respiratory Pattern Normal Normal Blood Pressure Blood Pressure Mean Pulse Ox 100 Oxygen Delivery Method Oxygen Flow Rate (L/min) Fraction of Inspired Oxygen (FIO2) 50 40 11/08/24 10:54 11/08/24 10:59 11/08/24 11:02 Temperature 98.3 F 98.2 F 98.2 F Temperature Source Oral Oral Pulse Rate 117 H 110 H 112 H Respiratory Rate 24 H 24 H 22 H Respiratory Effort Respiratory Pattern Blood Pressure 124/72 H 118/71 118/71 Blood Pressure Mean 89 86 86 Pulse Ox 100 98 99 Oxygen Delivery Method Bi-pap Bi-pap Oxygen Flow Rate (L/min) Fraction of Inspired Oxygen (FIO2) 11/08/24 12:00 Temperature 98.2 F Temperature Source Oral Pulse Rate 112 H Respiratory Rate 22 H Respiratory Effort Respiratory Pattern Blood Pressure 105/72 Blood Pressure Mean 83 Pulse Ox 99 Oxygen Delivery Method Bi-pap Oxygen Flow Rate (L/min) Fraction of Inspired Oxygen (FIO2) Positive well nourished and well developed Constitutional Narrative: Moderate to severe respiratory distress General Appearance ED: well developed HEENT Reports normocephalic, head/scalp atraumatic and moist mucous membranes Eyes PERRL and EOMs intact bilaterally Neck no lymphadenopathy, supple and no JVD Chest Wall Chest Narrative: Barrel chested Resp Resp Narrative: Moderate to severe respiratory distress Auscultation: diminished lung sounds diffuse Cardio regular rate, regular rhythm and no murmurs Rate: tachycardic GI normal to inspection, nondistended, normoactive bowel sounds and non-tender Palpation: soft Back/Spine no CVA tenderness and normal ROM Extremity normal to inspection General Extremety ED: Negative for edema General Extremity: Negative for edema Neuro oriented x3 and CN's II-XII intact bilaterally Sensorium / Orientation: alert Motor Exam: strength 5/5 throughout Psych mental status grossly normal Mood & Affect: Negative for depressed or tearful Skin no rashes or lesions noted and no wounds MDM MDM MDM Narrative Medical decision making narrative: Differential diagnosis includes but not limited to mucous plugging pneumonia pleural effusions COPD exacerbation pneumothorax acute coronary syndrome cardiac dysrhythmia electrolyte abnormalities Prehospital EKG shows a sinus tachycardia. My independent interpretation of the chest x-ray is chronic changes with flattening of the diaphragms suggesting air trapping. X-ray is slightly rotated. White count normal at 6.6 hemoglobin 11.6 platelet count 349. INR 1 PTT 28.9 lactic acid is elevated 2.2 which I believe is more indicative of her increased work of breathing and profound hypoxemia. Troponin is normal at 21. Glucose 208 normal LFTs. Patient was placed on BiPAP. DuoNeb which would be her third was given in addition to Solu-Medrol. An ABG shows a respiratory acidosis with high CO2. Because of how rapid in onset the symptomology was a CTA of the chest was obtained. This is negative for pulmonary embolism. She has severe emphysema. She is doing better on BiPAP. At the current time we are recommending admission. History & Record Review Discussion w/independent historian: EMS personnel, Patient and Significant other Additional record(s) reviewed:: Prior inpatient record, Prior ED visit and Prior labs Lab Data Attestation: I reviewed the patient's lab results. Labs: Laboratory Results - last 24 hr 11/08/24 11/08/24 09:55 10:04 WBC 6.6 RBC 3.91 L Hgb 11.6 L Hct 38.5 MCV 98.5 MCH 29.7 MCHC 30.1 L RDW Std Deviation 44.9 H RDW Coeff of Carter 12.5 Plt Count 349 MPV 9.0 Immature Gran % (Auto) 0.500 Neut % (Auto) 56.6 Lymph % (Auto) 29.3 [place] % (Auto) 10.1 H Eos % (Auto) 2.6 Baso % (Auto) 0.9 Absolute Neuts (auto) 3.8 Absolute Lymphs (auto) 1.94 Nucleated RBC % 0 PT 12.7 INR 1.0 APTT 28.9 Sodium 141 Potassium 4.4 Chloride 101 Carbon Dioxide 35.0 H Anion Gap 5 BUN 12 Creatinine 0.63 Estim Creat Clear Calc 41.00 Est GFR (MDRD) Af Amer 118 Est GFR (MDRD) Non-Af 98 BUN/Creatinine Ratio 19.1 Glucose 208 H Lactic Acid 2.2 H* Calcium 9.2 Total Bilirubin 0.20 Direct Bilirubin < 0.05 AST 26 ALT 26 Alkaline Phosphatase 94 Troponin I High Sens 21 Total Protein 7.3 Albumin 3.5 Globulin 3.8 ABG Data ABG results: ABG 11/08/24 10:36 Specimen Type ART Sample Site R Radial pH 7.26 L Bicarbonate Actual 34.9 H Total CO2 37 Base Excess 8 H O2 Saturation 99 O2 % 40.0 ABG pCO2 77.8 H* ABG pO2 156 H Igor Test N/A Respiration Rate 12 O2 Delivery Device BiPAP Vent Mode Not entered Crit Call To/Read Back Yes Blood Gas Notified Whom Dr Burgos Blood Gas Notified Time 10:38:00 Radiography Diagnostic Testing: Clinical Impression(s) from Imaging Studies Chest X-Ray 11/08/24 09:50 IMPRESSION: No radiographic evidence of acute cardiopulmonary disease. Electronically Signed: Mick Mock MD at 10:23 EST , Chest CTA 11/08/24 10:58 IMPRESSION: 1. No evidence of pulmonary embolism. 2. Severe emphysematous and chronic changes which is associated with increased incidence of cancer. Follow-up exam in one year is recommended. 3. No focal consolidation or pleural effusions. Electronically Signed: Mick Mock MD at 12:46 EST , EKG Initial EKG: Attestation: I personally reviewed and interpreted this EKG as follows: Comments: Sinus tachycardia ventricular rate of 125 bpm Management Discussion w/another healthcare provider: Hospitalist (Dr Richardson) Discharge Plan Dx/Rx/DC Orders Clinical Impression: Acute respiratory distress, Smoker, Acute and chronic respiratory failure with hypoxia, COPD exacerbation Disposition Disposition: Acute Care Hospital [facility]
[2024-11-08] MEDS: Ipratropium/Albuterol Sulfate 3 ML AMPUL.NEB INHALATION ×2 (10:05→21:48)
[2024-11-08] MEDS: MethylPREDNISolone 125 MG/2 ML Vial IV (10:05)
[2024-11-08 10:07] LABS: Absolute Lymphocyte Count 1.94 X10^3/uL (0.83-4.51); Absolute Neutrophil Count 3.8 X10^3/uL (2.0-7.7); Basophil# 0.06 X10^3/uL; Basophil% 0.9 % (0-1); Eosinophil# 0.17 X10^3/uL; Eosinophils% 2.6 % (0-5); Hematocrit 38.5 % (37-47); Hemoglobin 11.6 g/dL (12.0-15.0); Lymphocyte # 1.94 X10^3/ul (0.83-4.51); Lymphocyte % 29.3 % (19-41); Mean Corp Hgb Conc 30.1 g/dL (32-36); Mean Corpuscular Hgb 29.7 pg (27.0-32.0); Mean Corpuscular Volume 98.5 fL (81-99); Monocyte# 0.67 X10^3/uL; Monocyte% 10.1 % (0-10); NRBC Flagged by Analyzer 0 % (0-5); Neutrophil # 3.75 X10^3/uL (2.7-7.7); Neutrophil % 56.6 % (47-70); Platelet Count 349 K/mm3 (150-450); RBC Distribution Width CV 12.5 % (11.6-14.6); RBC Distribution Width SD 44.9 fl (35.1-43.9); Red Blood Count 3.91 M/mm3 (4.2-5.4); White Blood Count 6.6 K/mm3 (4.4-11.0)
[2024-11-08 10:18] LABS: Prothrombin Time (Protime)PT. 12.7 SECONDS (11.7-14.9)
[2024-11-08 10:19] LABS: Partial Thromboplast Time 28.9 Seconds (24.1-36.2)
[2024-11-08 10:41] LABS: Base Excess 8 mmol/L (-2 to +2); Bicarbonate 34.9 mmol/L (22-26); Blood Gas Specimen Type ART; Mode Not entered; O2 Delivery Device BiPAP; PO2 156 mmHG (75-100); RR 12; SITE R Radial; SO2 99 % (95-99); Total Carbon Dioxide 37 mmol/L; pCO2 77.8 mmHg (35-45); pH 7.26 (7.35-7.45)
[2024-11-08 10:49] LABS: AST(SGOT) 26 U/L (15-37); Alanine Aminotransfer ALT/SGPT 26 U/L (13-56); Albumin, Serum 3.5 g/dL (3.2-5.0); Alkaline Phosphatase 94 U/L (45-117); Anion Gap 5 (5-15); BUN 12 mg/dL (7-18); BUN/Creat Ratio 19.1 RATIO (10-20); Bilirubin, Direct < 0.05 mg/dL (0.00-0.30); Calcium,Total 9.2 mg/dL (8.5-10.1); Chloride 101 mmol/L (98-107); Creatinine, Serum 0.63 mg/dL (0.55-1.02); EST Glomerular Filtration Rate 98 mL/min (>60); Est Glom Filt Rate - Afr Amer 118 mL/min (>60); Globulin 3.8 g/dL (2.2-4.2); Glucose 208 mg/dL (74-106); Potassium 4.4 mmol/L (3.5-5.1); Protein, Total 7.3 g/dL (6.4-8.2); Sodium Level 141 mmol/L (136-145); Troponin-I HS 21 pg/mL (3.0-54.0)
[2024-11-08 10:51] LABS: Lactic Acid 2.2 mmol/L (0.4-1.9)
--- NOTE | 2024-11-08 10:58 | CT_ITS ---
STUDY: CTA CHEST REASON FOR EXAM: Female, 79 years old. Pulmonary embolism RADIATION DOSAGE (If Supplied By Facility): CTDIvol = ( 4.81 ) mGy, DLP = ( 119.59 ) mGycm TECHNIQUE: The examination was performed with the intravenous administration of IV 75mL Isovue-370. Post-processing of the angiographic images was performed, with multiplanar reformation and 3D reconstruction. The protocol utilizes one or more of the following dose reduction techniques: automated exposure control, adjustment of mA and/or kV according to patient size,and/or use of iterative reconstruction technique. COMPARISON: No relevant prior comparison study available FINDINGS: Normal enhancement of the main pulmonary artery and right and left pulmonary arteries. Normal enhancement of the bilateral peripheral pulmonary arteries. There is no demonstrated pulmonary embolism. There is atherosclerotic calcifications and tortuosity of the aortic arch and descending thoracic aorta. There is no demonstrated aortic dissection. Normal heart and pericardium. No evidence of coronary calcifications. Normal mediastinum. Normal hilar regions. Normal visualized trachea and bronchi. There are no pulmonary infiltrates. Bilateral apical cystic and pleural fibrotic changes. Severe centrilobular emphysema which is associated with increased incidence of cancer. Chronic changes in the right lung base. There are no pleural effusions. Normal chest wall structures. Normal osseous structures. The visualized upper abdomen demonstrate no acute process. CT/CTA Chest W/WO Contrast IMPRESSION: 1. No evidence of pulmonary embolism. 2. Severe emphysematous and chronic changes which is associated with increased incidence of cancer. Follow-up exam in one year is recommended. 3. No focal consolidation or pleural effusions. Electronically Signed: Mick Mock MD at 12:46 [facility] ,
--- NOTE | 2024-11-08 13:13 | PCM.HP.STD ---
HPI - General General Date of Admission: 11/08/24 Date of Service: 11/08/24 Chief Complaint: Worsening short of breath HPI Narrative JUANJOSE CUEVA, is a 79 F who presented to [facility] ED on 11/08/2024 with worsening shortness of breath. Patient has history of severe COPD, follows with [place] pul[facility]ology. She wears 2 L nasal cannula with exertion and 2 L at night. She was in her normal state of health until this morning when she developed fairly acute shortness of breath with wheezing at rest. States she did a DuoNeb breathing treatment with only mild relief of symptoms so she came in for further evaluation. She is currently smoking about 2 cigarettes/day. She does report compliance with her home inhalers. On arrival to the ED she was tachycardic to the 130s and was requiring nonrebreather to maintain appropriate oxygen saturations. Initial ABG showed pH 7.26, pCO2 77. She was then placed on BiPAP. She had significant improvement in work of breathing on BiPAP. CBC and CMP were unremarkable. CTA chest showed no PE or other acute changes, only showed severe emphysematous and chronic changes. She was given a dose of IV Solu-Medrol and hospitalist was contacted for admission. I saw the patient at bedside in the ED. Patient was on BiPAP when I saw her and breathing very comfortably with oxygen saturations in the high 90s. She was mentating appropriately and was asking if she could come off of the BiPAP. She stated she felt significantly better now than she did earlier today. She denied any recent upper respiratory symptoms. Has had COPD exacerbations like this in the past. She denies any acute pain or discomfort. No other acute concerns at this time. [facility] Medical History Wears dentures Wears glasses Post-menopausal Former smoker Shortness of breath on exertion Chronic cough History of echocardiogram Cardiology follow-up encounter On home oxygen therapy Hypertension Pneumonia COPD with acute exacerbation Nicotine dependence, cigarettes, uncomplicated Vitamin D deficiency Psoriasis Chronic insomnia Takotsubo cardiomyopathy Atherosclerotic heart disease of [place] coronary artery without angina pectoris Hernia Kidney stones Smoker COPD (chronic obstructive pulmonary disease) COPD exacerbation NSTEMI, initial episode of senior care Medications ?Medication ?Instructions ?Recorded ?Last Taken ?Type multivitamin-ferrous 1 tab PO DAILY HEALTH MAINTENANCE 01/31/22 10/16/23 History fumarate-folic acid 18 mg-400 mcg tablet (Multi Complete with Iron) aspirin 81 mg chewable tablet 81 mg PO BREAKFAST HEART HEALTH 02/01/22 08/25/24 Rx 30 days #30 tabs Nebulizer tubing/equipment #1 ea 05/24/23 Unknown Rx lisinopril 2.5 mg tablet 2.5 mg PO DAILY BLOOD PRESSURE 06/01/24 08/27/24 Rx #90 tabs albuterol sulfate 90 mcg/actuation 2 inh inhalation Q4H PRN SHORTNESS 07/08/24 Unknown Rx aerosol inhaler OF BREATH/WHEEZING #3 ea guaifenesin 1,200 mg tablet, 1,200 mg PO Q12H #60 tabs 07/08/24 08/27/24 Rx extended release 12 hr ipratropium 0.5 mg-albuterol 3 mg 3 ml inhalation Q4H PRN PRN SOB 07/08/24 08/28/24 Rx (2.5 mg base)/3 mL nebulization &/OR WHEEZING #180 mL soln benzonatate 200 mg capsule 200 mg PO TID PRN cough 08/26/24 Unknown History Disability Placard #2 ea 10/07/24 Unknown Rx prednisone 10 mg tablet 10 mg PO QDAY #30 tabs 10/07/24 Unknown Rx omeprazole 40 mg capsule,delayed 40 mg PO BID 90 days #180 caps 10/22/24 Unknown Rx release fluticasone fur. 100 mcg-umeclid 1 inh inhalation Q24H #60 ea 10/30/24 Unknown Rx 62.5 mcg-vilant 25 mcg inhalat.powder (Trelegy Ellipta) Allergy/AdvReac Type Severity Reaction Status Date / Time brompheniramine (From Allergy Other Verified 10/07/24 07:44 Bromphenex DM) dextromethorphan (From Allergy Other Verified 10/07/24 07:44 Bromphenex DM) pseudoephedrine (From Allergy Other Verified 10/07/24 07:44 Bromphenex DM) Family History Father COPD (chronic obstructive pulmonary disease) Colon cancer Heart disease Brother COPD (chronic obstructive pulmonary disease) Lung cancer Diabetes Heart disease Hypertension Mother Heart disease Arthritis Brother Lung cancer Brother Lung cancer Son Cancer renal Other Uterine cancer Surgical History History of cardiac catheterization H/O hernia repair H/O skin graft Cataract extraction status H/O eye surgery History of bladder surgery H/O: hysterectomy History of left heart catheterization (LHC) (~01/31/22) Social History household members: spouse current occupational status: 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 Smoking Status: Current every day smoker tobacco type: cigarettes Tobacco: How many years used: 40 Electronic Cigarette Use: not used second hand exposure: No alcohol intake: never substance use type: does not use what type of physical activity do you participate in: none do you feel safe at home: Yes ROS Constitutional Constitutional: Denies chills, fatigue, fever(s) or weakness ENT HEENT: Denies nasal congestion or nasal discharge Cardiovascular Cardiovascular: Denies chest pain Respiratory/Chest Respiratory/Chest: Reports cough, shortness of breath at rest, shortness of breath with exertion and wheezing; Denies productive cough Gastrointestinal Gastrointestinal: Denies abdominal pain Musculoskeletal Musculoskeletal: Denies arthralgias or myalgias Neurologic Neurologic: Denies dizziness, focal weakness or headache(s) Vital Signs Vital Signs Vital Signs: 11/08/24 09:50 11/08/24 09:54 11/08/24 09:55 Temperature 96.9 F L Temperature Source Oral Pulse Rate 143 H Respiratory Rate 24 H Respiratory Effort Labored Accessory Muscle Use Respiratory Pattern Tachypnea Blood Pressure 163/94 H Blood Pressure Mean 117 Pulse Ox 100 Oxygen Delivery Method Non-Rebreather Non-Rebreather Oxygen Flow Rate (L/min) 15 Fraction of Inspired Oxygen (FIO2) 11/08/24 10:01 11/08/24 10:18 11/08/24 10:25 Temperature Temperature Source Pulse Rate 135 H 126 H Respiratory Rate 18 20 H Respiratory Effort Respiratory Pattern Normal Normal Blood Pressure Blood Pressure Mean Pulse Ox 100 Oxygen Delivery Method Oxygen Flow Rate (L/min) Fraction of Inspired Oxygen (FIO2) 50 40 11/08/24 10:54 11/08/24 10:59 11/08/24 11:02 Temperature 98.3 F 98.2 F 98.2 F Temperature Source Oral Oral Pulse Rate 117 H 110 H 112 H Respiratory Rate 24 H 24 H 22 H Respiratory Effort Respiratory Pattern Blood Pressure 124/72 H 118/71 118/71 Blood Pressure Mean 89 86 86 Pulse Ox 100 98 99 Oxygen Delivery Method Bi-pap Bi-pap Oxygen Flow Rate (L/min) Fraction of Inspired Oxygen (FIO2) 11/08/24 12:00 Temperature 98.2 F Temperature Source Oral Pulse Rate 112 H Respiratory Rate 22 H Respiratory Effort Respiratory Pattern Blood Pressure 105/72 Blood Pressure Mean 83 Pulse Ox 99 Oxygen Delivery Method Bi-pap Oxygen Flow Rate (L/min) Fraction of Inspired Oxygen (FIO2) Weight Weight: 44.1 kg Body Mass Index (BMI) 19.0 Physical Exam Const alert, oriented x3 and no apparent distress Constitutional Narrative: Elderly female, thin with pulmonary cachexia, breathing comfortably on BiPAP, sitting up comfortably in bed and conversing normally, in no acute distress. General Appearance: cooperative and comfortable HEENT normocephalic, head/scalp atraumatic, hearing grossly normal bilaterally and nasal mucous membranes and turbinates normal Eyes PERRL, EOMs intact bilaterally and conjunctivae normal Neck full ROM Chest inspection of chest normal Resp normal respiratory effort and no use of accessory muscles Resp Narrative: Breathing comfortably on BiPAP at rest with good oxygen saturations. Significantly reduced breath sounds bilaterally throughout but no wheezing or crackles noted. Cardio no murmurs and peripheral pulses 2+ throughout Cardio Narrative: Tachycardic, regular rhythm. GI normal to inspection, nondistended, normoactive bowel sounds, soft to palpation, non-tender and non-distended Back/Spine normal ROM Extremity normal to inspection and no pedal edema Skin no rashes or lesions noted Psych mental status grossly normal Results Lab / Micro Data 11/08/24 09:55 11/08/24 09:55 Labs: Laboratory Results - last 24 hr 11/08/24 09:55: WBC 6.6, RBC 3.91 L, Hgb 11.6 L, Hct 38.5, MCV 98.5, MCH 29.7, MCHC 30.1 L, RDW Std Deviation 44.9 H, RDW Coeff of Carter 12.5, Plt Count 349, MPV 9.0, Immature Gran % (Auto) 0.500, Neut % (Auto) 56.6, Lymph % (Auto) 29.3, Boundary % (Auto) 10.1 H, Eos % (Auto) 2.6, Baso % (Auto) 0.9, Absolute Neuts (auto) 3.8, Absolute Lymphs (auto) 1.94, Nucleated RBC % 0, PT 12.7, INR 1.0, APTT 28.9, Sodium 141, Potassium 4.4, Chloride 101, Carbon Dioxide 35.0 H, Anion Gap 5, BUN 12, Creatinine 0.63, Estim Creat Clear Calc 41.00, Est GFR (MDRD) Af Amer 118, Est GFR (MDRD) Non-Af 98, BUN/Creatinine Ratio 19.1, Glucose 208 H, Calcium 9.2, Total Bilirubin 0.20, Direct Bilirubin < 0.05, AST 26, ALT 26, Alkaline Phosphatase 94, Troponin I High Sens 21, Total Protein 7.3, Albumin 3.5, Globulin 3.8 11/08/24 10:04: Lactic Acid 2.2 H* Micro: Microbiology 11/08/24 10:30 Mucosa - Nose SARS-CoV-2, Influenza & RSV (PCR) - Final ABG Data ABG results: ABG 11/08/24 10:36 Specimen Type ART Sample Site R Radial pH 7.26 L Bicarbonate Actual 34.9 H Total CO2 37 Base Excess 8 H O2 Saturation 99 O2 % 40.0 ABG pCO2 77.8 H* ABG pO2 156 H Igor Test N/A Respiration Rate 12 O2 Delivery Device BiPAP Vent Mode Not entered Crit Call To/Read Back Yes Blood Gas Notified Whom Dr Burgos Blood Gas Notified Time 10:38:00 Imaging Radiology Impression Chest X-Ray 11/08/24 09:50 IMPRESSION: No radiographic evidence of acute cardiopulmonary disease. Electronically Signed: Mick Mock MD at 10:23 EST , Chest CTA 11/08/24 10:58 IMPRESSION: 1. No evidence of pulmonary embolism. 2. Severe emphysematous and chronic changes which is associated with increased incidence of cancer. Follow-up exam in one year is recommended. 3. No focal consolidation or pleural effusions. Electronically Signed: Mick Mock MD at 12:46 EST , Assessment & Plan Assessment/Plan (1) Acute on chronic respiratory failure with hypoxia and hypercapnia: (2) COPD exacerbation: PLAN: Plan Patient is a 79-year-old female who presented [facility] ED on 11/08/2024 with worsening shortness of breath. 1. Acute on chronic hypoxic and hypercapnic respiratory failure secondary to COPD exacerbation ? Admit under inpatient status to PCU. Follows with [place] pul[facility]ology. Wears 2 L nasal cannula with exertion and at night. Presented with significant worsening shortness of breath and hypoxia. Unclear etiology, does not appear infectious and was negative for PE. ABG in ED showed pH 7.26, pCO2 77. Oxygenation and work of breathing much improved on BiPAP in the ED. Repeat ABG ordered and will wean patient off BiPAP shortly. CTA chest showed no PE, no other acute findings, only chronic severe emphysematous changes. COVID/flu/RSV negative. Procalcitonin normal. Will treat with IV Solu-Medrol 40 mg every 8 hours and scheduled DuoNebs for now. Continue other home inhalers. Will hold on any antibiotics. Wean supplemental oxygen as able. Will need O2 testing prior to discharge. No need for pulmonary consult here but will need close outpatient follow-up after discharge 2. Tobacco use disorder ? Extensive smoking history, currently smoking 2 cigarettes/day. Discussed cessation. Denied need for nicotine replacement therapy. 3. Mild hyperglycemia ? Blood glucose 208 on admit. No history of diabetes. Last A1c was 5.8% back in 2021. Will repeat A1c now. Will hold on any insulin therapy at this time. Chronic medical conditions: ? Underweight with pulmonary cachexia: BMI 19 on admit. Will add nutrition supplementation to meals while here. ? History of CAD with stenting, hypertension, hyperlipidemia, history of Takotsubo cardiomyopathy (resolved): Follows with [place] [facility]. Stable on admit. Continue home aspirin and lisinopril. ? Mild chronic anemia: Hemoglobin 11.6 on admit, at baseline. ? GERD: Continue home PPI. DVT prophylaxis: Lovenox CODE STATUS: DNR CCA, DNI Expected disposition: Home, 2 to 3 days Total clinical time spent by myself addressing the patient's medical issues, reviewing all the data, and collaborating with patient's care team: 55 minutes. Charges/Coding Visit Charges Inpatient E&M: 21885 Init Hosp L2
[2024-11-08 14:09] LABS: Reflex Lactate? Y
[2024-11-08 14:47] LABS: Procalcitonin 0.15 ng/mL (0.00-0.09)
[2024-11-08 14:50] LABS: Lactic Acid 1.2 mmol/L (0.4-1.9)
[2024-11-08 15:00] LABS: Allen Test Positive; Base Excess 10 mmol/L (-2 to +2); Bicarbonate 35.4 mmol/L (22-26); Blood Gas Specimen Type ART; Mode Not entered; O2 Delivery Device BiPAP; PEEP 6; PO2 90 mmHG (75-100); RR 12; SITE L Radial; SO2 96 % (95-99); Total Carbon Dioxide 37 mmol/L; pH 7.37 (7.35-7.45)
[2024-11-08 15:42] LABS: Hemoglobin A1c 5.5 % (3.8-5.6)
[2024-11-08] MEDS: Pantoprazole Sodium 40 MG Tablet PO (22:34)
[2024-11-08] MEDS: guaiFENesin 1,200 MG Tablet 1200 MG PO (22:34)
[2024-11-08] MEDS: 0.9% Saline Lock 10 ML Syringe IV (22:36)
[2024-11-08] MEDS: Benzonatate 100 MG Capsule 200 MG PO (22:43)
[2024-11-08] MEDS: MELATONIN 3 MG TABLET PO (23:06)
[2024-11-09] VITALS (11 sets, daily range): BP systolic 100–106; BP diastolic 54–72; PULSE 84–104; RESP 12–20; TEMP 35.7–36.6; O2SAT 87–100
--- NOTE | 2024-11-09 01:17 | CPS ---
Pulmicort breathing tx not given at 7pm on 11/08/24 due to SOCIAL WORK SUPERVISOR busy with critical patient
[2024-11-09] MEDS: 0.9% Saline Lock 10 ML Syringe IV ×2 (05:29→14:09)
[2024-11-09] MEDS: Budesonide Respules 0.5 MG/2 ML AMPUL.NEB. INHALATION (07:07)
[2024-11-09] MEDS: Ipratropium/Albuterol Sulfate 3 ML AMPUL.NEB INHALATION ×2 (07:07→11:23)
[2024-11-09 07:29] LABS: Hematocrit 34.8 % (37-47); Hemoglobin 10.8 g/dL (12.0-15.0); Mean Corpuscular Hgb 28.9 pg (27.0-32.0); Platelet Count 307 K/mm3 (150-450); RBC Distribution Width CV 12.7 % (11.6-14.6); RBC Distribution Width SD 43.5 fl (35.1-43.9); Red Blood Count 3.74 M/mm3 (4.2-5.4)
[2024-11-09 07:53] LABS: Anion Gap 6 (5-15); BUN 18 mg/dL (7-18); BUN/Creat Ratio 27.8 RATIO (10-20); Calcium,Total 9.7 mg/dL (8.5-10.1); Chloride 99 mmol/L (98-107); Creatinine, Serum 0.65 mg/dL (0.55-1.02); EST Glomerular Filtration Rate 94 mL/min (>60); Est Glom Filt Rate - Afr Amer 114 mL/min (>60); Estimated Creatinine Clearance 37.44 ml/min; Glucose 133 mg/dL (74-106); Potassium 4.8 mmol/L (3.5-5.1); Sodium Level 138 mmol/L (136-145)
[2024-11-09] MEDS: Enoxaparin 40 MG/0.4 ML Syringe SC (08:57)
[2024-11-09] MEDS: Pantoprazole Sodium 40 MG Tablet PO (08:57)
[2024-11-09] MEDS: guaiFENesin 1,200 MG Tablet 1200 MG PO (08:57)
[2024-11-09] MEDS: Aspirin 81 MG TAB.CHEW PO (08:57)
--- NOTE | 2024-11-09 12:10 | DS.PCM_ITS ---
Providers Date of Admission: 11/08/24 Primary Care Physician: Dr. Molly Farias, DO Reason For Visit: COPD EXACERBATION W/ ACUTE ON CHRONIC RESP FAILURE Diagnosis Discharge Diagnosis (1) Acute on chronic respiratory failure with hypoxia and hypercapnia: Status: Chronic Code(s): J96.21 - Acute and chronic respiratory failure with hypoxia; J96.22 - Acute and chronic respiratory failure with hypercapnia (2) COPD exacerbation: Status: Chronic Code(s): J44.1 - Chronic obstructive pulmonary disease with (acute) exacerbation Plan Patient is a 79-year-old female who presented [facility] ED on 11/08/2024 with worsening shortness of breath. 1. Acute on chronic hypoxic and hypercapnic respiratory failure secondary to COPD exacerbation ? Admit under inpatient status to PCU. Follows with [place] pulmonology. Wears 2 L nasal cannula with exertion and at night. Presented with significant worsening shortness of breath and hypoxia. Unclear etiology, does not appear infectious and was negative for PE. ABG in ED showed pH 7.26, pCO2 77. Oxygenation and work of breathing much improved on BiPAP in the ED. Repeat ABG ordered and will wean patient off BiPAP shortly. CTA chest showed no PE, no other acute findings, only chronic severe emphysematous changes. COVID/flu/RSV negative. Procalcitonin normal. Will treat with IV Solu-Medrol 40 mg every 8 hours and scheduled DuoNebs for now. Continue other home inhalers. Will hold on any antibiotics. Wean supplemental oxygen as able. Will need O2 testing prior to discharge. No need for pulmonary consult here but will need close outpatient follow-up after discharge 2. Tobacco use disorder ? Extensive smoking history, currently smoking 2 cigarettes/day. Discussed cessation. Denied need for nicotine replacement therapy. 3. Mild hyperglycemia ? Blood glucose 208 on admit. No history of diabetes. Last A1c was 5.8% back in 2021. Will repeat A1c now. Will hold on any insulin therapy at this time. Chronic medical conditions: ? Underweight with pulmonary cachexia: BMI 19 on admit. Will add nutrition supplementation to meals while here. ? History of CAD with stenting, hypertension, hyperlipidemia, history of Takotsubo cardiomyopathy (resolved): Follows with [place] [facility]. Stable on admit. Continue home aspirin and lisinopril. ? Mild chronic anemia: Hemoglobin 11.6 on admit, at baseline. ? GERD: Continue home PPI. DVT prophylaxis: Lovenox CODE STATUS: DNR CCA, DNI Expected disposition: Home, 2 to 3 days Total clinical time spent by myself addressing the patient's medical issues, reviewing all the data, and collaborating with patient's care team: 55 minutes. Medications at Discharge Home Medications multivitamin-ferrous fumarate-folic acid 18 mg-400 mcg tablet (Multi Complete with Iron) 1 tab PO DAILY HEALTH MAINTENANCE 01/31/22 aspirin 81 mg chewable tablet 81 mg PO BREAKFAST HEART HEALTH 30 days #30 tabs 02/01/22 Nebulizer tubing/equipment #1 ea 05/24/23 lisinopril 2.5 mg tablet 2.5 mg PO DAILY BLOOD PRESSURE #90 tabs 06/01/24 albuterol sulfate 90 mcg/actuation aerosol inhaler 2 inh inhalation Q4H PRN SHORTNESS OF BREATH/WHEEZING #3 ea 07/08/24 guaifenesin 1,200 mg tablet, extended release 12 hr 1,200 mg PO Q12H #60 tabs 07/08/24 ipratropium 0.5 mg-albuterol 3 mg (2.5 mg base)/3 mL nebulization soln 3 ml inhalation Q4H PRN PRN SOB &/OR WHEEZING #180 mL 07/08/24 benzonatate 200 mg capsule 200 mg PO TID PRN cough 08/26/24 Disability Placard #2 ea 10/07/24 omeprazole 40 mg capsule,delayed release 40 mg PO BID 90 days #180 caps 10/22/24 fluticasone fur. 100 mcg-umeclid 62.5 mcg-vilant 25 mcg inhalat.powder (Trelegy Ellipta) 1 inh inhalation Q24H #60 ea 10/30/24 Weight / BMI Weight Weight: 40.27 kg Body Mass Index (BMI) 17.3 ABG / Lab / Microbiology Data 11/09/24 07:10 11/09/24 07:10 Laboratory: Laboratory Results - last 24 hr 11/08/24 09:55: Hemoglobin A1c 5.5 11/08/24 14:03: Procalcitonin 0.15 H 11/08/24 14:15: Lactic Acid 1.2 11/09/24 07:10: WBC 7.0, RBC 3.74 L, Hgb 10.8 L, Hct 34.8 L, MCV 93.0 D, MCH 28.9, MCHC 31.0 L, RDW Std Deviation 43.5, RDW Coeff of Carter 12.7, Plt Count 307, MPV 9.0, Sodium 138, Potassium 4.8, Chloride 99, Carbon Dioxide 34.0 H, Anion Gap 6, BUN 18, Creatinine 0.65, Estim Creat Clear Calc 37.44, Est GFR (MDRD) Af Amer 114, Est GFR (MDRD) Non-Af 94, BUN/Creatinine Ratio 27.8 H, Glucose 133 H, Calcium 9.7 Microbiology: Microbiology 11/08/24 15:00 Mucosa - Nasopharyngeal Respiratory Panel (PCR) - Final 11/08/24 10:30 Mucosa - Nose SARS-CoV-2, Influenza & RSV (PCR) - Final ABG: ABG 11/08/24 14:56 Specimen Type ART Sample Site L Radial pH 7.37 Bicarbonate Actual 35.4 H Total CO2 37 Base Excess 10 H O2 Saturation 96 O2 % 30.0 ABG pCO2 61.0 H ABG pO2 90 Igor Test Positive Respiration Rate 12 O2 Delivery Device BiPAP Vent Mode Not entered POC PEEP 6 Clinical Comments 10/16 Radiography Diagnostic Testing: Radiology Impression Chest CTA 11/08/24 10:58 IMPRESSION: 1. No evidence of pulmonary embolism. 2. Severe emphysematous and chronic changes which is associated with increased incidence of cancer. Follow-up exam in one year is recommended. 3. No focal consolidation or pleural effusions. Electronically Signed: Mick Mock MD at 12:46 EST , D/C Instructions DC O2, CPAP, BIPAP Needs PSN CPAP & BiPAP: BiPAP & CPAP Settings per PSN Mode BiPAP 11/09/24 07:07 Bipap Delivery Device Face Mask 11/09/24 00:10 BiPAP Inspiratory Pressure 12 11/09/24 00:10 BiPAP Expiratory Pressure 6 11/09/24 00:10 BiPAP Rate 12 11/09/24 00:10 Fraction of Inspired Oxygen ( 30 11/09/24 02:50 FIO2) Meaningful Use Info Ischemic Stroke Statin Dosing Therapy Reference: STATIN DOSE THERAPY REFERENCE: * Patients > 75 years receive moderate or high dose statin therapy. * Patients 75 years or YOUNGER should receive HIGH intensity statin dose unless contraindicated. You will be required to document reason for non-treatment if statin daily dose does not meet guidelines. HIGH DOSE STATIN THERAPY DAILY Atorvastatin > than or = to 40 mg Rosuvastatin > than or = to 20 mg Amlodipine + Atorvastatin > than or = to 2.5/40 mg Ezetimibe + Simvastatin 10/80 mg Simvastatin 80mg Discharge Plan Admission Admit Date/Time: 11/08/24 13:27 Attending Provider: Cirilo Vega Primary Care Provider: Molly Farias Discharge Orders/Prescriptions Prescriptions: No Action albuterol sulfate 90 mcg/actuation HFA aerosol inhaler 2 inh INHALATION Q4H PRN (Reason: SHORTNESS OF BREATH/WHEEZING ) Qty: 3 6RF ipratropium-albuterol 0.5 mg-3 mg(2.5 mg base)/3 mL solution for nebulization 3 ml inhalation Q4H PRN PRN (Reason: SOB &/OR WHEEZING) Qty: 180 11RF guaifenesin 1,200 mg tablet extended release 12hr 1,200 mg PO Q12H Qty: 60 11RF Patient Comments: as needed (DME) Disability Placard See Rx Instructions .ROUTE .MEDSUPPLY Qty: 2 0RF Rx Instructions: expires 10/07/2029 Trelegy Ellipta 100-62.5-25 mcg blister with device 1 inh inhalation Q24H Qty: 60 5RF Multi Complete with Iron 18-400 mg-mcg Tablet 1 tab PO DAILY aspirin 81 mg Tablet,Chewable 81 mg PO BREAKFAST 30 Days Qty: 30 1RF benzonatate 200 mg capsule 200 mg PO TID PRN (Reason: cough) (DME) Nebulizer tubing/equipment See Rx Instructions .ROUTE .MEDSUPPLY Qty: 1 6RF Rx Instructions: As directed lisinopril 2.5 mg tablet 2.5 mg PO DAILY Qty: 90 3RF omeprazole 40 mg capsule,delayed release(DR/EC) 40 mg PO BID 90 Days Qty: 180 2RF Referrals / Follow Up: Molly Farias, [Primary Care Provider] -
--- NOTE | 2024-11-09 12:10 | PCM.DC.SUM ---
Providers Date of Admission: 11/08/24 Date of Discharge: 11/09/24 Primary Care Physician: Dr. Molly Fraias, DO Reason For Visit: COPD EXACERBATION W/ ACUTE ON CHRONIC RESP FAILURE Diagnosis Discharge Diagnosis (1) Acute on chronic respiratory failure with hypoxia and hypercapnia: Status: Chronic Code(s): J96.21 - Acute and chronic respiratory failure with hypoxia; J96.22 - Acute and chronic respiratory failure with hypercapnia (2) COPD exacerbation: Status: Chronic Code(s): J44.1 - Chronic obstructive pulmonary disease with (acute) exacerbation Medications at Discharge Home Medications multivitamin-ferrous fumarate-folic acid 18 mg-400 mcg tablet (Multi Complete with Iron) 1 tab PO DAILY HEALTH MAINTENANCE 01/31/22 aspirin 81 mg chewable tablet 81 mg PO BREAKFAST HEART 5 examples 30 days #30 tabs 02/01/22 Nebulizer tubing/equipment #1 ea 05/24/23 lisinopril 2.5 mg tablet 2.5 mg PO DAILY BLOOD PRESSURE #90 tabs 06/01/24 albuterol sulfate 90 mcg/actuation aerosol inhaler 2 inh inhalation Q4H PRN SHORTNESS OF BREATH/WHEEZING #3 ea 07/08/24 guaifenesin 1,200 mg tablet, extended release 12 hr 1,200 mg PO Q12H #60 tabs 07/08/24 ipratropium 0.5 mg-albuterol 3 mg (2.5 mg base)/3 mL nebulization soln 3 ml inhalation Q4H PRN PRN SOB &/OR WHEEZING #180 mL 07/08/24 benzonatate 200 mg capsule 200 mg PO TID PRN cough 08/26/24 Disability Placard #2 ea 10/07/24 omeprazole 40 mg capsule,delayed release 40 mg PO BID 90 days #180 caps 10/22/24 fluticasone fur. 100 mcg-umeclid 62.5 mcg-vilant 25 mcg inhalat.powder (Trelegy Ellipta) 1 inh inhalation Q24H #60 ea 10/30/24 prednisone 10 mg tablet See Taper PO DAILY #105 tabs 11/09/24 Hospital Course Operations None Procedures EKG and - (Chest x-ray, CTA chest) Summary of Care Provided Minutes Spent on Discharge: 35 Hospital Course: Patient is a 79-year-old female who presented [facility] ED on 11/08/2024 with worsening shortness of breath. Short hospital course as noted below. Patient discharged home in stable condition on 11/09. 1. Acute on chronic hypoxic and hypercapnic respiratory failure secondary to COPD exacerbation ? Follows with [place] pulmonology. Wears 2 L nasal cannula at all times. Presented with significant worsening shortness of breath and hypoxia. Unclear etiology, did not appear infectious and was negative for PE. Initial ABG in ED showed pH 7.26, pCO2 77. Oxygenation and work of breathing much improved on BiPAP in the ED and repeat ABG showed pH 7.37 and pCO2 61. CTA chest showed no PE, no other acute findings, only chronic severe emphysematous changes. COVID/flu/RSV negative. Procalcitonin normal, no need for antibiotics. Treated with IV steroids and scheduled DuoNebs and patient was weaned back to her home level of oxygen by hospital day 2. Discharged on prolonged prednisone taper. Okay to continue other home inhalers as normal. Recommended close outpatient follow-up with pulmonology after discharge. 2. Tobacco use disorder ? Extensive smoking history, currently smoking 2 cigarettes/day. Discussed cessation. Denied need for nicotine replacement therapy while inpatient 3. Mild hyperglycemia ? Blood glucose 208 on admit. No history of diabetes. Last A1c was 5.8% back in 2021, repeat A1c 5.5% on admit. No need for further management. Chronic medical conditions: ? Underweight with pulmonary cachexia: BMI 19 on admit. Added nutrition supplementation to meals while inpatient. ? History of CAD with stenting, hypertension, hyperlipidemia, history of Takotsubo cardiomyopathy (resolved): Follows with [place] [facility]. Stable on admit. Continue home aspirin and lisinopril. ? Mild chronic anemia: Hemoglobin 11.6 on admit, at baseline. ? GERD: Continue home PPI. *Patient was admitted under inpatient status but recovered more quickly than anticipated and was able to be discharged home on hospital day 2. Total clinical time spent by myself addressing the patient's medical issues, reviewing all the data, and collaborating with patient's care team: 35 minutes. Physical Exam Const alert, oriented x3 and no apparent distress Constitutional Narrative: Elderly female, thin with pulmonary cachexia, breathing comfortably on 2L NC, sitting up comfortably in bed and conversing normally, in no acute distress. General Appearance: cooperative and comfortable HEENT normocephalic, head/scalp atraumatic, hearing grossly normal bilaterally and nasal mucous membranes and turbinates normal Eyes PERRL, EOMs intact bilaterally and conjunctivae normal Neck full ROM Chest inspection of chest normal Resp normal respiratory effort and no use of accessory muscles Resp Narrative: Breathing comfortably on 2L NC at rest with good oxygen saturations. Mild to moderately reduced breath sounds bilaterally but improved from admission and no wheezing or crackles noted. Cardio regular rate, regular rhythm, no murmurs and peripheral pulses 2+ throughout GI normal to inspection, nondistended, normoactive bowel sounds, soft to palpation, non-tender and non-distended Back/Spine normal ROM Extremity normal to inspection and no pedal edema Skin no rashes or lesions noted Psych mental status grossly normal Weight / BMI Weight Weight: 40.27 kg Body Mass Index (BMI) 17.3 ABG / Lab / Microbiology Data 11/09/24 07:10 11/09/24 07:10 Laboratory: Laboratory Results - last 24 hr 11/08/24 09:55: Hemoglobin A1c 5.5 11/09/24 07:10: WBC 7.0, RBC 3.74 L, Hgb 10.8 L, Hct 34.8 L, MCV 93.0 D, MCH 28.9, MCHC 31.0 L, RDW Std Deviation 43.5, RDW Coeff of Carter 12.7, Plt Count 307, MPV 9.0, Sodium 138, Potassium 4.8, Chloride 99, Carbon Dioxide 34.0 H, Anion Gap 6, BUN 18, Creatinine 0.65, Estim Creat Clear Calc 37.44, Est GFR (MDRD) Af Amer 114, Est GFR (MDRD) Non-Af 94, BUN/Creatinine Ratio 27.8 H, Glucose 133 H, Calcium 9.7 Microbiology: Microbiology 11/08/24 15:00 Mucosa - Nasopharyngeal Respiratory Panel (PCR) - Final 11/08/24 10:30 Mucosa - Nose SARS-CoV-2, Influenza & RSV (PCR) - Final ABG: ABG 11/08/24 14:56 Specimen Type ART Sample Site L Radial pH 7.37 Bicarbonate Actual 35.4 H Total CO2 37 Base Excess 10 H O2 Saturation 96 O2 % 30.0 ABG pCO2 61.0 H ABG pO2 90 Igor Test Positive Respiration Rate 12 O2 Delivery Device BiPAP Vent Mode Not entered POC PEEP 6 Clinical Comments 10/16 Radiography Diagnostic Testing: Radiology Impression Chest CTA 11/08/24 10:58 IMPRESSION: 1. No evidence of pulmonary embolism. 2. Severe emphysematous and chronic changes which is associated with increased incidence of cancer. Follow-up exam in one year is recommended. 3. No focal consolidation or pleural effusions. Electronically Signed: Mick Mock MD at 12:46 EST , D/C Instructions DC O2, CPAP, BIPAP Needs RN Home O2 Qualification: Home O2 Qualification: Is the patient on home oxygen Yes 11/09/24 12:16 Home O2 Qualification: AT REST 1-Pulse Ox at rest 96 11/09/24 12:16 1- Oxygen flow rate at rest 2 11/09/24 12:16 Home O2 Qualification: WITH AMBULATION 1- Pulse Ox with ambulation 95 11/09/24 12:16 1- Oxygen Flow Rate with 2 11/09/24 12:16 ambulation PSN CPAP & BiPAP: BiPAP & CPAP Settings per PSN Mode BiPAP 11/09/24 07:07 Bipap Delivery Device Face Mask 11/09/24 00:10 BiPAP Inspiratory Pressure 12 11/09/24 00:10 BiPAP Expiratory Pressure 6 11/09/24 00:10 BiPAP Rate 12 11/09/24 00:10 Fraction of Inspired Oxygen ( 30 11/09/24 02:50 FIO2) Home O2 Discharge instructions: No Meaningful Use Info Meaningful Use Meaningful Use Diagnoses (Choose all that apply): None applicable Ischemic Stroke Statin Dosing Therapy Reference: STATIN DOSE THERAPY REFERENCE: * Patients > 75 years receive moderate or high dose statin therapy. * Patients 75 years or YOUNGER should receive HIGH intensity statin dose unless contraindicated. You will be required to document reason for non-treatment if statin daily dose does not meet guidelines. HIGH DOSE STATIN THERAPY DAILY Atorvastatin > than or = to 40 mg Rosuvastatin > than or = to 20 mg Amlodipine + Atorvastatin > than or = to 2.5/40 mg Ezetimibe + Simvastatin 10/80 mg Simvastatin 80mg Discharge Plan Admission Admit Date/Time: 11/08/24 13:27 Primary Reason for Your Visit: Shortness of breath Attending Provider: Cirilo Vega Primary Care Provider: Molly Farias Instructions Additional Instructions / Restrictions: ? Please take prednisone with taper as noted below. ? Please continue your home inhalers as normal. ? Follow-up with pulmonology in the office as needed. Discharge Orders/Prescriptions Prescriptions: New prednisone 10 mg tablet See Taper PO DAILY Qty: 105 0RF Taper: Prednisone Taper 60 mg WITH BREAKFAST for 5 Days and 0 Hour 50 mg WITH BREAKFAST for 5 Days and 0 Hour 40 mg WITH BREAKFAST for 5 Days and 0 Hour 30 mg WITH BREAKFAST for 5 Days and 0 Hour 20 mg WITH BREAKFAST for 5 Days and 0 Hour 10 mg WITH BREAKFAST for 5 Days and 0 Hour Continued albuterol sulfate 90 mcg/actuation HFA aerosol inhaler 2 inh INHALATION Q4H PRN (Reason: SHORTNESS OF BREATH/WHEEZING ) Qty: 3 6RF ipratropium-albuterol 0.5 mg-3 mg(2.5 mg base)/3 mL solution for nebulization 3 ml inhalation Q4H PRN PRN (Reason: SOB &/OR WHEEZING) Qty: 180 11RF guaifenesin 1,200 mg tablet extended release 12hr 1,200 mg PO Q12H Qty: 60 11RF Patient Comments: as needed (DME) Disability Placard See Rx Instructions .ROUTE .MEDSUPPLY Qty: 2 0RF Rx Instructions: expires 10/07/2029 Trelegy Ellipta 100-62.5-25 mcg blister with device 1 inh inhalation Q24H Qty: 60 5RF Multi Complete with Iron 18-400 mg-mcg Tablet 1 tab PO DAILY aspirin 81 mg Tablet,Chewable 81 mg PO BREAKFAST 30 Days Qty: 30 1RF benzonatate 200 mg capsule 200 mg PO TID PRN (Reason: cough) (DME) Nebulizer tubing/equipment See Rx Instructions .ROUTE .MEDSUPPLY Qty: 1 6RF Rx Instructions: As directed lisinopril 2.5 mg tablet 2.5 mg PO DAILY Qty: 90 3RF omeprazole 40 mg capsule,delayed release(DR/EC) 40 mg PO BID 90 Days Qty: 180 2RF Referrals / Follow Up: Molly Farias DO [Primary Care Provider] - Disposition Disposition (needs filled in before D/C Order can be placed): Home, Self Care Charges/Coding Visit Charges Inpatient E&M: 46876 Disch Hosp >30min
--- NOTE | 2024-11-09 13:29 | CASEMGMT ---
Addendum entered by Darvin Chong 11/09/24 14:15: Call placed back to [facility] and they were provided w/prednisone taper instructions. Addendum entered by Darvin Chong 11/09/24 14:08: Call placed to [facility]. They state are unable to view Prednisone taper directions. GEETA Cazares RN, CM, made aware. Addendum entered by Darvin Chong 11/09/24 14:05: Pt received a text alert from [facility] that a clarification was needed on a medication. Original Note: PADDY MAYS Assessment: PADDY MAYS to room to meet with pt for initial transition planning/care coordination assessment. PADDY MAYS introduced self and role at [facility], pt voices understanding and consents to assessment. Pt is A&O x4 and answers all questions appropriately at this time. Pt resting in bed w/HOB elevated, in no distress with oxygen on. @ bedside. Care providers, pharmacy, and demographics verified/updated. Strata: 2 PCP:Dr Farias Specialists: Dr Shiva Olson/Osiris Vanegas, [employer]- pulmonology, [facility]/Cardiology Preferred Pharmacy: [facility] Insurance: [employer] [facility] Prescription Benefit: yes LNOK: Rich Soria, Living Arrangements: Pt lives with in a mobile home with 3 steps to enter. Pt reports she is I in ADL's and denies concerns at home. Pt and family share home mgnt tasks. Transportation: Pt drives self and denies concerns with transportation. also drives. DME:nebulizer, pox, oxygen through [employer] @ 2 l/m continuous, per pt report. Pt has concentrator and portability. has portable oxygen tank in his car for pt to go home on. HHC/SNF: Denies hx of either Pt states no concerns with going home at time of dc. Pt declines wanting HHC or OP therapy and declines having any needs of assistance w/medication mgnt. Pt states no further concerns/needs. Plan: Home, follow for any increase in oxygen needs. Kayode RUSHING RN, CM
--- NOTE | 2024-11-09 16:02 | CASEMGMT ---
Patient has order for discharge. Patient requires increase in home oxygen to 2lpm continuously. RN TABATHA received script from hospitalist and updated referral sent to [facility] via [facility]. RN CM in to discuss needs at discharge. RN CM update regarding increase in home oxygen. Patient states she has portable tank to go home with. Patient denies further needs or concerns at discharge. Patient had no further questions or concerns.
== END 2024-11-09 16:45 | disposition home or self-care (01) | DRG 189 ==
LOC: ED 11:05 → PCU 14:08
PROVIDERS: Admitting Provider Hospitalist; Emergency Provider Emergency Medicine; PCP Family Medicine; Visit Provider Hospitalist
DX: J96.21 Acute and chronic respiratory failure with hypoxia (principal); J44.1 Chronic obstructive pulmonary disease with (acute) exacerbation; R64 Cachexia; Z68.1 Body mass index [BMI] 19.9 or less, adult; Z66 Do not resuscitate; D64.9 Anemia, unspecified; I10 Essential (primary) hypertension; J96.22 Acute and chronic respiratory failure with hypercapnia; F17.210 Nicotine dependence, cigarettes, uncomplicated; E78.5 Hyperlipidemia, unspecified; I25.10 Atherosclerotic heart disease of native coronary artery without angina pectoris; K21.9 Gastro-esophageal reflux disease without esophagitis; Z90.710 Acquired absence of both cervix and uterus; R73.9 Hyperglycemia, unspecified; Z79.82 Long term (current) use of aspirin; Z79.891 Long term (current) use of opiate analgesic; R63.6 Underweight; Z79.51 Long term (current) use of inhaled steroids
CPT/HCPCS: 36415; 36600; 71045; 71275; 80048; 80076; 82803; 83036; 83605; 84145; 84484; 85025; 85027; 85610; 85730; 87040; 87070; 87077; 87186; 87205; 87631; 87633; 93005; 94002; 94003; 94640; 94668; 94762; 97802; 99285; Q9967; A4216

== ENCOUNTER → 2024-12-21 | Outpatient (CLI) | payer MEDICARE, SELFPAY | END | disposition home or self-care (01) | LOC: PSN 06:31 | PROVIDERS: PCP Family Medicine; Referring Provider Nurse Practitioner Family; Visit Provider Nurse Practitioner Family | DX: J44.9 Chronic obstructive pulmonary disease, unspecified (principal) | CPT/HCPCS: 94060; 94726; 94729 ==

== ENCOUNTER → 2025-02-22 | Outpatient (CLI) | payer MEDICARE, SELFPAY ==
--- NOTE | 2025-02-22 07:44 | ECHOCS_ITS ---
Reason For Study Reason For Study: SOB Procedure This was a 2D Doppler, Color Flow transthoracic echocardiogram. Exam performed in department. Left Ventricle Normal LV size. Mild concentric left ventricular hypertrophy. The left ventricular ejection fraction is 70 %. Stage 1 diastolic dysfunction. Right Ventricle Normal right ventricle. Atria The left and right atria are normal. Mitral Valve There is Moderate focal posterior mitral annular calcification. Trivial mitral valve insufficiency. Tricuspid Valve Trivial tricuspid valve insufficiency. Right ventricular systolic pressure estimated to be 42 mmHg. Aortic Valve Trisinus/trileaflet aortic valve. Pulmonic Valve The pulmonic valve is not well visualized. Great Vessels Normal sized aortic root. Pericardium/Pleural No pericardial effusion. MMode/2D Measurements & Calculations LVIDd: 3.5 cm IVSd: 1.0 cm LVAd ap4: 20.2 cm2 LVIDs: 2.5 cm LVPWd: 1.2 cm LVLd ap4: 6.6 cm FS: 27.6 % EDV(MOD-sp4): 52.0 ml EDV(sp4-el): 52.6 ml LVAs ap4: 11.8 cm2 LVLs ap4: 5.6 cm ESV(MOD-sp4): 22.0 ml ESV(sp4-el): 21.2 ml EF(MOD-sp4): 57.8 % EF(sp4-el): 59.7 % SV(MOD-sp4): 30.1 ml SV(sp4-el): 31.4 ml LA dimension(2D): 2.3 cm SI(MOD-sp4): 22.2 ml/m2 Time Measurements MV dec time: 0.11 sec Doppler Measurements & Calculations MV E max lauro: 77.4 cm/sec Lat Peak E' Lauro: 7.5 cm/sec Med Peak E' Lauro: 5.7 cm/sec MV A max lauro: 95.6 cm/sec E/E' lat: 10.3 E/E' med: 13.5 MV E/A: 0.81 MV V2 max: 105.3 cm/sec Ao V2 max: 113.1 cm/sec MV max P.4 mmHg MV dec slope: 719.3 cm/sec2 Ao max P.1 mmHg MV V2 mean: 78.4 cm/sec Ao V2 mean: 81.8 cm/sec MV mean P.6 mmHg Ao mean P.9 mmHg MV V2 VTI: 21.5 cm Ao V2 VTI: 24.3 cm AV (velocity ratio): 0.88 LV V1 max: 121.4 cm/sec PA V2 max: 128.7 cm/sec TR max lauro: 304.4 cm/sec LV V1 max P.9 mmHg PA V2 mean: 84.1 cm/sec TR max P.1 mmHg LV V1 mean P.8 mmHg LV V1 mean: 76.9 cm/sec LV V1 VTI: 21.4 cm ECHO/Echo Complete W/ Contrast Interpretation Summary Mild concentric left ventricular hypertrophy. The left ventricular ejection fraction is 70 %. Stage 1 diastolic dysfunction. There is Moderate focal posterior mitral annular calcification. Right ventricular systolic pressure estimated to be 42 mmHg. Ordering Physician: Wendy Khan Referring Physician: Wendy Khan Performed By: Dania Flores RCS
== END | disposition home or self-care (01) ==
LOC: CVS 07:41
PROVIDERS: PCP Family Medicine; Referring Provider Nurse Practitioner Family; Visit Provider Nurse Practitioner Family
DX: R06.02 Shortness of breath (principal)
CPT/HCPCS: 93306; C8929

== ENCOUNTER → 2025-05-12 | Outpatient (CLI) | payer MEDICARE, SELFPAY | END | disposition home or self-care (01) | LOC: MTRAD 10:47 | PROVIDERS: PCP Family Medicine; Referring Provider Internal Medicine Gastroenterology; Visit Provider Internal Medicine Gastroenterology | DX: R10.9 Unspecified abdominal pain (principal); K59.00 Constipation, unspecified | CPT/HCPCS: 74019 ==

== ENCOUNTER → 2025-11-08 | Outpatient (CLI) | payer MEDICARE, SELFPAY ==
--- NOTE | 2025-11-08 08:27 | CT_ITS ---
PROCEDURE: LOW DOSE CT LUNG SCREENING 11/08/2025 REASON FOR EXAM: SMOKER TECHNIQUE: Procedure Code: [id number] Modality: CT Procedure: LOW DOSE CT LUNG SCREENING Coronal and Sagittal reconstruction series were provided. One or more dose reduction techniques were used (e.g., Automated exposure control, adjustment of the mA and/or kV according to patient size, use of iterative reconstruction technique). REFERENCE LINK: [employer] Lung-RADS RADIATION DOSE SUMMARY: CTDlvol: 2.01 mGy DLP: 68.96 mGycm COMPARISON: CT scan on 11/08/2024. FINDINGS: PULMONARY NODULES: (Only nodules >3mm are reported) Nodules described below are on series 2 unless otherwise specified. Pulmonary Nodules: None. Unchanged bilateral moderate to severe pulmonary emphysema. Unchanged bilateral apical pleural-parenchymal thickening and scarring. Unchanged osteopenia and diffuse spondylosis. Unchanged mild coronary artery calcifications. Normal unenhanced main pulmonary artery and right and left pulmonary arteries. Normal bilateral peripheral pulmonary arteries. Normal thoracic aorta and visualized great vessels. There is no demonstrated aortic aneurysm. Normal heart and pericardium. Normal mediastinum. Normal hilar regions. Normal visualized trachea and thickened bronchi. Normal visualized upper abdomen. CT/Low Dose CT Lung Screening IMPRESSION: Unchanged bilateral moderate to severe pulmonary emphysema. Unchanged bilateral apical pleural-parenchymal thickening and scarring. Unchanged osteopenia and diffuse spondylosis. Unchanged mild coronary artery calcifications. Coronary artery calcification (CAC) is present Lung-RADS Category: 2 BENIGN (BASED ON IMAGING FEATURES OR INDOLENT BEHAVIOR). RECOMMEND 12-MONTH SCREENING LDCT. Reading Location: [facility]
== END | disposition home or self-care (01) ==
PROVIDERS: PCP Family Medicine; Referring Provider Nurse Practitioner Family; Visit Provider Nurse Practitioner Family
DX: F17.210 Nicotine dependence, cigarettes, uncomplicated (principal)
CPT/HCPCS: 71271